=== PATIENT | female | born 1950 | race Caucasian/White ===

== ENCOUNTER 2016-09-14 11:45 | Inpatient (IN) | payer MEDICARE ==
[~2016-09-14] VITALS: Ht 165.1 cm; Wt 66.8 kg
--- NOTE | ~2016-09-14 | HEMODYNAMI ---
PATIENT:KATHARINA RAHMAN MEDICAL RECORD: [id number] : 54 LOCATION:[address] ADMISSION DATE: 09/14/16 Generatedon:09/16/201611:59 Patient name: KATHARINA RAHMAN Patient #: [id number] SSN: : 1950 Date of study: 09/16/2016 Page: Of Hemodynamic Procedure Report Patient Data Patient Demographics Procedure consent was obtained First Name: KATHARINA Gender: Female Last Name: LACEY : 1950 Patient #: [id number] Age: 66 year(s) Race: Unknown Additional ID: [id number] Contact details [address]: [address] [place] [address] State: [place] City: [place] Zip code: [address] Past Medical History Allergies Allergen Reaction Date Comments Reported Other allergy 09/16/2016 Elle Landeros Admission Admission Data Admission Date: 09/14/2016 Admission Time: 15:45 Room #: 2121 Procedure Procedure Types Cath Procedure Diagnostic Procedure [facility] w/Coronaries FFR/IVUS Intra-Coronary IVUS Initial PCI Procedure Coronary Stent Initial Miscellaneous Procedures Moderate Sedation up to 15 minutes Procedure Description Procedure Date Procedure Date: 09/16/2016 Procedure Start Time: 11:29 Procedure End Time: 11:55 Procedure Staff Name Function Nathaniel Aden MD Performing Physician Isaiah Soliman RT Scrub Ron Henry RN Nurse Roxy Arce RT Monitor Procedure Data Cath Procedure Fluoroscopy Diagnostic fluoroscopy Total fluoroscopy Time: 3.6 time: 3.6 min min Diagnostic fluoroscopy Total fluoroscopy dose: 629 dose: 629 mGy mGy Contrast Material Contrast Material Type Amount (ml) Isovue 300 97 Entry Location Entry Primary Successful Side Size Upsize Upsize Entry Closure Succes sful Closure Location (Fr) 1 (Fr) 2 (Fr) Remarks Device Remarks Femoral Right 5 Fr 6 Fr Exoseal artery Short Estimated blood loss: 10 ml Diagnostic catheters Device Type Used For End Catheter Placement Cordis 5Fr Pigtail Procedure Catheter (MP) Cordis 5Fr JL 4.0 Left Coronary Catheter (MP) Angiography Cordis 5Fr 3DRC Catheter Procedure (MP) Procedure Complications No complications Procedure Medications Medication Administration Route Dosage Oxygen NC 3 l/min Lidocaine 2% added to field 20 Heparin Flush Bag added to field 2 bags (1000units/500ml NS) 0.9% NaCl I.V. 100 ml/hr Fentanyl I.V. 50 mcg Radial Cocktail added to field 1 syringe (Verapomil 2mg/Nitro 400mcg/Heparin 1500units) Versed I.V. 1 mg Fentanyl I.V. 25 mcg Versed I.V. 1 mg Fentanyl I.V. 25 mcg Heparin Bolus I.V. 4000 units Integrilin (Bolus I.V. 6.2 ml 2mg/ml) Plavix P.O. 600 mg Hemodynamics Rest Heart Rate: 70 (bpm) Snapshots Pre Cath Intra NCS Post Cath Vital Signs Time Heart Resp SPO2 etCO2 [id number] NIBP Rhythm Pain Status Sed ation Rate (ipm) (%) (mmHg) (mmHg) (mmHg) Level (bpm) 11:15:51 68 19 91 0 0 111/69(98) NSR 8 (11) , 10( A) Utterly horrible 11:20:01 71 17 92 0 0 100/62(89) NSR 8 (11) , 10( A) Utterly horrible 11:24:09 71 17 92 0 0 108/58(79) NSR 8 (11) , 10( A) Utterly horrible 11:28:19 71 18 93 0 0 105/62(89) NSR 6 (11) , 10( A) Intense 11:32:29 77 17 92 0 0 106/56(79) NSR 2 (11) , 9(A ) Uncomfortable 11:36:39 76 16 91 0 0 105/59(82) NSR 0 (11) , No 9(A ) pain 11:40:48 76 15 91 0 0 100/57(76) NSR 0 (11) , No 9(A ) pain 11:44:56 77 16 91 0 0 105/55(80) NSR 0 (11) , No 9(A ) pain 11:49:04 77 18 92 0 0 97/64(84) NSR 0 (11) , No 9(A ) pain 11:53:08 79 18 93 0 0 114/65(92) NSR 0 (11) , No 9(A ) pain 11:58:29 76 17 92 0 0 99/62(87) NSR 0 (11) , No 10( A) pain Medications Time Medication Route Dose Verified Delivered Reason Note s Effectiveness by by 11:14:38 Oxygen NC 3 l/min Nathaniel Buffie used for Keiko Henry RN procedure 11:14:47 Lidocaine 2% added 20ml Nathanieljocelyn Armstrong for local to vial Keiko Aden MD anesthetic field 11:14:54 Heparin Flush added 2 bags Nathaniel Armstrong used for Bag to Keiko Aden MD procedure (1000units/500ml field NS) 11:15:05 0.9% NaCl I.V. 100 Nathaniel Buffie Per physician ml/hr Keiko Henry RN 11:24:32 Fentanyl I.V. 50 mcg Nathaniel Velasquez for chest Keiko Henry RN pain/rib 11:26:36 Radial Cocktail added 1 Nathaniel Velasquez not (Verapomil to syringe Keiko Henry RN used, 2mg/Nitro field femoral 400mcg/Heparin access 1500units) obtained 11:30:48 Versed I.V. 1 mg Nathaniel Velasquez for sedation Keiko Henry RN 11:30:54 Fentanyl I.V. 25 mcg Nathaniel Velasquez for chest Keiko Henry RN pain/rib 11:42:39 Versed I.V. 1 mg Nathaniel Velasquez for sedation Keiko Henry RN 11:42:44 Fentanyl I.V. 25 mcg Nathaniel Velasquez for chest Keiko Henry RN pain/rib 11:47:08 Heparin Bolus I.V. 4000 Nathaniel Velasquez for veri fied units Keiko Henry RN anticoagulation with dr aden 11:49:35 Integrilin I.V. 6.2 ml Nathaniel Velasquez for Wast ed (Bolus 2mg/ml) Keiko Henry RN antiplatelet 3.8 ml therapy of vial 11:56:38 Plavix P.O. 600 mg Nathaniel Velasquez for Keiko Henry RN antiplatelet therapy Procedure Log Time Note 10:38:23 ACC Patient presents with Unstable Angina CCS Anginal Class 3--Marked limitation of physical activity, angina occurs with ordinary activity.. 10:38:25 Diagnostic Cath status Urgent 10:38:27 Iasiah Soliman RT(R) sent for patient. Start room use. 10:38:37 Time tracking: Regular hours 10:38:41 Plan of Care:Hemodynamics will remain stable., Cardiac rhythm will remain stable., Comfort level will be maintained., Respiratory function will remain adequate., Patient/ family verbilizes understanding of procedure., Procedure tolerated without complication., Recovers from procedure without complications.. 11:14:38 Oxygen 3 l/min NC was administered by Ron Henry RN; used for procedure; 11:14:42 Patient received from Med II to CCL 1 Alert and oriented. Tansferred to table in Supine position. 11:14:43 Warm blankets applied, and ray hugger turned on for patient comfort. 11:14:45 Correct patient and procedure confirmed by team. 11:14:47 Lidocaine 2% 20ml vial added to field was administered by Nathaniel Aden MD; for local anesthetic; 11:14:47 Signed procedure consent form obtained from patient. 11:14:48 ECG and BP/O2 sat monitors applied to patient. 11:14:49 Vital chart was started 11:14:51 Baseline sample Acquired. 11:14:54 Heparin Flush Bag (1000units/500ml NS) 2 bags added to field was administered by Nathaniel Aden MD; used for procedure; 11:14:55 Rhythm: sinus rhythm 11:14:57 Full Disclosure recording started 11:15:04 H&P Date Dictated: 09/15/2016 Within 30 days and on chart.. 11:15:05 0.9% NaCl 100 ml/hr I.V. was administered by Ron Henry RN; Per physician; 11:15:07 Pre-procedure instructions explained to patient. 11:15:08 Family in waiting room. 11:15:11 Patient NPO since Midnight. 11:15:31 Patient allergic to Other allergyCeclor, Codeine 11:15:34 Is the patient allergic to Iodine/contrast media? No. 11:15:36 Is patient on blood thinner?No 11:15:38 Patient diabetic? No. 11:15:42 Snore? Yes 11:15:43 Sleep apnea? No 11:15:45 Deviated septum? No 11:15:55 Dentures? No ? 11:16:19 Patient pain scale 8/10 Rib pain. 11:16:26 IV patent on arrival in right hand with 0.9% NaCl at [facility]. 11:16:33 Lab results completed and on chart. 11:16:37 Right Radial & Right Groin area was prepped with chlora-prep and draped in sterile fashion 11:16:39 Alarms reviewed by R. N. 11:16:40 Sharps counted by scrub and verified by R.N. 11:16:43 Physician paged 11:19:03 Airway obstruction? Yes COPD 11:21:40 Use device set Radial Dx 11:21:42 Acist Syringe opened to sterile field. 11:21:42 Medline Cath Pack opened to sterile field. 11:21:42 Bag Decanter opened to sterile field. 11:21:43 Terumo 6Fr Slender Glidesheath opened to sterile field. 11:21:43 St Moreno 260cm J .035 wire opened to sterile field. 11:21:44 Acist Hand Control opened to sterile field. 11:21:44 Acist Manifold opened to sterile field. 11:21:45 Tegaderm 4 x 4 opened to sterile field. 11:21:45 MBrace Wrist Support opened to sterile field. 11:24:11 Zero performed for pressure channel P1 11:24:27 Zero performed for pressure channel P1 11:24:32 Fentanyl 50 mcg I.V. was administered by Ron Henry RN; for chest pain/rib; 11:26:36 Radial Cocktail (Verapomil 2mg/Nitro 400mcg/Heparin 1500units) 1 syringe added to field was administered by Ron Henry RN; ; not used, femoral access obtained 11:28:50 Physician arrived 11::51 --------ALL STOP TIME OUT------ 11:28:51 Final Timeout: patient, procedure, and site verified with staff and physician. All members of the team are in agreement. 11:28:54 Right Radial & Right Groin site verified by team. 11:28:58 Physical assessment completed. ASA score P 3 - A patient with severe systemic disease as per Nathaniel Aden MD. 11:29:01 Sedation plan: IV Moderate Sedation Versed, Fentanyl 11:29:35 Procedure started. 11:29:48 Local anesthetic to right radial artery with Lidocaine 2% by Nathaniel Aden MD.INITIAL ACCESS ONLY 11:30:48 Versed 1 mg I.V. was administered by Ron Henry RN; for sedation; 11:30:54 Fentanyl 25 mcg I.V. was administered by Ron Henry RN; for chest pain/rib; 11:33:38 No Radial 11:33:57 Use device set Multipack Set 11:34:43 Local anesthetic to right femoral artery with Lidocaine 2% by Nathaniel Aden MD.ADDITIONAL ACCESS 11:34:54 A 5 Fr sheath was inserted into the Right Femoral artery 11:35:01 Terumo 5Fr Jackson Sheath opened to sterile field. 11:35:03 Diagnostic Infinity 5Fr Multipack catheter opened to sterile field. 11:37:25 A Cordis 5Fr Pigtail Catheter (MP) was advanced over the wire and used for Procedure. 11:38:38 LV angiography performed. 11:38:50 EF : 55 % 11:38:51 Catheter removed. 11:39:02 A Cordis 5Fr JL 4.0 Catheter (MP) was advanced over the wire and used for Left Coronary Angiography. 11:39:52 Catheter removed. 11:40:19 A Cordis 5Fr 3DRC Catheter (MP) was advanced over the wire and used for Procedure. 11:40:22 RCA angiography performed. 11:42:39 Versed 1 mg I.V. was administered by Ron Henry RN; for sedation; 11:42:44 Fentanyl 25 mcg I.V. was administered by Ron Henry RN; for chest pain/rib; 11:42:46 Terumo 6Fr Jackson Sheath opened to sterile field. 11:43:00 Sheath upsized to a 6 Fr Short. 11:43:06 Medtronic Launcher 6Fr 3DRC guide catheter opened to sterile field. 11:43:15 6 Fr 3DRC guide catheter was inserted over the wire 11:43:26 Pereira Whisper J 300cm 0.014 guide wire opened to sterile field. 11:43:29 Wire advanced across lesion. 11:43:35 [employer] BasixCompak Inflation Kit opened to sterile field. 11:43:36 [place] Eagleye IVUS Catheter opened to sterile field. 11:43:45 IVUS catheter advanced over wire. 11:47:08 Heparin Bolus 4000 units I.V. was administered by Ron Henry RN; for anticoagulation; verified with dr aden 11:49:35 Integrilin (Bolus 2mg/ml) 6.2 ml I.V. was administered by Ron Henry RN; for antiplatelet therapy; Wasted 3.8 ml of vial 11:51:18 Inflation Number: 1 A Medtronic Integrity 4.0 X 15 stent was prepped and advanced across the Prox RCA. The stent was deployed at 15 ROBBIN for 0:10 (min:sec). 11:51:52 Wire removed. 11:51:53 Guide catheter removed. 11:52:06 Sheath removed intact; hemostasis achieved with Exoseal to the Right Femoral artery. 11:52:14 Cordis 6Fr Exoseal opened to sterile field. 11:52:17 Procedure ended.(Physican Out) 11:52:29 Fluoroscopy time 03.60 minutes. 11:53:04 Fluoroscopy dose: 629 mGy 11:53:04 Flurop Dose total: 629 11:53:08 Contrast amount:Isovue 300 97ml. 11:53:11 Sharps counted by scrub and verified by R.N. 11:53:32 Insertion/operative site no bleeding no hematoma. 11:53:39 Post right femoral artery:stable 11:53:46 Post Procedure Pulses reassessed and unchanged 11:53:51 Post-procedure physical assessment completed. ASA score P 3 - A patient with severe systemic disease as per Nathaniel Aden MD. 11:53:56 Post procedure rhythm: unchanged. 11:53:58 Estimated blood loss: 10 ml 11:54:01 Post procedure instruction explained to patient.Patient verbalizes understanding. 11:54:33 Procedure type changed to Cath procedure, Diagnostic procedure, LHC, LHC w/Coronaries, FFR/IVUS, Intra-Coronary IVUS Initial, PCI procedure, Coronary Stent Initial, Miscellaneous Procedures, Moderate Sedation up to 15 minutes 11:54:34 Procedure and supply charges have been captured, reviewed, submitted and are correct. 11:54:53 Procedure Complication : No complications 11:54:56 Vital chart was stopped 11:54:57 See physician's report for complete and final results. 11:54:59 Report given to [facility]. 11:55:04 Patient transfered to [facility] with Stretcher. 11:55:07 Procedure ended. 11:55:07 Full Disclosure recording stopped 11:55:10 End room use (Document Last) 11:55:16 ACC-PCI Only Patient was given prescriptions, or instructed by Nathaniel Aden MD to start/continue the following medications upon discharge: Plavix 11:56:38 Plavix 600 mg P.O. was administered by Ron Henry RN; for antiplatelet therapy; Intervention Summary Intervention Notes Time ActionType Lesion and Equipment Action# Pressure Duration Attributes Used 11:51:18 Place stent Prox RCA Medtronic 1 15 00:10 Integrity 4.0 X 15 stent Device Usage Item Name Manufacture Quantity Catalog Hospital Part Current Minimal Lot# / Number Charge Number Stock Stock Serial# Code Acist Acist 1 49995 238873 076954 000312 20 Syringe Medical Systems Inc Medline Cardinal 1 [id number] 659521 96373 621300 5 Cath Pack Health Bag Microtek 1 2002S 605337 05254 186532 5 Cartesian Inc. Terumo 6Fr Terumo 1 [id number] 144712 931833 111727 [address] St Moreno 1 434433 288492 857423 216540 30 260cm J .035 wire Acist Hand Acist 1 32927 675604 532807 248722 5 Mode De Faire Medical Systems Inc Acist Acist 1 19846 452159 705570 001836 5 [place]ic River Medical Systems Inc Tegaderm 4 3M 1 1626W 499353 229732 188677 5 x 4 MBrace Advanced 1 140-0250-00 789758 29334 944505 5 Wrist Vascular Support Dynamics Terumo 5Fr Terumo 1 [id number] 437083 859250 468170 40 Jackson Sheath Diagnostic Cardinal 1 [id number] 581969 07619 327490 30 Infinity Health 5Fr Multipack catheter Cordis 5Fr Cardinal 1 303744 5 Pigtail Health Catheter (MP) Cordis 5Fr Cardinal 1 563152 5 JL 4.0 Health Catheter (MP) Cordis 5Fr Cardinal 1 970130 5 3DRC Health Catheter (MP) Terumo 6Fr Terumo 1 [id number] 144392 893608 382406 40 Jackson Sheath Medtronic Medtronic 1 [id number] 207210 260913 938127 1 Launcher 6Fr 3DRC guide catheter Pereira Pereira 1 [id number] 638799 573324 485034 5 Whisper J Vascular 300cm 0.014 guide wire Merit Merit 1 [id number] 140706 279303 575985 15 BasixCompak Medical Inflation Kit [place] 1 [id number] 443870 340574 823913 8 [place] IVUS Catheter Medtronic Medtronic 1 [id number] 896895 347866 0 [id number] Integrity 4.0 X 15 stent Cordis 6Fr Cardinal 1 EX600 170581 477478 155952 10 [facility] Accera Signature Audit Whiteside Stage Time Signature Unsigned Intra-Procedure 09/16/2016 Roxy Arce 11:59:15 AM RT(R) Signatures Monitor : Roxy Arce Signature : RT Date : Time : [id number] [place] [address]
[~2016-09-14 11:45] MED LIST: CYCLOBENZAPRINE10 MG PO; HYDROCODONE-APA1 TAB PO; IBUPROFEN800 MG PO; IMITREX50 MG PO; PRILOSEC20 MG PO; PROAIR HFA8.5 GM INH; PROVENTIL/2.5 MG/3 M INH; ZANTAC300 MG PO
[2016-09-14 12:23] LABS: BASOPHILS 0.5 % (0-2); EOSINOPHILS 3.2 % (0-7); HEMATOCRIT 43.1 % (36.0-48.0); HEMOGLOBIN 14.9 g/dL (12-16); IMMATURE GRANULOCYTES 0.1 % (0-5); LYMPHOCYTES 20.4 % (15-50); MCH 31.7 pg (26.0-34.0); MCHC 34.6 g/dL (31.0-37.0); MCV 91.7 fL (80.0-100.0); MEAN PLATELET VOLUME 12.3 fL (7.4-10.4); MONOCYTES 6.5 % (2-11); NEUTROPHILS 69.3 % (40-80); PLATELET COUNT 162 10x3/uL (130-400); WBC 9.4 10x3/uL (4.8-10.8)
[2016-09-14 12:46] LABS: ALBUMIN 3.4 g/dL (3.4-5.0); ALKALINE PHOSPHATASE 110 U/L (46-116); ALT (SGPT) 22 U/L (10-68); CALC OSMOLALITY 284 mosm/kg (275-300); CALCIUM 9.1 mg/dL (8.5-10.1); CARBON DIOXIDE 24.1 mmol/L (21.0-32.0); CHLORIDE - SERUM 107 mmol/L (98-107); CREATININE - SERUM 0.5 mg/dL (0.6-1.3); GLUCOSE 117 mg/dL (74-106); PROTEIN - SERUM 7.3 g/dL (6.4-8.2); SODIUM 142 mmol/L (136-145); UREA NITROGEN 15 mg/dL (7-18); eGFR NON AFRICAN AMERICAN > 90 mL/min (90-120)
[2016-09-14 12:49] LABS: POTASSIUM - SERUM 4.1 mmol/L (3.5-5.1)
[2016-09-14 12:57] LABS: CHOL - HDL RATIO 3.5 ratio (2.3-4.1); CHOLESTEROL, TOTAL 161 mg/dL (0-200); CKMB 0.2 U/L (0.0-3.6); CREATINE KINASE 96 UL (21-215); HDL CHOLESTEROL 46 mg/dL (32-96); LDL CHOLESTEROL 92 mg/dL (0-100); TRIGLYCERIDE 117 mg/dL (30-200)
[2016-09-14 12:59] LABS: TROPONIN-I < 0.017 ng/mL (0.000-0.060)
--- NOTE | 2016-09-14 16:32 | NUR ---
TRANSFER FROM ER BY STRETCHER. OREINTED TO ROOM. CALL LIGHT IN REACH. WILL CONT. PLAN OF CARE.
--- NOTE | 2016-09-14 16:46 | NUR ---
RECIVED FROM ER PER BED. FAMILY AT SIDE. ADMIT ASSESSMENT DONE PER RN
[2016-09-14 17:08] VITALS: BP 116/50; BMI 24.5
[2016-09-14 19:00] VITALS: BP 100/48; BP 82/36
--- NOTE | 2016-09-14 19:34 | NUR ---
RESUMED CARE OF PT, LYING IN BED RESPIRATIONS EVEN AND UNLABORED ON 4LPM VIA NC. RIGHT HAND INFUSING CARDIZEM @ 10, NS @ KVO AND DILAUDID SOCK LINING EXAMINER. 70 CAF ON TELEMETRY. REQUESTS HEART BURN MEDICATION, HAS ZANTAC ORDERED. WAITING ON BIOLOGY LECTURER. WILL CONTINUE TO MONITOR. SEE NURSE ASSESSMENT. CALL LIGHT IN REACH.
--- NOTE | 2016-09-15 01:05 | NUR ---
CALL LIGHT IN REACH, WILL CONTINUE WITH PLAN OF CARE.
[2016-09-15 04:00] VITALS: BP 91/39
[2016-09-15 06:05] LABS: BASOPHILS 0.1 % (0-2); EOSINOPHILS 0 % (0-7); HEMATOCRIT 37.4 % (36.0-48.0); HEMOGLOBIN 12.2 g/dL (12-16); IMMATURE GRANULOCYTES 0.8 % (0-5); LYMPHOCYTES 6.9 % (15-50); MCHC 32.6 g/dL (31.0-37.0); MEAN PLATELET VOLUME 10.4 fL (7.4-10.4); MONOCYTES 0.5 % (2-11); NEUTROPHILS 91.7 % (40-80); RBC 3.93 10x6/uL (4.00-5.40); RDW 13.3 % (11.5-14.5); WBC 7.8 10x3/uL (4.8-10.8)
[2016-09-15 06:26] LABS: ANION GAP 15.5 mmol/L (8-16); CALCIUM 8.3 mg/dL (8.5-10.1); CARBON DIOXIDE 24.1 mmol/L (21.0-32.0); MCV 95.2 fL (80.0-100.0); PLATELET COUNT 217 10x3/uL (130-400); POTASSIUM - SERUM 3.6 mmol/L (3.5-5.1)
--- NOTE | 2016-09-15 06:29 | NUR ---
NO CHANGES FROM PREVIOUS ASSESSMENT, 53 SB ON TELEMETRY
--- NOTE | 2016-09-15 07:30 | NUR ---
RECEIVED PT IN BED AAOX4 RESP UNLABORED NAD NOTED SON AT BEDSIDE
[2016-09-15 08:00] VITALS: BP 90/46
[2016-09-15 12:00] VITALS: BP 95/39
[2016-09-15 13:24] LABS: BASOPHILS 0 % (0-2); EOSINOPHILS 0 % (0-7); HEMATOCRIT 37.6 % (36.0-48.0); HEMOGLOBIN 12.5 g/dL (12-16); IMMATURE GRANULOCYTES 0.5 % (0-5); LYMPHOCYTES 5.5 % (15-50); MCH 31.6 pg (26.0-34.0); MCHC 33.2 g/dL (31.0-37.0); MCV 94.9 fL (80.0-100.0); MEAN PLATELET VOLUME 10.7 fL (7.4-10.4); MONOCYTES 1.3 % (2-11); NEUTROPHILS 92.7 % (40-80); PLATELET COUNT 185 10x3/uL (130-400); RBC 3.96 10x6/uL (4.00-5.40)
[2016-09-15 13:33] LABS: ANION GAP 18.7 mmol/L (8-16); CARBON DIOXIDE 21.2 mmol/L (21.0-32.0); CREATININE - SERUM 1.7 mg/dL (0.6-1.3); POTASSIUM - SERUM 3.9 mmol/L (3.5-5.1)
[2016-09-15 14:15] VITALS: Ht 165.1 cm; Wt 66.8 kg
[2016-09-15 16:43] VITALS: BP 95/49
[2016-09-15 19:36] VITALS: BP 129/51
--- NOTE | 2016-09-15 20:07 | NUR ---
RESUMED CARE OF PT, LYING IN BED RESPIRATIONS EVEN AND UNLABORED ON 4LPM VIA NC. 87 SR ON TELEMETRY. RIGHT HAND INFUSING NS @ 20 AND DILAUDID TELE TECH. NO NEEDS AT BEDSIDE, CALL LIGHT IN REACH. WILL CONTINUE TO MONITOR. SEE NURSE ASSESSMENT.
--- NOTE | 2016-09-16 00:30 | NUR ---
L D RN AT BEDSIDE TO OBTAIN VITALS, CALL LIGHT IN REACH. WILL CONTINUE WITH PLAN OF CARE.
[2016-09-16 01:53] VITALS: BP 123/59
[2016-09-16 05:56] VITALS: BP 108/63
--- NOTE | 2016-09-16 07:54 | NUR ---
AAOX4 RESP UNLABORED DENIES ANY NEEDS AT THIS TIME
[2016-09-16 08:00] VITALS: BP 126/59
--- NOTE | 2016-09-16 08:00 | NUR ---
ASSESSMENT COMPLETED. UP TO BEDSIDE COMMODE WITH HELP. DENIES ANY PAIN AT PRESENT TIME. PT HAS A COMMISSIONER OF RELOCATION SERVICES PUMP WITH DILAIDID AT .. TELEMERY SHOWS SR AT 85. O2 AT 4 L/M PER NC. HAS SORENESS TO LEFT RIBS FROM A FALL AT HOME. IV OF NS TO RIGHT HAND. BACK TO BED WITH HELP
--- NOTE | 2016-09-16 12:48 | NUR ---
PT BACK FROM BUILDING ENERGY RETROFIT TECHNICIAN. V/S STABLE. RIGHT WRIST SITE ,NO SWELLING OR BLEEDING. RIGHT GROIN SOFT WITH DRSG DRY AND INTACT. PPP. PERSONNEL DIRECTOR PUMP RESTARTED. FAMILY AT BEDSIDE. TELEMERTY SHOWS SR.
[2016-09-16 14:41] LABS: BASOPHILS 0.1 % (0-2); EOSINOPHILS 0.1 % (0-7); HEMATOCRIT 35.1 % (36.0-48.0); HEMOGLOBIN 11.8 g/dL (12-16); IMMATURE GRANULOCYTES 0.4 % (0-5); LYMPHOCYTES 3.7 % (15-50); MCH 31.6 pg (26.0-34.0); MCHC 33.6 g/dL (31.0-37.0); MCV 94.1 fL (80.0-100.0); MEAN PLATELET VOLUME 10.3 fL (7.4-10.4); MONOCYTES 5.8 % (2-11); NEUTROPHILS 89.9 % (40-80); PLATELET COUNT 221 10x3/uL (130-400); RBC 3.73 10x6/uL (4.00-5.40); RDW 13.1 % (11.5-14.5); WBC 12.8 10x3/uL (4.8-10.8)
[2016-09-16 15:05] LABS: CALC OSMOLALITY 281 mosm/kg (275-300); CALCIUM 8.5 mg/dL (8.5-10.1); CARBON DIOXIDE 24.6 mmol/L (21.0-32.0); CHLORIDE - SERUM 105 mmol/L (98-107); GLUCOSE 145 mg/dL (74-106); SODIUM 137 mmol/L (136-145); UREA NITROGEN 27 mg/dL (7-18)
[2016-09-16 15:08] LABS: CREATININE - SERUM 0.6 mg/dL (0.6-1.3); POTASSIUM - SERUM 4.5 mmol/L (3.5-5.1); eGFR NON AFRICAN AMERICAN > 90 mL/min (90-120)
[2016-09-16 15:36] VITALS: BP 121/66
--- NOTE | 2016-09-16 16:00 | NUR ---
LYING QUIETLY. V/S STABLE. RIGHT GROIN SOFT WITH DRSG DRY AND INTACT. RIGHT WRIST WITH NO SWEELING OR BLEEDING. TELEMERTY SHOWS SR
--- NOTE | 2016-09-16 18:41 | NUR ---
LYING QUIETLY. DENIES ANY PAIN. RIGHT GROIN SOFT WITH DRSG DRY AND INTACT. PPP. OXYGEN FURNACE OPERATOR PUMP IN USE. TELEMERTY SHOWS SR
[2016-09-16 20:01] VITALS: BP 123/72
[2016-09-17 00:17] VITALS: BP 110/47
--- NOTE | 2016-09-17 00:49 | NUR ---
THIS SHIFT PATIENT HAS RESTING QUIETLY. CONT LICENSED LIFE AND HEALTH AGENT PUMP OF DILUADID. FAMILY AT BEDSIDE. SEE ASSESSMENT FOR FURTHER EVAL. MONITOR SR @ RATE OF 82.
--- NOTE | 2016-09-17 02:25 | NUR ---
PT AWAKENED WITH C/O NAUSEA. MEDICATED WITH ZOFRAN 4MG SIVP. SON AT BEDSIDE. MONITOR AND CPOC.
[2016-09-17 04:46] VITALS: BP 123/62
--- NOTE | 2016-09-17 05:47 | NUR ---
HAS SLEPT @ INTERVALS.
[2016-09-17 06:52] LABS: BASOPHILS 0 % (0-2); EOSINOPHILS 0 % (0-7); HEMOGLOBIN 13.2 g/dL (12-16); IMMATURE GRANULOCYTES 0.4 % (0-5); LYMPHOCYTES 4.1 % (15-50); MCH 30.9 pg (26.0-34.0); MCV 93.7 fL (80.0-100.0); MEAN PLATELET VOLUME 11.4 fL (7.4-10.4); MONOCYTES 5.5 % (2-11); RBC 4.27 10x6/uL (4.00-5.40); RDW 13.2 % (11.5-14.5)
[2016-09-17 06:53] LABS: PLATELET COUNT 169 10x3/uL (130-400); WBC 9.5 10x3/uL (4.8-10.8)
[2016-09-17 07:04] LABS: CALC OSMOLALITY 283 mosm/kg (275-300); CALCIUM 8.6 mg/dL (8.5-10.1); CARBON DIOXIDE 29.8 mmol/L (21.0-32.0); CHLORIDE - SERUM 104 mmol/L (98-107); CREATININE - SERUM 0.6 mg/dL (0.6-1.3); GLUCOSE 130 mg/dL (74-106); POTASSIUM - SERUM 3.9 mmol/L (3.5-5.1); SODIUM 139 mmol/L (136-145); UREA NITROGEN 23 mg/dL (7-18); eGFR NON AFRICAN AMERICAN > 90 mL/min (90-120)
--- NOTE | 2016-09-17 08:00 | NUR ---
ALERT AND ORIENTED X4. UP TO BEDSIDE COMMODE WITH ASSISTANCE. HEART RATE 160bpm SINUS TACH ON TELEMETRY. NOTIFY FIFI ALLEN. METOPROLOL 5mg IV ONE TIME ORDERED PER FIFI ALLEN. O2 SAT 84% WITH 4L NC. ENCOURAGE PURSED LIP BREATHING AND COUGHING. ENCOURAGE TO SPLINT COUGH WITH PILLOW TO HELP CONTROL PAIN. CONTINUE PLAN OF CARE. BED LOCKED AND LOW. CALL LIGHT IN REACH. TWO SIDERAILS UP. REFUSE SCDs.
[2016-09-17 08:19] VITALS: BP 135/90
[2016-09-17 12:05] VITALS: BP 104/73
--- NOTE | 2016-09-17 13:54 | OP ---
PATIENT NAME: KATHARINA RAHMAN MEDICAL RECORD: [id number] :54 LOCATION:[address]M2 [address].2121 ADMISSION DATE:09/14/16 SURGEON: RACHELL DUKES MD OPERATION DATE: 09/14/16 DATE OF OPERATION: 09/16/2016 PROCEDURES: 1. PTCA stent RCA. 2. Intravascular ultrasound RCA. 3. Left heart catheterization. 4. Selective coronary angiography. 5. Left ventriculogram. INDICATIONS: Chest pain compatible with angina and coronary artery disease. PROCEDURE IN DETAIL: After informed consent was obtained and after a detailed explanation of the risks, benefits as well as alternative therapies, the patient elected to proceed with angiogram and angioplasty. The right femoral area is prepped and draped in normal sterile fashion. The right femoral artery was cannulated via modified Seldinger technique with placement of 6-Burkinan sheath. All catheters exchanged through this sheath. FINDINGS: Left ventriculogram was performed in standard 30-degree RODRIGUEZ view reveals preserved cardiac wall motion, ejection fraction is 60%. SELECTIVE CORONARY ANGIOGRAPHY: 1. Left main showed no significant angiographic disease. 2. Left anterior descending has moderate irregularities, but no flow-limiting stenosis. 3. The left circumflex has moderate irregularities, but no flow-limiting stenosis. 4. The right coronary has 65% to 70% stenosis confirmed by intravascular ultrasound in the proximal vessel. PTCA STENT OF THE RCA: The stent used is 4.0 x 15 mm Integrity. Result was 0% residual stenosis. OVERALL IMPRESSION: Successful percutaneous transluminal coronary angioplasty stent of the right coronary artery with 0% residual stenosis. TRANSINT:[id number] Voice Confirmation ID: [id number] DOCUMENT ID: [id number] RACHELL DUKES MD at 1354 CC: [id number] DICTATION DATE: 09/16/16 1157 CHEMICAL EQUIPMENT SALES ENGINEER: 09/16/162048 ADM IN [place] [address] [place] [address]
--- NOTE | 2016-09-17 13:54 | CN ---
PATIENT NAME:KATHARINA HERZOG MEDICAL RECORD: [id number] : 54 LOCATION:. D.2121 ADMIT DATE: 09/14/16 ACCOUNT: [id number] CONSULTING PHYSICIAN: RACHELL DUKES MD REFERRING PHYSICIAN: AMBER VILLELA MD DATE OF CONSULTATION: 09/15/2016 DIAGNOSES: 1. Unstable angina. 2. Syncope. 3. Fall. 4. Chronic obstructive pulmonary disease. 5. Smoking history. 6. Family history of coronary artery disease. 7. Hypertension. 8. Hyperlipidemia. HISTORY OF PRESENT ILLNESS: Mrs. Herzog has multiple cardiac risk factors including hypertension, hyperlipidemia, smoking and family history. She has been having 1 month of progressive chest pain. She had an episode of syncope, fell on her left side. She clearly has chest pain from her chest wall contusion. Chest pain she had prior to this was compatible with angina, it was an aching and squeezing sensation across the chest in the left area, especially with any exertion. It has progressed in the month in an unstable fashion. She has no previous cardiac history. PHYSICAL EXAMINATION: GENERAL APPEARANCE: Well-nourished, well-developed, appears stated age. Level of distress, comfortable. PSYCHIATRIC: Mental status, alert, normal affect. Orientation, oriented to time, place and person. EYES: Lids and conjunctiva, noninjected. No discharge, no pallor. ENT: Lips, teeth, gums, normal dentition. Oropharynx, no cyanosis, no pallor. NECK: Carotid arteries, bilateral normal upstroke, no bruits, no thrills. JUGULAR VEINS: No jugular venous pressure or distention. CERVICAL LYMPH NODES: Nontender, nonenlarged. THYROID: Not enlarged. Nontender. No nodules. LUNGS: Respiratory effort, unlabored. CHEST: Normal curvature. No thoracic deformity. No chest wall tenderness. Percussion, resonant. Auscultation, clear. No wheezes, no rales, no rhonchi. CARDIOVASCULAR: Precordial exam, nondisplaced. No heaves or pericardial thrills. Rate and rhythm, regular. Heart sounds, normal S1, normal S2. No S3, no gallop, no rub. Systolic murmur, not heard. Diastolic murmur, not heard. EXTREMITIES: No cyanosis, no edema. Peripheral pulses, full and equal in all extremities, except as noted. No bruits appreciated. ABDOMEN: Soft, nondistended. Normal aorta. No bruit. Nontender. No masses. Liver, nontender, no hepatomegaly. Spleen, nontender, no splenomegaly. MUSCULOSKELETAL: No joint tenderness. No joint swelling. No erythema. NEUROLOGICAL: Normal gait, normal strength, normal tone. SKIN: Warm and dry. REVIEW OF SYSTEMS: The patient reports easy bruising but reports no swollen glands. The patient reports no fever, no night sweats, no significant weight gain, no significant weight loss. No significant exercise tolerance. The patient reports no dry eyes, no irritation, no vision change. Patient reports CONSULT REPORT [id number] KATHARINA HERZOG no difficulty hearing and no ear pain. Patient reports no frequent nose bleeds or nose and sinus problems. Patient reports on arm pain on exertion. No shortness of breath while lying down. No history of heart murmur. Patient reports no cough, no wheezing or coughing up blood. Patient reports no abdominal pain, no vomiting. Normal appetite. No diarrhea and not vomiting blood. No nausea and no constipation. Patient reports no incontinence. No difficulty urinating. No hematuria. No increased frequency. Patient reports no muscle aches. No weakness, no arthralgias, no back pain. No swelling of the extremities. Patient reports no abnormal mole, no jaundice, no rashes. Reports no loss of consciousness. No weakness and no numbness. No seizures, dizziness, or headaches. The patient reports no depression, no sleep disturbance, feeling safe in a relationship and no alcohol abuse. Patient reports on fatigue. Reports no runny nose or sinus pressure. No itching, no hives, and no frequent sneezing. OVERALL IMPRESSION: Progressive unstable angina. We will proceed with coronary angiography. Further care depends upon findings of the angiography. TRANSINT:[id number] Voice Confirmation ID: [id number] DOCUMENT ID: [id number] RACHELL DUKES MD at 1354 CC: [id number] DICTATION DATE: 09/15/16 1229 MATERIAL DISPOSITION INSPECTOR: 09/15/16 1715 ADM IN [address] [place] [address]
--- NOTE | 2016-09-17 13:54 | EC ---
PATIENT:KATHARINA RAHMAN DATE OF SERVICE: 09/14/16 SEX: F MEDICAL RECORD: [id number] DATE OF : 54 LOCATION:D.M2 D.212 AGE OF PATIENT: 66 ADMISSION DATE: 09/14/16 REFERRING PHYSICIAN: INTERPRETING PHYSICIAN: RACHELL ADEN MD ECHOCARDIOGRAM REPORT ECHO CHARGES 4 ECHO COMPLETE CLINICAL DIAGNOSIS: CHF HX OF HTN ECHOCARDIOGRAPHIC MEASUREMENTS (adult normal given) AC root (d.<3.7cm) 3.6 cm LV Septum d (<1.2 cm> 1.8 cm Valve Excursion 1.9 cm LV Septum (systole) 2.0 cm Left Atria (s.<4.0cm> 3.4 cm LVPW d(<1.2cm) 1.3 cm RV (d.<2.3cm) 2.6 cm LVPW (sytole) 1.6 cm LV diastole(<5.6CM) 4.4 cm MV E-F(>70mm/sec) cm LV systole 2.3 cm LVOT Diameter 1.8 cm MV exc.(>10mm) 1.3 cm Est.ejection fraction (50-75%) % Pericardial Effusion N DOPPLER: LVIT cm/sec A 119 cm/sec E 80.0 cm/sec LA cm/sec RVSP mmHg LVOT 125 cm/sec AOP1/2T m/s Asc. Ao 173 cm/sec RVOT 83 cm/sec RA cm/sec PA 123 cm/sec AV Gradient Peak 12.01mmHg AV Mean 5.76 mmHg AV Area 1.8 cm MV Gradient Peak 7.93 mmHg MV Mean 3.02 mmHg MV Area cm COMMENTS: Community Ambassador: Jennifer TELLO Operator Prefinish: 1 Dr. Aden TAPE# PACS DATE OF SERVICE: 09/14/2016 Echocardiogram FINDINGS: 1. Left ventricular chamber size is within normal limits. Left ventricular systolic function is normal. Overall ejection fraction estimated at 55%. 2. Left atrium is within normal limits at 3.4 cm. Right atrium and right ventricular chamber sizes are as well within normal limits. 3. Valvular structures have normal structure and motion. ECHOCARDIOGRAM REPORT [id number] KATHARINA RAHMAN 4. Doppler interrogation reveals only mild aortic insufficiency. No other valvular insufficiency or stenosis. 5. No evidence of pericardial effusion or left ventricular thrombus. TRANSINT:[id number] Voice Confirmation ID: [id number] DOCUMENT ID: [id number] RACHELL ADEN MD at 1354 CC: [id number] DICTATION DATE: 09/15/16 1021 TOLL BRIDGE ATTENDANT: 09/15/16 1203 ADM IN [id number] [place] [address]
[2016-09-17 15:13] VITALS: BP 101/62
--- NOTE | 2016-09-17 15:28 | NUR ---
ALERT AND ORIENTED X4. SITTING UP IN BED. BP-101/62 MANUALLY. NOTIFY OF BP DROPPING. DC OUTGOING INSPECTOR PER . NORCO PRN ORDERED. ENCOURAGE DEEP BREATHING AND COUGHING TO PREVENT PNEUMONIA. UNCONTROLLED A-FIB 121bpm ON TELEMETRY. PAGE TO NOTIFY RHYTHM CHANGE.
[2016-09-17 19:00] VITALS: BP 116/60
--- NOTE | 2016-09-17 20:07 | NUR ---
RESUMED CARE OF PT, UP ON BEDSIDE COMMODE. RESPIRATIONS EVEN AND UNLABORED ON 4LPM VIA NC. 90 SR ON TELEMETRY. RIGHT HAND INFUSING NS @ KVO. REQUESTS PAIN MEDICATION FOR LEFT RIB PAIN 8:10. FAMILY AT BEDSIDE, CALL LIGHT IN REACH. SEE NURSE ASSESSMENT.
[2016-09-18] VITALS: BP 118/62
[2016-09-18 05:34] LABS: BASOPHILS 0 % (0-2); EOSINOPHILS 0 % (0-7); HEMATOCRIT 35.9 % (36.0-48.0); HEMOGLOBIN 11.9 g/dL (12-16); IMMATURE GRANULOCYTES 0.4 % (0-5); LYMPHOCYTES 7.9 % (15-50); MCH 30.9 pg (26.0-34.0); MCHC 33.1 g/dL (31.0-37.0); MCV 93.2 fL (80.0-100.0); MEAN PLATELET VOLUME 11.6 fL (7.4-10.4); MONOCYTES 7.9 % (2-11); NEUTROPHILS 83.8 % (40-80); PLATELET COUNT 157 10x3/uL (130-400); RBC 3.85 10x6/uL (4.00-5.40); RDW 13.3 % (11.5-14.5); WBC 8.3 10x3/uL (4.8-10.8)
[2016-09-18 05:35] LABS: CARBON DIOXIDE 30.5 mmol/L (21.0-32.0); CHLORIDE - SERUM 105 mmol/L (98-107); GLUCOSE 134 mg/dL (74-106); SODIUM 141 mmol/L (136-145); eGFR NON AFRICAN AMERICAN 76 mL/min (90-120)
[2016-09-18 05:36] LABS: CALC OSMOLALITY 288 mosm/kg (275-300); CREATININE - SERUM 0.8 mg/dL (0.6-1.3); UREA NITROGEN 29 mg/dL (7-18)
[2016-09-18 08:17] VITALS: BP 106/50
--- NOTE | 2016-09-18 08:39 | NUR ---
RESTS IN BED EATING BRK WITHOUT NEEDS VOICED. RESP UL ON . CALL LIGHT IN REACH. WILL CONT. PLAN OF CARE.
--- NOTE | 2016-09-18 09:34 | NUR ---
Rehab Note- Acute Rehab Prescreen order received. The patient appears to be a good acute rehab patient when ready for discharge from the acute hospital. Will continue to follow the patient at this time. Thank you for this referral! Erica Pascual RN Clinical Liaison, [facility] Rehab
--- NOTE | 2016-09-18 09:54 | NUR ---
ASSESSMENT DONE. DENIES NEEDS. SON AT SIDE.
[2016-09-18 11:22] VITALS: BP 104/51
--- NOTE | 2016-09-18 13:42 | NUR ---
Rehab Note- Visited with the patient is she very interested in acute rehab stay. Plan admit when ready for discharge from the acute hospital. Spoke with DIONTE Cobos. Stated he would relay message to YANELY Price about discharge to [facility] Rehab. Thank you for this referral! Erica Pascual RN Clinical Liaison, [facility] Rehab
--- NOTE | 2016-09-18 13:54 | NUR ---
Nutrition Follow Up: Pt is eating 46% meal avg on an AHA diet; po intake improving. Wt stable. +BM 09/16/16. Labs reviewed. Meds noted including Solu-Medrol, Lasix. Rec changing diet to regular to encourage po intake. RD following.
[2016-09-18] MEDS ORDERED: BETAPACE 120 M120 MG PO (14:14)
[2016-09-18] MEDS ORDERED: PLAVIX75 MG PO (14:14)
[2016-09-18] MEDS ORDERED: BENZONATATE200 MG PO (14:15)
[2016-09-18] MEDS ORDERED: MIRALAX17 GM PO (14:15)
[2016-09-18] MEDS ORDERED: ASPIRIN81 MG PO (14:15)
[2016-09-18] MEDS ORDERED: PREDNISONE10 MG PO (14:16)
--- NOTE | 2016-09-18 18:10 | NUR ---
DC GIVEN TO PT REPORT CALLED TO REHAB
[2016-09-18] MEDS ORDERED: PULMICORT0.5 MG/21 INH (20:24)
[2016-09-18] MEDS ORDERED: BROVANA15 MCG/2 M INH (20:25)
== END 2016-09-18 18:20 | DRG 249 ==
LOC: D.ER 11:45 → D.M2 15:45
PROVIDERS: Emergency Medicine; Internal Medicine Interventional Cardiology; ADMIT Family Medicine
PROC: 4A023N7 Measurement of Cardiac Sampling and Pressure, Left Heart, Percutaneous Approach (ICD-10-PCS; 2016-09-16)
PROC: 02703DZ Dilation of Coronary Artery, One Artery with Intraluminal Device, Percutaneous Approach (ICD-10-PCS; principal; 2016-09-16 09:00)
PROC: B240ZZ3 Ultrasonography of Single Coronary Artery, Intravascular (ICD-10-PCS; 2016-09-16 09:00)
DX: I25.110 Atherosclerotic heart disease of native coronary artery with unstable angina pectoris (principal); J44.1 Chronic obstructive pulmonary disease with (acute) exacerbation; E78.5 Hyperlipidemia, unspecified; I10 Essential (primary) hypertension; S20.219A Contusion of unspecified front wall of thorax, initial encounter; W19.XXXA Unspecified fall, initial encounter; Z72.0 Tobacco use

== ENCOUNTER 2016-09-18 17:32 | Inpatient (IN) | payer MEDICARE ==
[~2016-09-18] VITALS: Ht 165.1 cm; Wt 66.7 kg
[~2016-09-18 17:32] MED LIST changes: +ASPIRIN81 MG PO; +BENZONATATE200 MG PO; +BETAPACE 120 M120 MG PO; +MIRALAX17 GM PO; +PLAVIX75 MG PO; +PREDNISONE10 MG PO
--- NOTE | 2016-09-18 19:10 | NUR ---
PATIENT IN BED, AWAKE. HOB UP 45 DEGREES. SON VISITING AT BEDSIDE.
[2016-09-18] MEDS ORDERED: PULMICORT0.5 MG/21 INH (20:24)
[2016-09-18] MEDS ORDERED: BROVANA15 MCG/2 M INH (20:25)
--- NOTE | 2016-09-18 21:55 | NUR ---
SON RECENTLY DEPARTED. FOUND PATIENT UP USING BSC WITHOUT CALLING FOR ASSIST. REMINDED HER THAT SNE NEEDS TO CALL FOR STAFF MEMBER TO BE PRESENT FOR ALL TRANSFERS TO INSURE HER SAFETY RETURNED PATIENT TO BED, HOB UP 45 DEGREES.
--- NOTE | 2016-09-18 22:30 | NUR ---
GAVE PATIENT HS MEDS INCLUDING NORCO 10/325 X1 TAB AND IBUPROFEN 800MG, BOTH PO, FOR LEFT RIB PAIN OF LEVEL 10/10. ASKED HER TO REMAINS SEATED AT BEDSIDE (PER HER REQUEST DUE TO PAIN) AND NOT TO GET UP UNTIL I RETURNED PRESENTLY WITH HER ADMISSION DOCUMENTS AND WE WILL THEN CONDUCT HER ADMISSION ASSESSMENT AND GATHER HER ADMISSION HISTORY AND HAVE HER SIGN THE DOCUMENTS MENTIONED. SAID SHE UNDERSTANDS.
[2016-09-18 22:40] VITALS: BMI 24.5
[2016-09-18 22:42] VITALS: BP 125/57
--- NOTE | 2016-09-18 23:35 | NUR ---
ADMISSION HISTORY AND ASSESSMENT COMPLETE. ADMIT DOCUMENTS SIGNED.
--- NOTE | 2016-09-19 02:10 | NUR ---
RESTING QUIETLY IN BED, EYES CLOSED. APPEARS COMFORTABLE.
--- NOTE | 2016-09-19 04:45 | NUR ---
RESTING QUIETLY ON RIGHT SIDE, HOB UP 30 DEGREES. RESPIRING QUIETLY.
--- NOTE | 2016-09-19 06:30 | NUR ---
GAVE PATIENT IBUPROFEN 800MG AND NORCO 10/325 X1 TAB, BOTH PO FOR PAIN LEVEL OF 10/10 IN LEFT RIBS. ASSISTED PATIENT UP TO BSC AND BACK AFTER URINATING ABOUT 200ML OF LIGHT ZEFERINO URINE.
[2016-09-19 07:01] LABS: BASOPHILS 0 % (0-2); EOSINOPHILS 0.5 % (0-7); HEMATOCRIT 38.9 % (36.0-48.0); HEMOGLOBIN 13.1 g/dL (12-16); IMMATURE GRANULOCYTES 0.4 % (0-5); LYMPHOCYTES 20.2 % (15-50); MCHC 33.7 g/dL (31.0-37.0); MEAN PLATELET VOLUME 11.9 fL (7.4-10.4); NEUTROPHILS 69.9 % (40-80); RBC 4.23 10x6/uL (4.00-5.40)
[2016-09-19 07:14] LABS: PLATELET COUNT 100 10x3/uL (130-400); WBC 10.9 10x3/uL (4.8-10.8)
[2016-09-19 07:16] LABS: CALC OSMOLALITY 293 mosm/kg (275-300); CALCIUM 8.6 mg/dL (8.5-10.1); CARBON DIOXIDE 32.2 mmol/L (21.0-32.0); CHLORIDE - SERUM 105 mmol/L (98-107); CREATININE - SERUM 0.7 mg/dL (0.6-1.3); POTASSIUM - SERUM 3.5 mmol/L (3.5-5.1); SODIUM 144 mmol/L (136-145); UREA NITROGEN 34 mg/dL (7-18); eGFR NON AFRICAN AMERICAN 89 mL/min (90-120)
[2016-09-19 07:23] LABS: GLUCOSE 82 mg/dL (74-106)
--- NOTE | 2016-09-19 07:30 | NUR ---
PT RESTING IN BED WAITNG FOR BREAKFAST, DENIES NEEDS. WCTM.
[2016-09-19 08:00] VITALS: BP 121/49
--- NOTE | 2016-09-19 08:50 | NUR ---
AM MEDS ADMINISTERED. PT DENIES NEEDS, CURRENTLY IN THERAPY AND TOLERATING WELL. WCTM.
--- NOTE | 2016-09-19 11:50 | NUR ---
PT IN THERAPY GYM, TOLERATING WELL, DENIES NEEDS. WCTM.
[2016-09-19 12:16] VITALS: Ht 165.1 cm; Wt 66.7 kg
--- NOTE | 2016-09-19 13:43 | NUR ---
PT RESTING IN BED WATCHING TV, DENIES NEEDS. WCTM.
--- NOTE | 2016-09-19 18:44 | NUR ---
PT ASSISTED TO USE BEDSIDE COMMODE. PT HAD MEDIUM BM. PT BACK IN BED. WCTM.
[2016-09-19 19:50] VITALS: BP 142/52
--- NOTE | 2016-09-19 21:15 | NUR ---
ASSESSMENT AND HS MEDS COMPLETE. GAVE PATIENT NOR 10/325 X1 TAB AND IBUPROFEN 800MG, BOTH PO, FOR PAIN LEVEL OF 9/10 IN LEFT RIBS. ASSISTED PATIENT UP TO BSC WHERE SHE URINATED AND HAD A SMALL VOLUME UNFORMED BM. HELD HER MIRALAX FOR MULTIPLE LOOSE BM'S TODAY AND YESTERDAY.
--- NOTE | 2016-09-19 22:10 | NUR ---
RESTING QUIETLY IN BED, EYES CLOSED. HOB UP 45 DEGREES.
--- NOTE | 2016-09-20 | NUR ---
RESTING IN BED, EYES CLOSED.
--- NOTE | 2016-09-20 02:15 | NUR ---
RESTING IN BED, EYES CLOSED. HOB UP 45 DEGREES. CONTINUES ON O2 PER N/C @ 5L FLOW.
--- NOTE | 2016-09-20 04:30 | NUR ---
RESTING QUIETLY ON RIGHT SIDE, HOB UP 45 DEGREES. RESPIRATIONS UNLABORED..
--- NOTE | 2016-09-20 05:50 | NUR ---
IN BED, EYES CLOSED. NO APPARENT DISCOMFORT.
[2016-09-20 08:00] VITALS: BP 136/62
--- NOTE | 2016-09-20 08:00 | NUR ---
SHIFT ASSMT COMPLETED.DENIES NEEDS.SET UP IN BED FOR MEAL.CL IN REACH.
--- NOTE | 2016-09-20 12:00 | NUR ---
SITTING UP EATING LUNCH.CL IN REACH.
--- NOTE | 2016-09-20 16:00 | NUR ---
RESTING QUIETLY.CL IN REACH.
[2016-09-20 20:00] VITALS: BP 128/57
--- NOTE | 2016-09-20 20:00 | NUR ---
PT IN BED WITH HOB UP FOR COMFORT. WATCHING TV. 02 @ 5L VIA N/C. NO IV. BED IN LOWEST POSITION AND CALL LIGHT WITHIN REACH.
--- NOTE | 2016-09-20 22:55 | NUR ---
PT. SITTING ON THE SIDE OF HER BED AND COMPLETING HER MENU FOR TOMORROW. NO VOICED NEEDS AND HER CALL LIGHT IS WITHIN REACH.
--- NOTE | 2016-09-21 02:20 | NUR ---
PT LYING IN BED WITH HOB UP FOR COMFORT. EYES CLOSED. RESP. EVEN. BED IN POSITION AND CALL LIGHT WITHIN REACH.
--- NOTE | 2016-09-21 04:19 | NUR ---
PT LYING ING BED. EYES CLOSED. CHEST RISING AND FALLING. BED IN LOWEST POSITION AND CALL LIGHT WITHIN REACH.
[2016-09-21 08:00] VITALS: BP 127/64
--- NOTE | 2016-09-21 08:00 | NUR ---
SHIFT ASSMT COMPLETED.DENIES NEEDS.BREAKFAST TRAY GIVEN.SET-UP PROVIDED.CL IN REACH.
--- NOTE | 2016-09-21 12:00 | NUR ---
FEW BITES OF LUNCH EATEN.WATCHING TV.FAMILY BROUGHT DINNER FROM OUTSIDE.
[2016-09-21 20:00] VITALS: BP 112/52
--- NOTE | 2016-09-21 20:13 | NUR ---
C/O RIBS HURTING AND GAURDING LEFT CHEST AREA .REQUESTED IBUPROPHEN. MED GIVEN PER ORDERS.
--- NOTE | 2016-09-22 00:26 | NUR ---
C/O RIB PAIN AND REQUESTEDPAIN PILL. MED GIVEN PER ORDERS. NO OTHER C/O VOICED.
--- NOTE | 2016-09-22 02:29 | NUR ---
RESTING IN BED WITH EYES CLOSED. NO S/S OF DISTRESS OBSERVED. CALL LIGHT AND OVERBED TABLE IN REACH.
[2016-09-22 07:01] LABS: BASOPHILS 0.1 % (0-2); HEMATOCRIT 38.5 % (36.0-48.0); HEMOGLOBIN 12.7 g/dL (12-16); LYMPHOCYTES 27.2 % (15-50); MCH 30.8 pg (26.0-34.0); MCV 93.4 fL (80.0-100.0); MEAN PLATELET VOLUME 11.2 fL (7.4-10.4); MONOCYTES 8.7 % (2-11); RBC 4.12 10x6/uL (4.00-5.40); RDW 13.3 % (11.5-14.5)
[2016-09-22 07:03] LABS: PLATELET COUNT 202 10x3/uL (130-400)
[2016-09-22 07:32] LABS: CALC OSMOLALITY 289 mosm/kg (275-300); CARBON DIOXIDE 30.9 mmol/L (21.0-32.0); CHLORIDE - SERUM 104 mmol/L (98-107); CREATININE - SERUM 0.6 mg/dL (0.6-1.3); GLUCOSE 120 mg/dL (74-106); POTASSIUM - SERUM 3.1 mmol/L (3.5-5.1); SODIUM 143 mmol/L (136-145); UREA NITROGEN 23 mg/dL (7-18); eGFR NON AFRICAN AMERICAN > 90 mL/min (90-120)
--- NOTE | 2016-09-22 08:00 | NUR ---
PT AM MEDS ADMINISTERED. PT BP 97/44, NO PAIN MEDICATION GIVEN AT THIS TIME. WCTM.
[2016-09-22 08:26] VITALS: BP 97/44
--- NOTE | 2016-09-22 09:48 | NUR ---
PT K+ 3.1. PT GIVEN 40 MEQ OF LIQUID K+. LABS ORDERED. [facility].
--- NOTE | 2016-09-22 09:58 | NUR ---
PT BP UP TO 113/48. PT GIVEN REQUESTED PAIN PILL AT THIS TIME. WCTM.
--- NOTE | 2016-09-22 11:21 | RHP ---
PATIENT: KATHARINA RAHMAN MEDICAL RECORD: [id number] ACCOUNT: [id number] LOCATION:[facility]1108 : 54 ADMISSION DATE: 09/18/16 REHABILITATION HISTORY AND PHYSICAL EXAMINATION POST ADMISSION PHYSICIAN EXAMINATION Post-Admission Physical Examination and History and Physical DATE OF ADMISSION: 09/18/2016 ADMITTING DIAGNOSIS: Acute exacerbation of chronic obstructive pulmonary disease. HISTORY OF PRESENT ILLNESS: Patient was admitted to the inpatient rehab for acute exacerbation of COPD. She is a 66-year-old female patient who was admitted to the acute hospital to the ER after a fall, chest pain and shortness of breath. She reports getting dizzy and shortness of breath in her bathroom. She fell, landing on her left side. She underwent a heart cath on September 16 due to a 1-month history of progressive chest pain compatible with angina. She had stent placement in the right coronary artery. She has had increased weakness and shortness of breath requiring 4 L via nasal cannula. She lives at home with her family. She is independent with ADLs and uses a cane to get around with ambulation. She is currently set up for mod assist and mod assist to total assist for mobility. She plans to return home, hopefully get to her prior level of functioning better. COMORBIDITIES: Include congestive heart failure, emphysema, falls, chest wall contusion, COPD, chest pain, unstable angina, syncope, smoking history, hypertension, hyperlipidemia, controlled AFib, chronic lumbago and compression fracture. PAST MEDICAL HISTORY: Significant for coronary artery disease, COPD, scoliosis, migraines, poor circulation, chronic back pain, compression fracture and tobacco use. PAST SURGICAL HISTORY: Includes appendectomy, tonsillectomy and adenoidectomy, hysterectomy and a surgery on her arm. ALLERGIES: CODEINE AND CECLOR. CURRENT MEDICATIONS: Include Pulmicort 0.5 b.i.d., albuterol and Atrovent updrafts q.6 hours. She is on Pepcid 40 mg daily. She is on a prednisone taper. She is on Protonix 40 mg daily, Plavix 75 mg daily, aspirin chewable 81 mg daily, Brovana 15 mcg b.i.d., Imitrex 50 mg as needed for headache, sotalol 120 mg b.i.d., polyethylene glycol 17 g in 8 ounces of water daily. She is on ibuprofen 800 mg t.i.d. p.r.n. pain, Salmon 10/325 q.6 hours p.r.n. pain, Flexeril 10 mg t.i.d. as needed and Tessalon Perles 200 mg t.i.d. p.r.n. HABITS: She does have a history of tobacco use. FAMILY HISTORY: Noncontributory. SOCIAL HISTORY: The patient once again wants to go home and live with her family. HISTORY AND PHYSICAL [id number] KATHARINA RAHMAN REVIEW OF SYSTEMS: GENERAL: Does complain of a little weakness. HEENT: Does complain of cold, cough, and congestion at times. CARDIOVASCULAR: Denies any chest pain at this time now. LUNGS: Does complain of shortness of breath especially with ambulation. PHYSICAL EXAMINATION: VITAL SIGNS: Stable. She is afebrile. GENERAL: Well-developed female in no acute distress, alert upon exam. HEENT: Normocephalic, atraumatic. Mucosa is moist. She does have some noted white areas in her mouth consistent with thrush. CARDIOVASCULAR: Irregular rate and rhythm. LUNGS: Decreased breath sounds bilaterally. ABDOMEN: Benign. EXTREMITIES: No clubbing, cyanosis or edema. NEUROLOGIC: Seems intact. LABORATORY DATA: White count is 10.9, H&H 13 and 38, and platelet count is 100. Sodium 144, potassium 3.5, BUN and creatinine of 34 and 0.7, and her blood sugar was 82. ASSESSMENT: This is a 66-year-old female patient admitted to rehab with a working diagnosis of acute exacerbation of chronic obstructive pulmonary disease with noted debility. The patient has potential to make improvement. We instituted the following multidisciplinary therapies including, but not limited to physical, occupational, respiratory, speech, nutritional services, prosthetics and orthotics. Given her complex medical condition, risk of further medical complications, rehabilitative services cannot be offered at a lower level of care such as a half-way facility. PLAN: 1. Admit to [facility] rehab for intensive inpatient therapy to include the following disciplines: A. Physical therapy to improve gait, all transfer skills and bed mobility to a modified independent level. B. Occupational therapy to improve activities of daily living to a modified independent level. C. Case management to assist with discharge planning and placement options. D. Nutrition to assist with nutritional needs. E. Rehabilitation nursing to assist in monitoring the patient's underlying medical conditions and to assist with any type of bowel or bladder management. 3. The patient's current medication and medical care will be continued. 4. The patient will be placed on standard fall precautions. 5. The patient's estimated length of stay is approximately 7-10 days. 6. Discuss this patient during care team staff meeting this week. TRANSINT:[id number] Voice Confirmation ID: [id number] DOCUMENT ID: [id number] SADE notes whether there has been none or any medical/functional change since admission: - SADE attests patient continues to be appropriate for IRF: HISTORY AND PHYSICAL [id number] KATHARINA RAHMAN - LORENA BIRD MD at 1121 CC: [id number] DICTATION DATE: 09/19/16 0802 YELLOW PAGES SPACE SALESPERSON: 09/19/16 1041 ADM IN [facility] [address] [id number]
--- NOTE | 2016-09-22 11:52 | NUR ---
PT RESTING IN BED, RECENTLY SHOWERED. PT DENIES NEEDS. WCTM.
--- NOTE | 2016-09-22 14:15 | NUR ---
PT RESTING IN BED, DENIES NEEDS. WCTM.
--- NOTE | 2016-09-22 16:48 | NUR ---
PT RESTING IN BED, DENIES NEEDS. WCTM.
--- NOTE | 2016-09-22 19:28 | NUR ---
ASSISTED TO TOILET AND BACK TO BED. LYING IN BED WITH EYES OPEN AND TV ON AT THIS TIME. NO S/S OF DISTRESS OBSERVED. CALL LIGHT AND OVERBED TABLE IN REACH.
--- NOTE | 2016-09-22 23:45 | NUR ---
RESTING IN BED WITH EYES CLOSED. NO S/S OF DISTRESS OBSERVED. O2@ 2 LITERS PER NASAL CANNULA IN PLACE. BED ALARM IN PLACE AND FUNCTIONING PROPERLY. CALL LIGHT AND OVERBED TABLE IN REACH.
[2016-09-23 03:58] VITALS: BP 120/54
--- NOTE | 2016-09-23 06:23 | NUR ---
RESTING IN BED WITH EYES CLOSED AT THIS TIME. NO S/S OF DISTRESS OBSERVED. CALL LIGHT AND OVERBED TABLE IN REACH. BED ALARM ON AND FUNCTIONIING PROPERLY.
--- NOTE | 2016-09-23 07:20 | NUR ---
PT IS RESTING IN BED WITH EYES CLOSED. AWOKE EASILY TO VERBAL STIMULI. ALERT AND ORIENTED X 3. PT DENIES ANY PAIN OR DISCOMFORT AT THIS TIME. 02 IS ON @ 5LPM PER NC. NO SOB NOTED. SR'S ARE UP X 3 IN BED. CALL LIGHT AND BEDSIDE TABLE ARE WITHIN EASY REACH.
[2016-09-23 08:12] VITALS: BP 96/42
--- NOTE | 2016-09-23 09:19 | NUR ---
PT IS PARTICIPATING IN THERAPY AT THIS TIME.
--- NOTE | 2016-09-23 11:29 | NUR ---
PT IS RESTING IN BED AFTER THERAPY. NO ACUTE DISTRESS NOTED.
--- NOTE | 2016-09-23 13:18 | NUR ---
PT IS RESTING IN BED BETWEEN THERAPIES. NO ACUTE DISTRESS NOTED.
--- NOTE | 2016-09-23 13:41 | NUR ---
NUTRITION MONITORING & EVAL CHART REVIEWED, PT VISIT. AHA DIET WITH 100% INTAKE MEALS TODAY. PT REPORTS GOOD APPETITE. RD FOLLOWING
--- NOTE | 2016-09-23 15:35 | NUR ---
PT IS RESTING IN BED WITH EYES CLOSED. NO DISTRESS NOTED.
--- NOTE | 2016-09-23 17:58 | NUR ---
PT IS RESTING IN BED WITH EYES OPEN. NO NEEDS VOICED. FILLING OUT MENU FOR TOMORROW.
--- NOTE | 2016-09-23 18:46 | NUR ---
RESTING QUIETLY IN BED. DENIES NEEDS OR C/O. CALL LIGHT IN REACH
--- NOTE | 2016-09-23 19:40 | NUR ---
ASSISTED PT TO BATHROOM.
[2016-09-23 23:45] VITALS: BP 105/49
--- NOTE | 2016-09-24 02:55 | NUR ---
REST IN BED, EYE CLOSE, CALL LIGHT WITHIN REACH.
--- NOTE | 2016-09-24 04:08 | NUR ---
PT RESTING QUIETLY, HOB ELEVATED 30 DEGREES, PT HR BRADYCARDIA.
--- NOTE | 2016-09-24 07:30 | NUR ---
PT IS RESTING IN BED WITH EYES CLOSED. AWOKE EASILY TO VERBAL STIMULI. PT SAT UP ON SIDE OF BED TO FEED SELF BREAKFAST. FEEDING SELF WITHOUT DIFFICULTY. CHRIS ALARM IS SET ON BED. O2 IS ON @ 5LPM PER NC. NO SOB NOTED. SR'S ARE UP X 3 IN BED. CALL LIGHT ANB BEDSIDE TABLE ARE WITHIN EASY REACH.
[2016-09-24 08:23] VITALS: BP 104/41
--- NOTE | 2016-09-24 09:36 | NUR ---
PT IS PARTICIPATING IN THERAPY AT THIS TIME.
--- NOTE | 2016-09-24 11:04 | NUR ---
PT IS IN THE GYM WITH THERAPY. NO ACUTE DISTESS NOTED.
--- NOTE | 2016-09-24 14:00 | NUR ---
PT IS PARTICIPATING IN THERAPY AT THIS TIME.
--- NOTE | 2016-09-24 15:58 | NUR ---
PT IS RESTING IN BED WITH EYES CLOSED. RESPS ARE EVEN AND UNLABORED. NO ACUTE DISTRESS NOTED.
--- NOTE | 2016-09-24 16:07 | NUR ---
CARE TEAM MEETING: [facility] SHE HAS NO O2 AT HOME, HER SON LIVES WITH HER AND WILL ASSIST HER AT DISCHARGE. TINATIVE DISCHARGE DATE IS 09/30/16. WILL CONTINUE TO FOLLOW WITH PATIENT AND WILL ASSIT WITH DISCHARGE NEEDS.
--- NOTE | 2016-09-24 18:16 | NUR ---
PT RESTING IN BED TALKING ON THE PHONE. NO DISTRESS NOTED.
--- NOTE | 2016-09-24 19:15 | NUR ---
SITTING ON BEDSIDE, CONVERSING WITH HER SON. DENIES NEEDS.
--- NOTE | 2016-09-24 20:20 | NUR ---
PATIENT SITTING UP ON BEDSIDE. DENIES NEEDS.
[2016-09-24 22:00] VITALS: BP 108/57
--- NOTE | 2016-09-24 22:00 | NUR ---
ASSESSMENT AND HS MEDS COMPLETE. HELD MIRALAX DUE TO ONGOING LOOSE STOOLS. GAVE PATIENT NORCO 5/325 X2 TABS PO FOR PAIN LEVEL OF 9/10 IN LEFT RIBS. PATIENT REQUESTED AND SIGNED A BED ALARM WAIVER. AMBULATES SAFELY WITH CANE. SAYS IF SHE FEELS UNSTEADY SHE WILL CALL FOR ASSIST.
--- NOTE | 2016-09-25 02:25 | NUR ---
CONTINUES IN BED ON RIGHT SIDE. QUIET USING REGULAR RESPIRATIONS. NO APPARENT DISTRESS.
--- NOTE | 2016-09-25 04:10 | NUR ---
PATIENT JUST RETURNED FROM BR. C/O PAIN LEVEL OF 9/10 IN LEFT RIBS. GAVE HER NORCO 10 X1 TAB PO.
--- NOTE | 2016-09-25 06:00 | NUR ---
RESTING IN BED ON RIGHT SIDE, EYES CLOSED.
--- NOTE | 2016-09-25 07:32 | NUR ---
PT IS RESTING IN BED WITH HOB UP 45 DEGREES FEEDING SELF BREAKFAST. NO SWALLOWING PROBLEMS NOTED. PT VOICED COMPLAINT OF LEFT SIDE RIB PAIN LEVEL OF 5 AT THIS TIME. 02 IS ON @ 3LPM PER NC. VSS. SR'S ARE UP X 2 IN BED. CALL LIGHT AND BEDSIDE TABLE ARE WITHIN EASY REACH.
--- NOTE | 2016-09-25 08:00 | NUR ---
SITTING UP IN BED.DENIES NEEDS.CL IN REACH.
[2016-09-25 09:42] VITALS: BP 107/46
--- NOTE | 2016-09-25 10:40 | NUR ---
PT IS PARTICIPATING IN THERAPY AT THIS TIME.
--- NOTE | 2016-09-25 13:49 | NUR ---
PT IS FEEDING SELF LUNCH IN HER ROOM. NO COMPLAINT VOICED.
--- NOTE | 2016-09-25 17:06 | NUR ---
PT EATING SUPPER IN HER ROOM. VOICED COMPLAINT OF BACK PAIN LEVEL OF 6. MEDICATED PER MAR.
--- NOTE | 2016-09-25 19:10 | NUR ---
UP IN BR AT THIS TIME.
--- NOTE | 2016-09-25 20:20 | NUR ---
IN BED, AWAKE. NO COMPLAINTS AT THIS TIME.
[2016-09-25 22:00] VITALS: BP 120/65
--- NOTE | 2016-09-25 22:00 | NUR ---
ASSESSMENT AND HS MEDS COMPLETE. HELD MIRALAX FOR ONGOING LOOSE BM'S. PREPARED A WARM MOIST PACK FOR PATIENT TO APPLY TO LEFT RIBCAGE IT IS 1 HOUR TOO SOON TO GIVE HER NORCO FOR RIB PAIN.
--- NOTE | 2016-09-25 23:40 | NUR ---
GAVE PATIENT NORCO 10/325 X1 TAB PO FOR PAIN LEVEL OF 8/10 IN LEFT RIBS.
--- NOTE | 2016-09-26 01:50 | NUR ---
RESTING IN BED, EYES CLOSED. NO APPARENT DISTRESS.
--- NOTE | 2016-09-26 04:35 | NUR ---
IN BED, LYING ON RIGHT SIDE WITH HOB UP 45 DEGREES. RESPIRING QUIETLY.
--- NOTE | 2016-09-26 05:57 | NUR ---
C/O PAIN LEVEL OF 9/10 IN LEFT RIBS. GAVE HER NORCO 10/325 X1 TAB PO FOR PAIN WELL HER SCHEDULED PO PROTONIX.
--- NOTE | 2016-09-26 08:15 | NUR ---
PT AM MEDS ADMINISTERD. PT DENIES NEEDS.
[2016-09-26 08:30] VITALS: BP 115/50
--- NOTE | 2016-09-26 11:30 | NUR ---
PT REQ AND REC'D PRN PAIN MEDICATION FOR GENERALIZED PAIN. WCTM.
--- NOTE | 2016-09-26 16:37 | NUR ---
PT RESTING IN BED, DENIES NEEDS. WCTM.
--- NOTE | 2016-09-26 19:00 | NUR ---
IN BED, AWAKE. DENIES NEEDS.
[2016-09-26 20:55] VITALS: BP 119/62
--- NOTE | 2016-09-26 20:55 | NUR ---
ASSESSMENT AND HS MEDS COMPLETE. HELD MIRALAX PATIENT REFUSED IT. GAVE HER IBUPROFEN 800MG PO FOR PAIN LEVEL OF 5/10 IN LEFT RIBS.
--- NOTE | 2016-09-26 22:00 | NUR ---
RESTING QUIETLY IN BED, EYES CLOSED.
--- NOTE | 2016-09-27 00:05 | NUR ---
IN BED, CHANGING POSITION. DENIES NEEDS.
--- NOTE | 2016-09-27 00:48 | NUR ---
JUST RETURNED FROM TOILETING. GAVE HER NORCO 10/325 X1 TAB PO FOR PAIN LEVEL OF 8/10 IN LEFT RIBS.
--- NOTE | 2016-09-27 02:05 | NUR ---
RESTING QUIETLY IN BED, EYES CLOSED. APPEARS COMFORTABLE.
--- NOTE | 2016-09-27 04:40 | NUR ---
IN BED, EYES CLOSED. RESPIRING QUIETLY.
--- NOTE | 2016-09-27 05:35 | NUR ---
RESTING IN BED, EYES CLOSED.
--- NOTE | 2016-09-27 06:15 | NUR ---
GAVE PATIENT IBUPROFEN 800 MG FOR PAIN LEVEL OF 6/10 IN LEFT RIBS.
--- NOTE | 2016-09-27 08:16 | NUR ---
PT RESTING IN BED WITH EYES OPEN CALL LIGHT IN REACH PT EATING BREAKFAST PAIN PILL GIVEN FOR 10/02 PAIN TO LEFT RIBS AND BACK WILL REASSESS
[2016-09-27 09:11] VITALS: BP 109/58
--- NOTE | 2016-09-27 13:43 | NUR ---
PT RESTING IN BED WITH EYES OPEN CALL LIGHT IN REACH WILL MONITER
--- NOTE | 2016-09-27 19:30 | NUR ---
pt watching tv, provided pt with tomorrows menu. pt states she will complete it. pt denies any needs, respirations regular and unlabored, pt ambulates with cane, oxygen on at 2 l/nc
[2016-09-27 19:43] VITALS: BP 124/58
--- NOTE | 2016-09-28 00:10 | NUR ---
pt resting in bed, respirations regular and unlabored, no s/s of acute distress.
--- NOTE | 2016-09-28 03:30 | NUR ---
pt resting quietly, no s/s of acute distress. respirations regular and unlabored.
--- NOTE | 2016-09-28 06:56 | NUR ---
RESTING QUIETLY IN BED. NO S/S DISTRESS. CALL LIGHT IN REACH
[2016-09-28 08:08] VITALS: BP 123/55
--- NOTE | 2016-09-28 08:15 | NUR ---
PT RESTING IN BED WITH EYES OPEN CALL LIGHT IN REACH WILL MONITER
--- NOTE | 2016-09-28 18:50 | NUR ---
PT RESTING IN BED WITH EYES OPEN CALL LIGHT IN REACH WILL MONITER
--- NOTE | 2016-09-28 19:00 | NUR ---
RESTING IN BED ON RIGHT SIDE. HOB UP 45 DEGREES. NO EVIDENT DISTRESS.
[2016-09-28 21:35] VITALS: BP 117/56
--- NOTE | 2016-09-28 21:35 | NUR ---
ASSESSMENT AND HS MEDS COMPLETE. GAVE PATIENT IBUPROFEN 800MG PO FOR PAIN LEVEL OF 8/10 IN LEFT RIBS. NORCO NOT AVAILABLE TO PATIENT UNTIL AROUND MIDNIGHT. PATIENT IS AWARE OF THIS.
--- NOTE | 2016-09-28 22:20 | NUR ---
RESTING QUIETLY, EYES CLOSED.
--- NOTE | 2016-09-29 00:35 | NUR ---
RESTING IN BED ON RIGHT SIDE. HOB REMAINS UP @ 45 DEGREES. NO DISTRESS EVIDENT.
--- NOTE | 2016-09-29 02:45 | NUR ---
RESTING QUIETLY ON RIGHT SIDE. APPEARS COMFORTABLE.
--- NOTE | 2016-09-29 04:30 | NUR ---
RESTING QUIETLY IN BED. RESPIRATIONS UNLABORED.
--- NOTE | 2016-09-29 05:07 | NUR ---
JUST RETURNED FROM BR. C/O PAIN LEVEL OF 10/10 IN LEFT RIBS. GAVE HER NORCO 10/325 X1 TAB PO.
[2016-09-29 05:39] LABS: CALC OSMOLALITY 286 mosm/kg (275-300); CALCIUM 8.4 mg/dL (8.5-10.1); CARBON DIOXIDE 29.6 mmol/L (21.0-32.0); CHLORIDE - SERUM 105 mmol/L (98-107); CREATININE - SERUM 0.6 mg/dL (0.6-1.3); GLUCOSE 89 mg/dL (74-106); POTASSIUM - SERUM 3.8 mmol/L (3.5-5.1); SODIUM 141 mmol/L (136-145); UREA NITROGEN 33 mg/dL (7-18); eGFR NON AFRICAN AMERICAN > 90 mL/min (90-120)
--- NOTE | 2016-09-29 05:50 | NUR ---
PATIENT RESTING QUIETLY IN BED, EYES CLOSED.
[2016-09-29 06:06] LABS: BASOPHILS 0.4 % (0-2); EOSINOPHILS 1.5 % (0-7); HEMATOCRIT 36.2 % (36.0-48.0); HEMOGLOBIN 11.9 g/dL (12-16); IMMATURE GRANULOCYTES 2.9 % (0-5); LYMPHOCYTES 24.6 % (15-50); MCH 31.6 pg (26.0-34.0); MCHC 32.9 g/dL (31.0-37.0); MEAN PLATELET VOLUME 11.8 fL (7.4-10.4); MONOCYTES 5.7 % (2-11); NEUTROPHILS 64.9 % (40-80); RBC 3.77 10x6/uL (4.00-5.40); RDW 14.2 % (11.5-14.5)
[2016-09-29 06:09] LABS: PLATELET COUNT 124 10x3/uL (130-400)
--- NOTE | 2016-09-29 07:16 | NUR ---
RESTING QUIETLY IN BED. NO S/S DISTRESS. CALL LIGHT IN REACH
--- NOTE | 2016-09-29 07:32 | NUR ---
PT RESTING IN BED WITH EYES OPEN CALL LIGHT IN REACH WILL MONITER
--- NOTE | 2016-09-29 15:34 | NUR ---
PATIENT DISCHARGING HOME WITH FAMILY ON 09/30/16. AT THIS TIME PATIENT HAS DECLINED HOME HEALTH. ORDERS HAVE BEEN FAXED TO [facility] FOR O2. DR. PLEITEZ 10/09/16 @ 2:00, DR. DUKES/ALEJANDRO CALIX 10/20/16 @ 1:30. PATIENT CHOICE FORM FOR HOME HEALTH( WHICH WAS DECLINED) AND [facility] FORM SIGNED, EXPLAINED AND FILED IN CHART.
--- NOTE | 2016-09-29 16:27 | NUR ---
PT RESTING IN BED WITH EYES OPEN CALL LIGHT IN REACH NO PROBLEMS WILL MONITER
--- NOTE | 2016-09-29 19:00 | NUR ---
GAVE PATIENT HER MENU TO COMPLETE FOR LUNCH ONLY TOMORROW, IN CASE SHE DOES NOT DISCHARGE EARLIER.
--- NOTE | 2016-09-29 19:30 | NUR ---
PT REST IN BED AND WATCH TV.
[2016-09-30 00:37] VITALS: BP 121/56
--- NOTE | 2016-09-30 02:59 | NUR ---
REST IN BED, EYE CLOSE, CALL LIGHT WITHIN REACH.
--- NOTE | 2016-09-30 08:00 | NUR ---
SITTING UP IN BED.CL IN REACH.
[2016-09-30] MEDS ORDERED: HYDROCODONE-APA1 TAB PO (11:21)
--- NOTE | 2016-09-30 14:06 | NUR ---
PT DISCHARGED TO HOME VIA WHEELCHAIR WITH FAMILY MEDS CALLED TO [facility] ON [address] DISCHARGE SUMMARY AND MEDS REVIEWED NO QUESTIONS
== END 2016-09-30 14:07 | disposition home or self-care (01) | DRG 191 ==
LOC: D.REHAB 17:32
PROVIDERS: ADMIT Emergency Medicine
DX: J44.1 Chronic obstructive pulmonary disease with (acute) exacerbation (principal); I20.0 Unstable angina; Z95.5 Presence of coronary angioplasty implant and graft; I11.0 Hypertensive heart disease with heart failure; I50.9 Heart failure, unspecified; S20.219D Contusion of unspecified front wall of thorax, subsequent encounter; W19.XXXD Unspecified fall, subsequent encounter; R55 Syncope and collapse; Z87.891 Personal history of nicotine dependence; E78.5 Hyperlipidemia, unspecified; I48.91 Unspecified atrial fibrillation; M54.5 Low back pain; G89.29 Other chronic pain

== ENCOUNTER 2017-01-01 10:26 | Emergency (ER) | payer MEDICARE ==
[2016-09-19 12:16] VITALS: BMI 24.4
[~2017-01-01 10:26] MED LIST changes: +BROVANA15 MCG/2 M INH; +PULMICORT0.5 MG/21 INH
[2017-01-01 11:49] LABS: BASOPHILS 0.6 % (0-2); EOSINOPHILS 0.8 % (0-7); HEMATOCRIT 42.2 % (36.0-48.0); HEMOGLOBIN 13.6 g/dL (12-16); IMMATURE GRANULOCYTES 0.3 % (0-5); INR 0.89 (0.85-1.17); MCH 30.9 pg (26.0-34.0); MCHC 32.2 g/dL (31.0-37.0); MCV 95.9 fL (80.0-100.0); MEAN PLATELET VOLUME 11.4 fL (7.4-10.4); MONOCYTES 7.8 % (2-11); NEUTROPHILS 76.5 % (40-80); PROTIME 11.9 SECONDS (11.6-15.0); RDW 12.7 % (11.5-14.5); WBC 9.9 10x3/uL (4.8-10.8)
[2017-01-01 11:51] LABS: ALBUMIN 3.9 g/dL (3.4-5.0); ALKALINE PHOSPHATASE 125 U/L (46-116); ALT (SGPT) 30 U/L (10-68); BILIRUBIN - TOTAL 0.29 mg/dL (0.2-1.3); CALC OSMOLALITY 289 mosm/kg (275-300); CALCIUM 9.8 mg/dL (8.5-10.1); CARBON DIOXIDE 29.4 mmol/L (21.0-32.0); CHLORIDE - SERUM 104 mmol/L (98-107); CREATININE - SERUM 0.6 mg/dL (0.6-1.3); PROTEIN - SERUM 7.9 g/dL (6.4-8.2); SODIUM 144 mmol/L (136-145); UREA NITROGEN 16 mg/dL (7-18); eGFR NON AFRICAN AMERICAN > 90 mL/min (90-120)
[2017-01-01 11:54] LABS: GLUCOSE 137 mg/dL (74-106)
[2017-01-01 11:58] LABS: MAGNESIUM - SERUM 2.1 mg/dL (1.8-2.4); PRO BNP 503 pg/mL (0-125)
[2017-01-01 12:00] LABS: PLATELET COUNT 191 10x3/uL (130-400)
[2017-01-01 12:02] LABS: TROPONIN-I < 0.017 ng/mL (0.000-0.060)
[2017-01-01 13:09] LABS: UDS - AMPHET NEGATIVE QUAL (NEGATIVE); UDS - BARB NEGATIVE QUAL (NEGATIVE); UDS - BENZO NEGATIVE QUAL (NEGATIVE); UDS - COCAINE NEGATIVE QUAL (NEGATIVE); UDS - OPIATE POSITIVE QUAL (NEGATIVE); UDS - PCP NEGATIVE QUAL (NEGATIVE); UDS - THC NEGATIVE QUAL (NEGATIVE)
[2017-01-01 13:23] LABS: APPEARANCE CLEAR (CLEAR); COLOR YELLOW (YELLOW); NITRITE NEGATIVE (NEGATIVE); PROTEIN 1+ mg/dL (NEGATIVE); SPECIFIC GRAVITY 1.025 (1.005-1.020)
[2017-01-01 13:24] LABS: BACTERIA FEW /hpf (NONE SEEN); BILIRUBIN NEGATIVE (NEGATIVE); EPITHELIAL CELLS 0-5 /hpf (0-5); GLUCOSE NEGATIVE (NEGATIVE); KETONE NEGATIVE (NEGATIVE); RED CELLS - URINE 0-5 /hpf (0-5); UROBILINOGEN NORMAL (NORMAL); WHITE CELLS - URINE RARE /hpf (0-5)
== END 2017-01-01 16:26 | disposition home or self-care (01) ==
LOC: D.ER 10:26
PROVIDERS: Nurse Practitioner Family
DX: J44.1 Chronic obstructive pulmonary disease with (acute) exacerbation (principal); I50.9 Heart failure, unspecified

== ENCOUNTER 2017-01-31 03:50 | Inpatient (IN) | payer MEDICARE ==
[~2017-01-31] VITALS: Ht 165.1 cm; Wt 60.0 kg
[2017-01-31 04:51] LABS: BASOPHILS 0.1 % (0-2); EOSINOPHILS 0.2 % (0-7); HEMATOCRIT 39.5 % (36.0-48.0); IMMATURE GRANULOCYTES 0.4 % (0-5); LYMPHOCYTES 6.9 % (15-50); MCH 30.6 pg (26.0-34.0); MCHC 32.9 g/dL (31.0-37.0); MCV 92.9 fL (80.0-100.0); MEAN PLATELET VOLUME 10.1 fL (7.4-10.4); MONOCYTES 7.3 % (2-11); NEUTROPHILS 85.1 % (40-80); RBC 4.25 10x6/uL (4.00-5.40); RDW 12.7 % (11.5-14.5)
[2017-01-31 04:54] LABS: PLATELET COUNT 298 10x3/uL (130-400)
[2017-01-31 05:04] LABS: ALBUMIN 3.5 g/dL (3.4-5.0); ALKALINE PHOSPHATASE 105 U/L (46-116); ALT (SGPT) 23 U/L (10-68); CALC OSMOLALITY 285 mosm/kg (275-300); CALCIUM 8.9 mg/dL (8.5-10.1); CARBON DIOXIDE 29.5 mmol/L (21.0-32.0); CHLORIDE - SERUM 103 mmol/L (98-107); CREATININE - SERUM 0.5 mg/dL (0.6-1.3); GLUCOSE 165 mg/dL (74-106); POTASSIUM - SERUM 3.3 mmol/L (3.5-5.1); PROTEIN - SERUM 7.3 g/dL (6.4-8.2); SODIUM 141 mmol/L (136-145); UREA NITROGEN 16 mg/dL (7-18); eGFR NON AFRICAN AMERICAN > 90 mL/min (90-120)
[2017-01-31 05:15] LABS: CREATINE KINASE 28 UL (21-215); MAGNESIUM - SERUM 1.7 mg/dL (1.8-2.4); TROPONIN-I 0.033 ng/mL (0.000-0.060)
--- NOTE | 2017-01-31 07:01 | NUR ---
RECEIVED REPORT FROM JAMESON IN ER. PATIENT TO UNIT SOON.
--- NOTE | 2017-01-31 07:11 | NUR ---
PATIENT ARRIVED TO UNIT FROM ER VIA BED AT THIS TIME.
[2017-01-31] MEDS ORDERED: PRINIVIL20 MG PO (07:38)
[2017-01-31] MEDS ORDERED: FUROSEMIDE20 MG PO (07:38)
--- NOTE | 2017-01-31 07:55 | NUR ---
MEDICATED FOR NAUSEA AT THIS TIME.
[2017-01-31 08:14] VITALS: BP 115/70
--- NOTE | 2017-01-31 11:34 | NUR ---
MEDICATED FOR PAIN AT THIS TIME. NO DISTRESS.
[2017-01-31 11:35] VITALS: BP 139/56
[2017-01-31 12:26] VITALS: BP 115/70; Ht 165.1 cm; Wt 60.0 kg
[2017-01-31 16:20] VITALS: BP 125/75
--- NOTE | 2017-01-31 17:25 | NUR ---
RESTING IN BED WITH EYES OPEN. PATIENTS SON AT BEDSIDE. CALL LIGHT WITHIN REACH. NO DISTRESS.
--- NOTE | 2017-01-31 18:10 | NUR ---
WAITING FOR PRODUCTION ZONE LEADER TO OVERRIDE MEDICATIONS DUE AT 0797.
--- NOTE | 2017-01-31 19:15 | NUR ---
RECEIVED REPORT, WILL ASSUME CARE OF PT, PT SITTING ON SIDE OF BED, BED IS LOW, SRX2, CALL LIGHT IN REACH, WILL CONTINUE PLAN OF CARE
[2017-01-31 20:00] VITALS: BP 127/71
[2017-02-01] VITALS: BP 116/69
--- NOTE | 2017-02-01 02:19 | NUR ---
ASSESSMENT COMPLETE, SEE FLOWSHEET, PT SLEEPING, NO DISTRESS NOTICED, BED IS LOW, SRX2, CALL LIGHT IN REACH, WILL CONTINUE PLAN OF CARE
[2017-02-01 04:00] VITALS: BP 123/68
[2017-02-01 04:53] LABS: BASOPHILS 0 % (0-2); EOSINOPHILS 0 % (0-7); HEMATOCRIT 42.7 % (36.0-48.0); IMMATURE GRANULOCYTES 0.5 % (0-5); LYMPHOCYTES 9.8 % (15-50); MCH 30.6 pg (26.0-34.0); MCHC 32.8 g/dL (31.0-37.0); MCV 93.4 fL (80.0-100.0); MEAN PLATELET VOLUME 11.1 fL (7.4-10.4); MONOCYTES 8.6 % (2-11); NEUTROPHILS 81.1 % (40-80); RBC 4.57 10x6/uL (4.00-5.40); WBC 10.1 10x3/uL (4.8-10.8)
[2017-02-01 04:54] LABS: PLATELET COUNT 218 10x3/uL (130-400)
[2017-02-01 05:31] LABS: CALCIUM 9.5 mg/dL (8.5-10.1); CARBON DIOXIDE 32.2 mmol/L (21.0-32.0); CHLORIDE - SERUM 103 mmol/L (98-107); GLUCOSE 148 mg/dL (74-106); SODIUM 142 mmol/L (136-145)
[2017-02-01 05:32] LABS: CALC OSMOLALITY 291 mosm/kg (275-300); CREATININE - SERUM 0.8 mg/dL (0.6-1.3); POTASSIUM - SERUM 3.8 mmol/L (3.5-5.1); UREA NITROGEN 30 mg/dL (7-18); eGFR NON AFRICAN AMERICAN 76 mL/min (90-120)
--- NOTE | 2017-02-01 07:15 | NUR ---
REPORT RECEIVED. RR EVEN AND UNLABORED. PT UP TO BSC, RECEVING BREATHING TX. PT DENIES NEEDS AT THIS TIME. PT IS ALERT AND ORIENTED. WILL CTM.
--- NOTE | 2017-02-01 08:00 | NUR ---
PT EDUCATED ON NEED FOR RESP. CULTURE. VERBALIZED UNDERSTANDING, BUT EXPLAINED THAT SHE IS NOT COUGHING ANYTHING UP.
[2017-02-01 08:05] VITALS: BP 126/66
[2017-02-01 11:34] VITALS: BP 108/63
--- NOTE | 2017-02-01 13:07 | NUR ---
PT RESTING QUILETY, RR EVEN AND UNLABORED. PT DENIES NEEDS AT THIS TIME. WILL CTM.
--- NOTE | 2017-02-01 14:50 | NUR ---
PT STILL C/O PAIN AT 12/02. WILL PAGE DR. MORALES ABOUT SOMETHING FOR ELSE FOR PAIN.
--- NOTE | 2017-02-01 15:03 | NUR ---
SPOKE TO DR. MORALES REGARDING PTS PAIN LEVEL. GAVE TELEPHONE ORDER FOR HYDROCODONE 10-325 Q6 HRS.
[2017-02-01 15:56] VITALS: BP 116/51
--- NOTE | 2017-02-01 18:34 | NUR ---
PT RESTING QUIETLY, RR EVEN AND UNLABORED. PT DENIES NEEDS AT THIS TIME. WILL GIVE REPORT ON PT CONDTION FOR THE DAY.
--- NOTE | 2017-02-01 19:05 | NUR ---
RECEIVED REPORT, WILL ASSUME CARE OF PT, PT SITTING UP ON SIDE OF BED, BREATHING TREATMENT IN PROGRESS, PT DENIES ANY NEEDS AT THIS TIME, CALL LIGHT IN REACH, WILL CONTINUE PLAN OF CARE
[2017-02-01 20:23] VITALS: BP 122/55
[2017-02-02 01:21] VITALS: BP 123/55
--- NOTE | 2017-02-02 03:30 | NUR ---
ASSESSMENT COMPLETE, SEE FLOWSHEET, PT SLEEPING, BED IS LOW, SRX2, CALL LIGHT IN REACH, WILL CONTINUE PLAN OF CARE
[2017-02-02 04:48] VITALS: BP 119/48
[2017-02-02 06:08] LABS: BASOPHILS 0 % (0-2); EOSINOPHILS 0 % (0-7); HEMATOCRIT 41.1 % (36.0-48.0); HEMOGLOBIN 13.5 g/dL (12-16); IMMATURE GRANULOCYTES 0.3 % (0-5); LYMPHOCYTES 9.1 % (15-50); MCH 30.8 pg (26.0-34.0); MCHC 32.8 g/dL (31.0-37.0); MCV 93.8 fL (80.0-100.0); MEAN PLATELET VOLUME 11.2 fL (7.4-10.4); MONOCYTES 4.7 % (2-11); NEUTROPHILS 85.9 % (40-80); RBC 4.38 10x6/uL (4.00-5.40); WBC 10.7 10x3/uL (4.8-10.8)
[2017-02-02 06:17] LABS: PLATELET COUNT 278 10x3/uL (130-400)
[2017-02-02 06:40] LABS: CALCIUM 9.1 mg/dL (8.5-10.1); CARBON DIOXIDE 32.7 mmol/L (21.0-32.0); CHLORIDE - SERUM 103 mmol/L (98-107); CREATININE - SERUM 0.8 mg/dL (0.6-1.3); GLUCOSE 133 mg/dL (74-106); POTASSIUM - SERUM 3.9 mmol/L (3.5-5.1); PRO BNP 601 pg/mL (0-125); SODIUM 141 mmol/L (136-145); eGFR NON AFRICAN AMERICAN 76 mL/min (90-120)
[2017-02-02 06:54] LABS: CALC OSMOLALITY 294 mosm/kg (275-300)
[2017-02-02 06:55] LABS: UREA NITROGEN 45 mg/dL (7-18)
--- NOTE | 2017-02-02 07:21 | NUR ---
AM ROUNDING- RECEIVED REPORT FROM SKILLED NURSING FACILITY COUNSELOR NURSE DIANE. PT IS CURRENTLY LAYING IN BED ON RIGHT SIDE WITH EYES CLOSED RESTING. ON 02 AT 3L VIA NC. ON MONITOR SHOWING SB, HR 56. IV SEEN TO RIGHT HAND THAT IS CURRENTLY SALINE LOCKED. NO NEED AT THIS CURRENT TIME. WILL CONTINUE TO MONITOR AND CONTINUE WITH PLAN OF CARE.
[2017-02-02 08:00] VITALS: BP 118/63
--- NOTE | 2017-02-02 08:17 | CN ---
PATIENT NAME:ESTEFANY HERZOG MEDICAL RECORD: [id number] : 54 LOCATION:[facility] D.2103 ADMIT DATE: 01/31/17 ACCOUNT: [id number] CONSULTING PHYSICIAN: DEMIAN SOTELO MD REFERRING PHYSICIAN: RHIANNON MORALES MD DATE OF CONSULTATION: 02/01/2017 Cardiology Consultation HISTORY OF PRESENT ILLNESS: Estefany Herzog is a 67-year-old lady with a history of severe obstructive pulmonary disease, O2 dependent at home on 3 liters and 2-3 day history of progressive dyspnea on exertion to the point of anne marie marked dyspnea at rest. She reports audible wheezing. LV function has been normal in the past. Her baseline BNP tends to run in 500 range. We are asked to see her considering her cardiovascular status. PAST MEDICAL HISTORY: Includes: 1. History of coronary artery disease as described above. 2. Severe obstructive pulmonary disease. 3. Atrial fibrillation. 4. Hypertension. 5. Migraine headaches. 6. Gastroesophageal reflux disease. ALLERGIES: CODEINE AND CECLOR. SOCIAL HISTORY: Lives at home, is able to take care of her ADLs on a regular basis. MEDICATIONS: Typically include: 1. Flexeril 10 mg p.o. t.i.d. 2. Proventil 2.5 q.6 hours. 3. Plavix 75 every day. 4. Sotolol 120 b.i.d. 5. Lisinopril 20 every day. 6. Imitrex as needed. 7. Aspirin 81 every day. 8. Lasix 20 every day. REVIEW OF SYSTEMS: The patient reports easy bruising but reports no swollen glands. The patient reports no fever, no night sweats, no significant weight gain, no significant weight loss. No significant exercise tolerance. The patient reports no dry eyes, no irritation, no vision change. Patient reports no difficulty hearing and no ear pain. Patient reports no frequent nose bleeds or nose and sinus problems. Patient reports on arm pain on exertion. No shortness of breath while lying down. No history of heart murmur. Patient reports no cough, no wheezing or coughing up blood. Patient reports no abdominal pain, no vomiting. Normal appetite. No diarrhea and not vomiting blood. No nausea and no constipation. Patient reports no incontinence. No difficulty urinating. No hematuria. No increased frequency. Patient reports no muscle aches. No weakness, no arthralgias, no back pain. No swelling of the extremities. Patient reports no abnormal mole, no jaundice, no rashes. Reports no loss of consciousness. No weakness and no numbness. No seizures, dizziness, or headaches. The patient reports no depression, no sleep disturbance, feeling safe in a relationship and no alcohol abuse. Patient reports on fatigue. CONSULT REPORT [id number] ESTEFANY HERZOG Reports no runny nose or sinus pressure. No itching, no hives, and no frequent sneezing. PHYSICAL EXAMINATION: GENERAL: Somewhat chronically ill-appearing female, mildly distressed. VITAL SIGNS: Blood pressure 126/66, pulse currently 70 and regular. HEENT: Normocephalic, atraumatic. NECK: No JVD or bruit. HEART: Distant, but regular. No obvious gallop. LUNGS: Prolonged expiratory phase with inspiratory and expiratory wheezes. ABDOMEN: Soft, nontender. EXTREMITIES: Pulses are 1+. There is trace edema. IMPRESSION: Suspect more of COPD exacerbation at present. LV function has been normal in the past. She is having small burst of atrial fibrillation. We will give low-dose digoxin. Hopefully, we can taper off this as her lung issues improve and leave on sotalol only. Further recommendations based on the above. TRANSINT:[id number] Voice Confirmation ID: [id number] DOCUMENT ID: [id number] DEMIAN SOTELO MD at 0817 CC: [id number] DICTATION DATE: 02/01/17 0858 GENERAL COUNSELOR: 02/01/17 1216 [facility] IN [place] [id number] [place] [address]
[2017-02-02 12:00] VITALS: BP 124/58
[2017-02-02 16:00] VITALS: BP 124/50
--- NOTE | 2017-02-02 17:50 | NUR ---
PT JUST HAD SHOWER AND IS NOW SITTING UP IN BED. NO NEED AT THIS CURRENT TIME. WILL CONTINUE TO MONITOR.
--- NOTE | 2017-02-02 18:24 | NUR ---
PT IS CURRENTLY SITTING UP IN BED WITH EYES OPEN RESTING. PT DENIES ANY NEED AT THIS TIME. WILL CONTINUE TO MONITOR AND CONTINUE WITH PLAN OF CARE.
--- NOTE | 2017-02-02 19:34 | NUR ---
RECEIVED REPORT, WILL ASSUME CARE OF PT, PT SITTING UP IN BED, WATCHING TV, DENIES ANY NEEDS, BED IS LOW, SRX2, CALL LIGHT IN REACH, WILL CONTINUE PLAN OF CARE
[2017-02-02 20:11] VITALS: BP 112/47
[2017-02-03] VITALS (8 sets, daily range): BP systolic 102–118; BP diastolic 49–76
--- NOTE | 2017-02-03 00:56 | NUR ---
ASSESSMENT COMPLETE, SEE FLOWSHEET, PT AWAKE, DENIES ANY NEEDS, BED IS LOW, SRX2, CALL LIGHT IN REACH, WILL CONTINUE PLAN OF CARE
[2017-02-03 05:17] LABS: BASOPHILS 0 % (0-2); EOSINOPHILS 0 % (0-7); HEMOGLOBIN 13.9 g/dL (12-16); IMMATURE GRANULOCYTES 0.3 % (0-5); LYMPHOCYTES 6.4 % (15-50); MCH 30.3 pg (26.0-34.0); MCHC 32.3 g/dL (31.0-37.0); MCV 93.9 fL (80.0-100.0); MEAN PLATELET VOLUME 11.1 fL (7.4-10.4); MONOCYTES 6.2 % (2-11); NEUTROPHILS 87.1 % (40-80); PLATELET COUNT 268 10x3/uL (130-400); RBC 4.58 10x6/uL (4.00-5.40); WBC 11.4 10x3/uL (4.8-10.8)
[2017-02-03 05:40] LABS: ANION GAP 10.7 mmol/L (8-16); CALCIUM 9.2 mg/dL (8.5-10.1); CARBON DIOXIDE 31.2 mmol/L (21.0-32.0); CREATININE - SERUM 0.9 mg/dL (0.6-1.3); POTASSIUM - SERUM 3.9 mmol/L (3.5-5.1)
--- NOTE | 2017-02-03 07:25 | NUR ---
AM ROUNDING- RECEIVED REPORT FROM ENVELOPE FOLDER NURSE DIANE. PT IS CURRENLTY SITTING UP IN BED WITH EYES OPEN RESTING. ON 02 AT 3L VIA NC. ON MONITOR SHOWING SR, HR 61. IV SEEN TO RIGHT HAND THAT IS CURRENTLY SALINE LOCKED. NO NEED AT THIS CURRENT TIME. WILL CONTINUE TO MONITOR AND CONTINUE WITH PLAN OF CARE.
[2017-02-03 08:19] LABS: IMMUNOGLOBULIN E 210 IU/mL (0-100)
[2017-02-03 09:16] LABS: IMMUNOGLOBULIN A 103 mg/dL (87-352); IMMUNOGLOBULIN G 773 mg/dL (700-1600)
--- NOTE | 2017-02-03 09:49 | NUR ---
AM MEDICATIONS GIVEN AND SHIFT ASSESSMENT DONE. PT IS CURRENTLY SITTING UP ON BEDSIDE COMMODE. INSTRUCTED PT TO USE CALL LIGHT WHEN FINISHED SO STAFF CAN ASSIST PT BACK TO BED. WILL CONTINUE TO MONITOR.
--- NOTE | 2017-02-03 12:06 | NUR ---
PT STATES VERY NAUSEA. PER PRN ORDER GAVE ANTI NAUSEA MED. PT STATES WOULD LIKE TO REST NOW. PT BED IN LOW POT. RAILS UP TIMES 2. CALL LIGHT WITH IN REACH.
--- NOTE | 2017-02-03 15:57 | NUR ---
PT SLEEPING WELL, EASILY AWAKEN. BED IN LOW POSTION. BED RAILS UP TIMES 2. CALL LIGHT WITH IN REACH. CONT TO MONITOR.
--- NOTE | 2017-02-03 18:15 | NUR ---
PT IS CURRENTLY LAYING IN BED ON RIGHT SIDE WITH EYES CLOSED RESTING. GUEST IS AT BEDSIDE. NO NEED AT THIS CURRENT TIME. WILL CONTINUE TO MONITOR AND CONTINUE WITH PLAN OF CARE.
--- NOTE | 2017-02-03 23:45 | NUR ---
PATIENT SITTING UP IN BED, REPORTS DIFFICULTY BREATHING. SUCCESSFUL IV START ON HER LEFT FOREARM. ANTIBIOTICS STARTED THAT WERE ORDERED. IV THAT WAS IN HER LEFT HAND WAS HURTING, AND UNABLE TO FLUSH . WILL DC. BED LOW, CALL LIGHT IN REACH.
[2017-02-04 00:48] VITALS: BP 96/52
--- NOTE | 2017-02-04 03:16 | NUR ---
PT IN BED RESTING QUIETLY. BREATHING EVEN AND UNLABORED. BED IN LOW POSITION, CALL LIGHT WITHIN REACH. WILL CTM.
[2017-02-04 05:25] VITALS: BP 103/51
[2017-02-04 06:11] LABS: BASOPHILS 0.1 % (0-2); EOSINOPHILS 0 % (0-7); HEMATOCRIT 42.1 % (36.0-48.0); HEMOGLOBIN 13.8 g/dL (12-16); IMMATURE GRANULOCYTES 0.4 % (0-5); LYMPHOCYTES 7.2 % (15-50); MCH 30.9 pg (26.0-34.0); MCHC 32.8 g/dL (31.0-37.0); MCV 94.2 fL (80.0-100.0); MEAN PLATELET VOLUME 10.7 fL (7.4-10.4); MONOCYTES 4.8 % (2-11); NEUTROPHILS 87.5 % (40-80); RBC 4.47 10x6/uL (4.00-5.40); RDW 13.1 % (11.5-14.5); WBC 9.5 10x3/uL (4.8-10.8)
[2017-02-04 06:17] LABS: CALCIUM 8.8 mg/dL (8.5-10.1); CHLORIDE - SERUM 102 mmol/L (98-107); CREATININE - SERUM 0.8 mg/dL (0.6-1.3); SODIUM 139 mmol/L (136-145); UREA NITROGEN 46 mg/dL (7-18); eGFR NON AFRICAN AMERICAN 76 mL/min (90-120)
[2017-02-04 06:27] LABS: PLATELET COUNT 199 10x3/uL (130-400)
[2017-02-04 06:28] LABS: CALC OSMOLALITY 289 mosm/kg (275-300); GLUCOSE 107 mg/dL (74-106); POTASSIUM - SERUM 4.9 mmol/L (3.5-5.1)
--- NOTE | 2017-02-04 07:51 | NUR ---
AM ROUNDS - PT IN BED AND AWAKE AT THIS TIME. 3L O2 VIA NC. MONITOR SHOWING SR, HR 90. LEFT FA, AND RIGHT HAND, SL. STAND BY ASSIST. EP, K+ 4.9. A&O. BED AT LOWEST POSITION. CALL PAPPAS IN USE/REACH. SIDE RAILS UP X2. WILL CONTINUE TO MONITOR
[2017-02-04 08:09] VITALS: BP 133/64
--- NOTE | 2017-02-04 12:24 | NUR ---
Nutrition follow-up: Diet: Low sodium mechanical soft with gravy on meat/thin liquids PO intake 75-100% of meals Labs reviewed +BM Wt: 132# PO intake good at this time RDN following.
[2017-02-04 12:54] VITALS: BP 105/48
[2017-02-04 15:59] VITALS: BP 94/47
--- NOTE | 2017-02-04 16:41 | NUR ---
PT IN BED AT THIS TIME WITH NO NEEDS. WILL CONTINUE TO MONITOR
--- NOTE | 2017-02-04 16:43 | NUR ---
Rehab Note- Acute Rehab Prescreen order received. Will visit with the patient about acute rehab d/t the patient is noted to have been refusing Physical therapy & the patient will be required by Medicare guidelines to participate in 3hrs/day of therapy. Will follow at this time. Thank you for this referral! Erica Pascual RN Clincial Liaison, [facility] Rehab
[2017-02-04 22:15] VITALS: BP 102/53
[2017-02-05 04:00] VITALS: BP 149/80
--- NOTE | 2017-02-05 04:39 | NUR ---
BUILDING MAINTENANCE ENGINEER AT BEDSIDE TO OBTAIN VITALS, CALL LIGHT IN REACH. WILL CONTINUE WITH PLAN OF CARE.
[2017-02-05 05:59] LABS: BASOPHILS 0.2 % (0-2); EOSINOPHILS 0 % (0-7); HEMATOCRIT 42.6 % (36.0-48.0); HEMOGLOBIN 13.8 g/dL (12-16); IMMATURE GRANULOCYTES 0.3 % (0-5); LYMPHOCYTES 9.8 % (15-50); MCH 30.6 pg (26.0-34.0); MCHC 32.4 g/dL (31.0-37.0); MCV 94.5 fL (80.0-100.0); MEAN PLATELET VOLUME 10.5 fL (7.4-10.4); MONOCYTES 3.1 % (2-11); NEUTROPHILS 86.6 % (40-80); RBC 4.51 10x6/uL (4.00-5.40); RDW 13.2 % (11.5-14.5); WBC 8.9 10x3/uL (4.8-10.8)
[2017-02-05 06:07] LABS: PLATELET COUNT 269 10x3/uL (130-400)
--- NOTE | 2017-02-05 06:26 | NUR ---
DC IV IN RIGHT HAND BECAUSE COULD NO LONGER FLUSH WITHOUT C/O PAIN. CATHETER INTACT, PATIENT TOLERATED.
[2017-02-05 06:38] LABS: CARBON DIOXIDE 28.1 mmol/L (21.0-32.0); POTASSIUM - SERUM 5.1 mmol/L (3.5-5.1)
--- NOTE | 2017-02-05 07:50 | NUR ---
RECEIVED REPORT ON PATIENT. MORNING ROUNDS MADE. PATIENT RESTING IN BED, EYES CLOSED. CHEST RISES AND FALLS EQUALLY BILAT. BED IN LOWEST POSITION, CALL LIGHT IN REACH, SR UP X 2. CPOC.
[2017-02-05 08:46] VITALS: BP 115/57
[2017-02-05 12:07] VITALS: BP 114/57
[2017-02-05] MEDS ORDERED: BROVANA15 MCG/2 M INH (12:44)
[2017-02-05] MEDS ORDERED: DOXYCYCLINE HY100 M2 PO (12:44)
[2017-02-05] MEDS ORDERED: LEVAQUIN750 MG PO (12:44)
[2017-02-05] MEDS ORDERED: XOPENEX 0.0.63 MG/3 UPD ×2 (12:45)
[2017-02-05] MEDS ORDERED: ATROVENT 0.02%2.5 ML UPD (12:45)
[2017-02-05] MEDS ORDERED: SINGULAIR10 MG PO (12:46)
[2017-02-05] MEDS ORDERED: DALIRESP500 MCG PO (12:46)
[2017-02-05] MEDS ORDERED: MUCINEX DM ER1 EAC1 PO (12:46)
[2017-02-05] MEDS ORDERED: BENZONATATE200 MG PO (12:46)
[2017-02-05] MEDS ORDERED: FLUTICASONE PRO16 GM NASAL (12:47)
[2017-02-05] MEDS ORDERED: MIRALAX17 GM PO (12:47)
[2017-02-05] MEDS ORDERED: FLORAJEN3 CAPS460 MG PO (12:47)
[2017-02-05] MEDS ORDERED: PREDNISONE10 MG PO (12:47)
--- NOTE | 2017-02-05 16:49 | NUR ---
Rehab Note- To be dmitted to [facility] Acute Rehab today. Thank you for this referral! Erica Pascual RN Clinical Liaison, [facility] Rehab
--- NOTE | 2017-02-05 17:21 | NUR ---
Patient Name: KATHARINA RAHMAN Admission Status: ER Accout number: [id number] Admission Date: 01-31-2017 : 1950 Admission Diagnosis:SHORTNESS OF BREATH Attending: RHIANNON MORALES Current LOS: 5 Anticipated DC Date: 02-05-2017 Planned Disposition: Inpatient Rehab Primary Insurance: MEDICARE A & B PLANNED EXTERNAL PROVIDER: [facility] IN[facility]IENT [facility] Discharge Planning Comments: * Is the patient Alert and Oriented? Yes 0 * How many steps to enter\exit or inside your home? 3 0 * PCP DR. PLEITEZ 0 * [facility]acy [facility] 0 * Preadmission Environment Home with Family 0 * ADLs Independent 0 * Equipment Cane Nebulizer Oxygen 0 * Other Equipment HOME AND PORTABLE OXYGEN [facility] - MEDICAL EQUIPMENT PROVIDER 0 * List name and contact numbers for known caregivers / representatives who currently or will assist patient after discharge: --POLLO AGUILAR, SON, 0 * Community resources currently utilized None 0 * Please name any agencies selected above. NONE 0 * Additional services required to return to the preadmission environment? Yes * Can the patient safely return to the preadmission environment? Yes 0 * Has this patient been hospitalized within the prior 30 days at any hospital? No 0 CM RECEIVED ORDER FOR INPATIENT REHAB, MET WITH PT IN ROOM TO DISCUSS DISCHARGE PLANNING AND NEEDS. PT REPORTS LIVING AT HOME INDEPENDENTLY, IN THE HOME IS PT'S ADULT SON. PT HAS ALL NEEDED MEDICAL EQUIPMENT FROM [facility]; PT HAS NO OUTSIDE SERVICES ASSISTING IN THE HOME. CM DISCUSSED AVAILABILITY OF HOME HEALTH, REHAB SERVICES AND MEDICAL EQUIPMENT, CM DISCUSSED AVAILABILITY OF INPATIENT REHAB, PROVIDERS AND LOCATIONS. PT WOULD LIKE TO STAY AT [facility] FOR INPATIENT REHAB. IMPORTANT MESSAGE FROM MEDICARE PROVIDED AND EXPLAINED. CM SPOKE TO KEL[facility] OF INPATIENT REHAB, THEY WILL ACCEPT PT TO ROOM 1113-A. PT NOTIFIED, IN AGREEMENT WITH DISCHARGE TO INPATIENT REHAB. BEDSIDE NURSE NOTIFIED. Creative Services Producer: Yuri Nickerson
--- NOTE | 2017-02-05 18:12 | NUR ---
DISCHARGE PAPERWORK GONE OVER WITH PATIENT AND FAMILY MEMBERS. ALL QUESTIONS ANSWERED. IV LEFT INTACT R/T PATIENT WILL RECEIVE IV ANTIBIOTICS IN REHAB. REPORT GIVEN TO FELIX. TRANSPORTED PATIENT TO REHAB VIA WHEELCHAIR.
== END 2017-02-05 18:14 | disposition home or self-care (01) | DRG 177 ==
LOC: D.ER 03:50 → D.M2 06:04
PROVIDERS: Emergency Medicine; Internal Medicine Pulmonary Disease; ADMIT Family Medicine
DX: J15.6 Pneumonia due to other Gram-negative bacteria (principal); J96.21 Acute and chronic respiratory failure with hypoxia; J96.22 Acute and chronic respiratory failure with hypercapnia; I50.31 Acute diastolic (congestive) heart failure; J44.1 Chronic obstructive pulmonary disease with (acute) exacerbation; J98.11 Atelectasis; J44.0 Chronic obstructive pulmonary disease with (acute) lower respiratory infection; M41.9 Scoliosis, unspecified; K59.00 Constipation, unspecified; J30.9 Allergic rhinitis, unspecified; R04.0 Epistaxis; G43.909 Migraine, unspecified, not intractable, without status migrainosus; I25.10 Atherosclerotic heart disease of native coronary artery without angina pectoris; I48.91 Unspecified atrial fibrillation; K21.9 Gastro-esophageal reflux disease without esophagitis; Z99.81 Dependence on supplemental oxygen; I11.0 Hypertensive heart disease with heart failure; J13 Pneumonia due to Streptococcus pneumoniae

== ENCOUNTER 2017-02-05 16:57 | Inpatient (IN) | payer MEDICARE ==
[~2017-02-05] VITALS: Ht 165.1 cm; Wt 46.7 kg
[~2017-02-05 16:57] MED LIST changes: +ATROVENT 0.02%2.5 ML UPD; +DALIRESP500 MCG PO; +DOXYCYCLINE HY100 M2 PO; +FLORAJEN3 CAPS460 MG PO; +FLUTICASONE PRO16 GM NASAL; +FUROSEMIDE20 MG PO; +LEVAQUIN750 MG PO; +MUCINEX DM ER1 EAC1 PO; +PRINIVIL20 MG PO; +SINGULAIR10 MG PO; +XOPENEX 0.0.63 MG/3 UPD
[2017-02-05 22:51] VITALS: BP 106/40; BMI 17.1
[2017-02-06 07:37] LABS: BASOPHILS 0.2 % (0-2); EOSINOPHILS 0.1 % (0-7); HEMATOCRIT 41.9 % (36.0-48.0); HEMOGLOBIN 13.5 g/dL (12-16); IMMATURE GRANULOCYTES 0.6 % (0-5); LYMPHOCYTES 21.8 % (15-50); MCH 29.9 pg (26.0-34.0); MCHC 32.2 g/dL (31.0-37.0); MCV 92.9 fL (80.0-100.0); MEAN PLATELET VOLUME 10.9 fL (7.4-10.4); NEUTROPHILS 66.3 % (40-80); PLATELET COUNT 244 10x3/uL (130-400); RBC 4.51 10x6/uL (4.00-5.40); WBC 10.5 10x3/uL (4.8-10.8)
[2017-02-06 07:48] LABS: ANION GAP 9.5 mmol/L (8-16); CALCIUM 8.9 mg/dL (8.5-10.1); CARBON DIOXIDE 29.7 mmol/L (21.0-32.0); POTASSIUM - SERUM 5.2 mmol/L (3.5-5.1)
[2017-02-06 11:06] VITALS: Ht 165.1 cm; Wt 46.7 kg
[2017-02-06 21:39] VITALS: BP 106/49
[2017-02-07 08:00] VITALS: BP 97/51
[2017-02-07 20:00] VITALS: BP 91/51
[2017-02-08 08:38] VITALS: BP 110/50
[2017-02-08 19:00] VITALS: BP 88/68
[2017-02-09 07:49] LABS: CALC OSMOLALITY 280 mosm/kg (275-300); CALCIUM 8.4 mg/dL (8.5-10.1); CARBON DIOXIDE 29.7 mmol/L (21.0-32.0); CHLORIDE - SERUM 104 mmol/L (98-107); CREATININE - SERUM 0.7 mg/dL (0.6-1.3); GLUCOSE 85 mg/dL (74-106); POTASSIUM - SERUM 4.3 mmol/L (3.5-5.1); SODIUM 137 mmol/L (136-145); UREA NITROGEN 34 mg/dL (7-18); eGFR NON AFRICAN AMERICAN 89 mL/min (90-120)
[2017-02-09 07:56] LABS: BASOPHILS 0 % (0-2); EOSINOPHILS 1.1 % (0-7); HEMATOCRIT 36.9 % (36.0-48.0); HEMOGLOBIN 12.2 g/dL (12-16); LYMPHOCYTES 30.5 % (15-50); MCH 30.2 pg (26.0-34.0); MCHC 33.1 g/dL (31.0-37.0); MCV 91.3 fL (80.0-100.0); MEAN PLATELET VOLUME 11.8 fL (7.4-10.4); MONOCYTES 10.4 % (2-11); RBC 4.04 10x6/uL (4.00-5.40); RDW 12.6 % (11.5-14.5); WBC 11.4 10x3/uL (4.8-10.8)
[2017-02-09 07:57] LABS: PLATELET COUNT 158 10x3/uL (130-400)
[2017-02-09 08:52] VITALS: BP 107/39
[2017-02-09 22:19] VITALS: BP 103/55
[2017-02-10 08:01] VITALS: BP 88/41
[2017-02-10 09:07] VITALS: BP 125/52
--- NOTE | 2017-02-10 13:13 | RHP ---
PATIENT: KATHARINA RAHMAN MEDICAL RECORD: [id number] ACCOUNT: [id number] LOCATION:[facility]1113 : [birth year] ADMISSION DATE: 02/05/17 REHABILITATION HISTORY AND PHYSICAL EXAMINATION POST ADMISSION PHYSICIAN EXAMINATION DATE OF ADMISSION: 02/05/2017. ADMITTING DIAGNOSIS: Acute exacerbation of chronic obstructive pulmonary disease. HISTORY OF PRESENT ILLNESS: The patient admitted to the inpatient rehab for pulmonary/acute exacerbation of COPD. She is a 67-year-old female patient with past medical history of COPD, prior tobacco use, coronary artery disease, chronic back pain, scoliosis, and compression fracture, presented with worsening dyspnea on exertion. She has a bronchitic type cough, dyspnea, minimal phlegm with poor appetite when presented to the ED. She was admitted to the hospital on 01/31/2017 with CHF and COPD exacerbation. She is O2 dependent at home with 3 liters. She has been followed by cardiology and also pulmonary during her acute stay. She was independent with her ADLs and moderately independent with her mobility with use of a cane prior to this acute hospitalization. She is currently set up for moderate to max assist. She will definitely need inpatient rehab to get back to her prior level of functioning. COMORBIDITIES: Include dysphagia, COPD, CHF, chronic back pain, probable community-acquired pneumonia, coronary artery disease with angina, [id number] hypoxic and hypercapnic respiratory failure, severe COPD with exacerbation, cough, allergic rhinitis, gastroesophageal reflux disease, hypertension, scoliosis, headaches, pharyngitis, and atrial fib. PAST MEDICAL HISTORY: Significant for coronary artery disease, COPD, atrial fib, hypertension, migraine headaches, gastroesophageal reflux, scoliosis, poor circulation, chronic back pain, compression fracture, tobacco use, constipation, and broken tailbone. PAST SURGICAL HISTORY: Includes appendectomy, tonsillectomy, adenoidectomy, hysterectomy, and surgery on her arm. ALLERGIES: CODEINE AND CEPHALOSPORINS. CURRENT MEDICATIONS: Include Daliresp 500 mcg daily, prednisone 40 mg daily, polyethylene glycol 17 grams in 8 ounces of water daily, Protonix 20 mg daily, lisinopril 20 mg daily, Levaquin 750 mg for a total of 5 doses, furosemide 20 mg daily, Flonase nasal spray 2 sprays daily, doxycycline 100 mg daily for a total of 10 doses, Plavix 75 mg daily, chewable aspirin 81 mg daily, Brovana 15 mcg b.i.d., Imitrex 50 mg q.2 hours p.r.n., sotalol 120 mg b.i.d., Singulair 10 mg q.h.s., Xopenex 0.63 mg as needed. She is on Atrovent 0.5 mg q.4 hours. She is on Motrin 800 mg t.i.d. p.r.n., Mucinex 600/30 ER 2 tabs b.i.d., Flexeril 10 mg t.i.d., Pulmicort 0.5 mg b.i.d., Tessalon Perles 200 mg t.i.d., and MiraLax 17 grams in 8 ounces of water daily. HABITS: No current alcohol or tobacco use. FAMILY HISTORY: Noncontributory. HISTORY AND PHYSICAL [id number] KATHARINA RAHMAN SOCIAL HISTORY: The patient hopes to return back home and get back to her prior level of functioning. REVIEW OF SYSTEMS: GENERAL: Does complain of weakness. HEENT: Does complain of cold, cough, or congestion. CARDIOVASCULAR: Denies any chest pain. LUNGS: Does complain of shortness of breath. PHYSICAL EXAMINATION: VITAL SIGNS: Stable, afebrile. GENERAL: A well-developed female in no acute distress, alert upon exam. HEENT: Normocephalic and atraumatic. Mucosa moist. NECK: Supple. No lymphadenopathy. LUNGS: Coarse breath sounds bilaterally. CARDIOVASCULAR: Irregular rate and rhythm. ABDOMEN: Benign. EXTREMITIES: No clubbing, cyanosis or edema. NEUROLOGIC: Seems intact. LABORATORY DATA: Her white count is 10.5, H&H of 13 and 41, and platelet count was noted to be 244. Her sodium is 138, potassium 5.2, BUN and creatinine of 55 and 1.0, and blood sugar was noted to be 93. ASSESSMENT: This is a 67-year-old female patient admitted to the rehab with a working diagnosis of acute exacerbation of chronic obstructive pulmonary disease. The patient has potential to make improvement. We instituted the following multidisciplinary therapies including to, but not limited to physical, occupational, respiratory, speech, nutritional services, prosthetics and orthotics. Given her complex condition and risk for more complications, rehabilitation services cannot be provided at a low level of care such as a fpc facility. PLAN: 1. Admit to [facility] rehab for intensive inpatient therapy to include the following disciplines: A. Physical therapy to improve gait, all transfer skills and bed mobility to a modified independent level. B. Occupational therapy to improve activities of daily living to a modified independent level. C. Case management to assist with discharge planning and placement options. D. Nutrition to assist with nutritional needs. E. Rehabilitation nursing to assist in monitoring the patient's underlying medical conditions and to assist with any type of bowel or bladder management. 2. The patient's current medication and medical care will be continued. 3. The patient will be placed on standard fall precautions. 4. The patient's estimated length of stay is approximately 7-10 days. 5. We will discuss this patient during care team staff meeting this week. We will make sure that we taper her prednisone as directed and we will follow up chest x-ray as needed. TRANSINT:[id number] Voice Confirmation ID: [id number] DOCUMENT ID: [id number] SADE notes whether there has been none or any medical/functional HISTORY AND PHYSICAL [id number] KATHARINA RAHMAN change since admission: - No change since pre-admission screen. SADE attests patient continues to be appropriate for IRF: - Continues to be appropriate. LORENA BIRD MD at 1313 CC: [id number] DICTATION DATE: 02/06/17 0836 W[employer] DEHYDRATOR OPERATOR: 02/06/17 1018 ADM IN [facility] [address] [place] [address]
[2017-02-10 21:26] VITALS: BP 98/56
[2017-02-11 07:57] VITALS: BP 86/40
[2017-02-12 08:12] VITALS: BP 126/51
[2017-02-12] MEDS ORDERED: HYDROCODONE-APA1 TAB PO (08:50)
[2017-02-12 19:55] VITALS: BP 113/69
[2017-02-13 08:37] VITALS: BP 90/46
== END 2017-02-13 15:42 | disposition home or self-care (01) | DRG 190 ==
LOC: D.REHAB 16:57
PROVIDERS: ADMIT Emergency Medicine
DX: J44.1 Chronic obstructive pulmonary disease with (acute) exacerbation (principal); J96.21 Acute and chronic respiratory failure with hypoxia; J96.22 Acute and chronic respiratory failure with hypercapnia; J18.9 Pneumonia, unspecified organism; R13.11 Dysphagia, oral phase; I11.0 Hypertensive heart disease with heart failure; I50.9 Heart failure, unspecified; I25.119 Atherosclerotic heart disease of native coronary artery with unspecified angina pectoris; K21.9 Gastro-esophageal reflux disease without esophagitis; I48.91 Unspecified atrial fibrillation; M41.9 Scoliosis, unspecified; J30.9 Allergic rhinitis, unspecified; R51 Headache; J02.9 Acute pharyngitis, unspecified

== ENCOUNTER 2017-02-16 12:17 | Inpatient (IN) | payer MEDICARE ==
[~2017-02-16] VITALS: Ht 165.1 cm; Wt 66.5 kg
--- NOTE | ~2017-02-16 | OP ---
PATIENT NAME: KATHARINA RAHMAN MEDICAL RECORD: [id number] :54 LOCATION:[facility] D.2303 ADMISSION DATE:02/16/17 SURGEON: JOSE M HADRIN MD DATE OF OPERATION: 04/02/2017 DATE OF OPERATION: 04/02/2017 PREOPERATIVE DIAGNOSES: 1. Acute respiratory failure. 2. Pneumonia. 3. Congestive heart failure, undifferentiated. 4. Coronary artery disease. 5. Chronic obstructive pulmonary disease. POSTOPERATIVE DIAGNOSES: 1. Acute respiratory failure. 2. Pneumonia. 3. Congestive heart failure, undifferentiated. 4. Coronary artery disease. 5. Chronic obstructive pulmonary disease. PROCEDURE: Percutaneous 8-Gibraltarian tracheostomy placement. SURGEON: Jose M Hardin MD REPORT OF PROCEDURE: A bronchoscope was advanced through the patient's indwelling endotracheal tube. After we cleared out secretions, then we pulled the indwelling endotracheal tube back until we could see the top part of the patient's trachea. A longitudinal incision was made in the midline of the neck overlying the trachea after it had been prepped and draped. Palpation of the area found the space between the second and third tracheal rings. An Angiocath needle was inserted and a guidewire was advanced with ease. This was seen under direct visualization. Over this, we placed a small dilator followed by the large Rhino dilator. We then placed 8-Gibraltarian tracheostomy tube over the wire and it rested in good position. At this point, the ET tube was removed. The new tracheostomy was sutured into place with 3-0 silks. A final bronchoscopy was performed through the endotracheal tube with removal of any secretions. There was no sign of any active bleeding at the conclusion of the case. COMPLICATIONS: None. CONDITION: Stable. ANESTHESIA: General endotracheal. BLOOD LOSS: 20 mL. TRANSINT:[id number] Voice Confirmation ID: [id number] DOCUMENT ID: [id number] OPERATIVE REPORT [id number] KATHARINA RAHMAN CHRISTIAN MD CC: [id number] DICTATION DATE: 04/02/17 1341 ASSISTANT CENTER DIRECTOR: 04/02/17 1447 ADM IN [id number] [place] [address]
--- NOTE | ~2017-02-16 | OP ---
PATIENT NAME: KATHARINA RAHMAN MEDICAL RECORD: [id number] :54 LOCATION:.[facility] D.2303 ADMISSION DATE:02/16/17 SURGEON: JOSE M HARDIN MD DATE OF OPERATION: 04/03/2017 PREOPERATIVE DIAGNOSES: 1. Respiratory failure on the ventilator. 2. Lsvlf-dg-pmghtnv lung disease. 3. COPD. 4. Congestive heart failure. 5. Atrial fibrillation. 6. Pneumonia. POSTOPERATIVE DIAGNOSES: 1. Respiratory failure on the ventilator. 2. Sksjx-mo-cbffmvo lung disease. 3. COPD. 4. Congestive heart failure. 5. Atrial fibrillation. 6. Pneumonia. PROCEDURE: PEG tube placement. SURGEON: Jose M Hardin MD REPORT OF PROCEDURE: The Olympus endoscope was advanced through the mouth and esophagus into the stomach. There was noted to be some findings of gastritis in the stomach. The stomach was insufflated and we were able to find an area on the body of the stomach to house her PEG tube. The abdomen was prepped and draped in sterile fashion. A total of 5 cc of 1% lidocaine was infused into the subcutaneous tissues. A small skin incision was then made with an 11 blade and the Angiocath needle was advanced through the abdominal wall into the gastric lumen. Wire was advanced through the lumen and this wire was grasped with an Endo snare. This was pulled out through the patient's mouth and esophagus and affixed to the PEG tube. The PEG tube and wire were pulled through the abdominal wall through the mouth and esophagus until it rested in good position at 4 cm at the skin. There was no sign of any bleeding at the conclusion of the case. The endoscope was advanced back into the gastric lumen and there was no sign of internal bleeding noted. At this point, the insufflation and the scope were removed. COMPLICATIONS: None. CONDITION: Stable. ANESTHESIA: General endotracheal. BLOOD LOSS: Minimal. Procedure done in the ICU at the bedside. TRANSINT:[id number] Voice Confirmation ID: [id number] DOCUMENT ID: [id number] OPERATIVE REPORT [id number] KATHARINA RAHMAN CHRISTIAN MD CC: [id number] DICTATION DATE: 04/03/17919 DYNAMITE PACKING MACHINE OPERATOR: 04/03/17 1052 ADM IN [id number] [place] [address]
--- NOTE | ~2017-02-16 | HP ---
PATIENT: KATHARINA RAHMAN MEDICAL RECORD: [id number] ACCOUNT: [id number] LOCATION:[address] : 54 ADMISSION DATE: 02/16/17 HISTORY AND PHYSICAL EXAMINATION HISTORY OF PRESENT ILLNESS: This 67-year-old white female was recently discharged from the hospital and came in to the Emergency Room upon day of admission with complaint of shortness of breath. The patient had done updraft treatments at home and was having increasing labored respirations. She was found to be in SVT and converted over to sinus tachycardia while being worked up by the ER physician appropriately. The patient is having increasing labored respirations and hypoxia and is admitted to the hospital and moved into the ICU for appropriate stabilization. PAST MEDICAL HISTORY: Significant for COPD, CHF, chronic back pain, recent pneumonia, coronary artery disease, respiratory failure, allergic rhinitis, GERD, hypertension, scoliosis, pharyngitis, and atrial fibrillation. PAST SURGICAL HISTORY: Includes appendectomy, tonsillectomy, adenoidectomy, hysterectomy and arm surgery. ALLERGIES: THE PATIENT IS ALLERGIC TO CEPHALOSPORINS AND CODEINE. MEDICATIONS: Listed in the MAR sheet. SOCIAL HISTORY: The patient does not smoke, drink alcohol at the present time. REVIEW OF SYSTEMS: Indicates no fever or chills. No chest pain. She does have shortness of breath, cough and congestion. No significant wheezing after her updraft treatment. No nausea, vomiting, diarrhea, or diaphoresis. PHYSICAL EXAMINATION: VITAL SIGNS: At time of exam vital signs as below. GENERAL: She is a well-developed 67-year-old pale white female in no acute respiratory distress, but is having increasing coughing episode. HEENT: Her pupils are equal, round, and reactive to light. Extraocular movements are intact. Oral cavity and oropharynx otherwise clear. NECK: No cervical or pharyngeal adenopathy. No nuchal rigidity. LUNGS: Coarse breath sounds bilaterally with wheezing in the bases. HEART: Irregular rate and rhythm with tachycardia. ABDOMEN: Soft, nontender, positive bowel sounds. No hepatosplenomegaly, no masses. EXTREMITIES: No cyanosis noted. She does have a 1+ radial pulse bilateral. No edema is noted. NEUROLOGIC: She is able to move all 4 extremities. ASSESSMENT: 1. Congestive heart failure. 2. Atrial fibrillation with rapid response rate. 3. Chronic obstructive pulmonary disease. 4. Hypertension. 5. Coronary artery disease. 6. Recent pneumonia. 7. Wheezing. HISTORY AND PHYSICAL [id number] KATHARINA RAHMAN PLAN: The patient was admitted to the ICU. We will stabilize her heart rate. Pulmonary consultation and cardiology consultation. Check laboratory appropriately. TRANSINT:[id number] Voice Confirmation ID: [id number] DOCUMENT ID: [id number] JEREMIAH RODRIGUEZ MD at 1421 CC: [id number] DICTATION DATE: 02/16/17 1350 MAIN ENTREE COOK AND CASHIER: 02/16/17 1534 ADM IN [facility] [address] [place] [address]
--- NOTE | ~2017-02-16 | EC ---
PATIENT:KATHARINA RAHMAN DATE OF SERVICE: 02/16/17 SEX: F MEDICAL RECORD: [id number] DATE OF : 54 LOCATION:[facility] D230 AGE OF PATIENT: 67 ADMISSION DATE: 02/16/17 REFERRING PHYSICIAN: INTERPRETING PHYSICIAN: RACHELL DUKES MD ECHOCARDIOGRAM REPORT ECHO CHARGES 4 ECHO COMPLETE CLINICAL DIAGNOSIS: RESP.FAILURE ECHOCARDIOGRAPHIC MEASUREMENTS (adult normal given) AC root (d.<3.7cm) 3.0 cm LV Septum d (<1.2 cm> 1.5 cm Valve Excursion 1.4 cm LV Septum (systole) 1.8 cm Left Atria (s.<4.0cm> 3.2 cm LVPW d(<1.2cm) 1.3 cm RV (d.<2.3cm) 2.2 cm LVPW (sytole) 1.9 cm LV diastole(<5.6CM) 4.9 cm MV E-F(>70mm/sec) cm LV systole 3.5 cm LVOT Diameter 1.6 cm MV exc.(>10mm) cm Est.ejection fraction (50-75%) % Pericardial Effusion N DOPPLER: LVIT cm/sec A 118 cm/sec E 79.0 cm/sec LA cm/sec RVSP 40.1 mmHg LVOT 108 cm/sec AOP1/2T m/s Asc. Ao 199 cm/sec RVOT 51.0 cm/sec RA cm/sec PA 114 cm/sec AV Gradient Peak 16.0 mmHg AV Mean 8.1 mmHg AV Area 1.0 cm MV Gradient Peak 6.7 mmHg MV Mean 2.2 mmHg MV Area cm COMMENTS: Mac Developer: Dk SHEPPARD Truck Rental Clerk: 3 Dr. Azar TAPE# PACS DATE OF SERVICE: 03/20/2017 ECHOCARDIOGRAM DATE OF SERVICE: 03/20/2017 FINDINGS: 1. Left ventricular chamber size is within normal limits. Left ventricular systolic function is normal. Overall ejection fraction is mildly depressed at 40% to 45%. ECHOCARDIOGRAM REPORT [id number] KATHARINA RAHMAN 2. Left atrium, right atrium, and right ventricular chamber sizes are within normal limits. 3. Valvular structures have normal structure and motion. 4. Doppler interrogation reveals mild aortic insufficiency, mild mitral regurgitation, mild tricuspid regurgitation, no other valvular insufficiency or stenosis. Pulmonary systolic pressure is estimated at 40 mmHg. 5. No evidence of pericardial effusion or left ventricular thrombus. TRANSINT:[id number] Voice Confirmation ID: [id number] DOCUMENT ID: [id number] RACHELL DUKES MD at 1759 CC: [id number] DICTATION DATE: 03/20/17 1350 ANIMAL SHELTER MANAGER: 03/20/17 1450 ADM IN [id number] [place] [address]
[2017-02-16 13:06] LABS: BASOPHILS 0.1 % (0-2); EOSINOPHILS 0.5 % (0-7); HEMATOCRIT 38.5 % (36.0-48.0); HEMOGLOBIN 12.7 g/dL (12-16); IMMATURE GRANULOCYTES 0.8 % (0-5); LYMPHOCYTES 12.3 % (15-50); MCH 30.9 pg (26.0-34.0); MCV 93.7 fL (80.0-100.0); MEAN PLATELET VOLUME 10.9 fL (7.4-10.4); MONOCYTES 5.7 % (2-11); NEUTROPHILS 80.6 % (40-80); PLATELET COUNT 175 10x3/uL (130-400); RBC 4.11 10x6/uL (4.00-5.40); RDW 13.5 % (11.5-14.5); WBC 15.7 10x3/uL (4.8-10.8)
[2017-02-16 13:47] LABS: ALBUMIN 2.8 g/dL (3.4-5.0); ALKALINE PHOSPHATASE 61 U/L (46-116); ALT (SGPT) 19 U/L (10-68); BILIRUBIN - TOTAL 0.35 mg/dL (0.2-1.3); CALC OSMOLALITY 282 mosm/kg (275-300); CALCIUM 8.8 mg/dL (8.5-10.1); CARBON DIOXIDE 32.9 mmol/L (21.0-32.0); CHLORIDE - SERUM 104 mmol/L (98-107); CREATININE - SERUM 0.6 mg/dL (0.6-1.3); GLUCOSE 113 mg/dL (74-106); POTASSIUM - SERUM 3.3 mmol/L (3.5-5.1); PROTEIN - SERUM 5.7 g/dL (6.4-8.2); SODIUM 141 mmol/L (136-145); UREA NITROGEN 16 mg/dL (7-18); eGFR NON AFRICAN AMERICAN > 90 mL/min (90-120)
[2017-02-16 13:55] LABS: CREATINE KINASE 17 UL (21-215); MAGNESIUM - SERUM 1.6 mg/dL (1.8-2.4); PRO BNP 4696 pg/mL (0-125); TROPONIN-I 0.028 ng/mL (0.000-0.060)
[2017-02-16 17:41] VITALS: BP 122/64; BMI 23.8
[2017-02-16 20:00] VITALS: BP 80/50
[2017-02-17 01:36] LABS: APPEARANCE CLEAR (CLEAR); COLOR YELLOW (YELLOW)
[2017-02-17 01:37] LABS: BILIRUBIN NEGATIVE (NEGATIVE); GLUCOSE NEGATIVE (NEGATIVE); KETONE NEGATIVE (NEGATIVE); NITRITE NEGATIVE (NEGATIVE); PROTEIN NEGATIVE (NEGATIVE); UROBILINOGEN NORMAL (NORMAL)
[2017-02-17 02:30] VITALS: BP 93/39
[2017-02-17 05:52] VITALS: BP 100/58
[2017-02-17 07:55] VITALS: BP 134/61
[2017-02-17 11:52] VITALS: BP 104/53
[2017-02-17 13:50] VITALS: BMI 22.9
[2017-02-17 16:11] VITALS: BP 104/59
[2017-02-17 21:08] VITALS: BP 104/62
[2017-02-18 00:48] VITALS: BP 101/45
[2017-02-18 04:21] VITALS: BP 93/49
[2017-02-18 06:12] LABS: BASOPHILS 0.1 % (0-2); EOSINOPHILS 0 % (0-7); HEMOGLOBIN 10.2 g/dL (12-16); IMMATURE GRANULOCYTES 0.3 % (0-5); LYMPHOCYTES 5.8 % (15-50); MCH 30.7 pg (26.0-34.0); MCHC 33.2 g/dL (31.0-37.0); MCV 92.5 fL (80.0-100.0); MEAN PLATELET VOLUME 10.5 fL (7.4-10.4); MONOCYTES 3.3 % (2-11); NEUTROPHILS 90.5 % (40-80); RBC 3.32 10x6/uL (4.00-5.40); RDW 13.4 % (11.5-14.5)
[2017-02-18 06:13] LABS: HEMATOCRIT 30.7 % (36.0-48.0); PLATELET COUNT 105 10x3/uL (130-400); WBC 11.7 10x3/uL (4.8-10.8)
[2017-02-18 06:38] LABS: ALBUMIN 2.3 g/dL (3.4-5.0); ALKALINE PHOSPHATASE 46 U/L (46-116); ALT (SGPT) 20 U/L (10-68); BILIRUBIN - TOTAL 0.18 mg/dL (0.2-1.3); CALC OSMOLALITY 288 mosm/kg (275-300); CALCIUM 8.9 mg/dL (8.5-10.1); CARBON DIOXIDE 27.8 mmol/L (21.0-32.0); CHLORIDE - SERUM 106 mmol/L (98-107); CREATININE - SERUM 0.7 mg/dL (0.6-1.3); GLUCOSE 164 mg/dL (74-106); POTASSIUM - SERUM 3.1 mmol/L (3.5-5.1); PROTEIN - SERUM 5.4 g/dL (6.4-8.2); SODIUM 142 mmol/L (136-145); UREA NITROGEN 19 mg/dL (7-18); eGFR NON AFRICAN AMERICAN 89 mL/min (90-120)
[2017-02-18 07:57] VITALS: BP 103/49
[2017-02-18 11:45] VITALS: BP 118/92
[2017-02-18 16:00] VITALS: BP 101/46
[2017-02-18 22:39] VITALS: BP 116/59
[2017-02-19 03:54] VITALS: BP 113/64
[2017-02-19 06:35] LABS: ALBUMIN 2.1 g/dL (3.4-5.0); ALKALINE PHOSPHATASE 44 U/L (46-116); ALT (SGPT) 20 U/L (10-68); CALC OSMOLALITY 284 mosm/kg (275-300); CALCIUM 8.9 mg/dL (8.5-10.1); CARBON DIOXIDE 21.7 mmol/L (21.0-32.0); CHLORIDE - SERUM 107 mmol/L (98-107); GLUCOSE 130 mg/dL (74-106); PROTEIN - SERUM 5.1 g/dL (6.4-8.2); SODIUM 141 mmol/L (136-145); UREA NITROGEN 18 mg/dL (7-18)
[2017-02-19 06:36] LABS: CREATININE - SERUM 0.5 mg/dL (0.6-1.3); POTASSIUM - SERUM 4.2 mmol/L (3.5-5.1); eGFR NON AFRICAN AMERICAN > 90 mL/min (90-120)
[2017-02-19 06:38] LABS: BASOPHILS 0.4 % (0-2); EOSINOPHILS 0 % (0-7); HEMATOCRIT 31.8 % (36.0-48.0); HEMOGLOBIN 10.2 g/dL (12-16); IMMATURE GRANULOCYTES 0.5 % (0-5); LYMPHOCYTES 6.5 % (15-50); MCH 30.4 pg (26.0-34.0); MCHC 32.1 g/dL (31.0-37.0); MEAN PLATELET VOLUME 10.1 fL (7.4-10.4); MONOCYTES 3.6 % (2-11); RBC 3.36 10x6/uL (4.00-5.40); RDW 14.2 % (11.5-14.5); WBC 12.3 10x3/uL (4.8-10.8)
[2017-02-19 06:40] LABS: MCV 94.6 fL (80.0-100.0); PLATELET COUNT 162 10x3/uL (130-400)
[2017-02-19 07:48] VITALS: BP 127/58
[2017-02-19 11:32] VITALS: BP 104/49
[2017-02-19 15:58] VITALS: BP 113/42
[2017-02-19 20:06] VITALS: BP 124/68
[2017-02-20] VITALS: BP 120/64
[2017-02-20 06:10] VITALS: BP 135/69
[2017-02-20 06:19] LABS: BASOPHILS 0.1 % (0-2); EOSINOPHILS 0 % (0-7); HEMATOCRIT 32.4 % (36.0-48.0); HEMOGLOBIN 10.6 g/dL (12-16); IMMATURE GRANULOCYTES 1.5 % (0-5); LYMPHOCYTES 7.4 % (15-50); MCH 30.1 pg (26.0-34.0); MCHC 32.7 g/dL (31.0-37.0); MONOCYTES 6.9 % (2-11); NEUTROPHILS 84.1 % (40-80); PLATELET COUNT 117 10x3/uL (130-400); RBC 3.52 10x6/uL (4.00-5.40); RDW 13.8 % (11.5-14.5); WBC 9.6 10x3/uL (4.8-10.8)
[2017-02-20 06:42] LABS: ALBUMIN 2.3 g/dL (3.4-5.0); BILIRUBIN - TOTAL 0.26 mg/dL (0.2-1.3); CARBON DIOXIDE 26.6 mmol/L (21.0-32.0); PROTEIN - SERUM 5.4 g/dL (6.4-8.2)
[2017-02-20 06:44] LABS: ANION GAP 12.5 mmol/L (8-16); CREATININE - SERUM 0.9 mg/dL (0.6-1.3); POTASSIUM - SERUM 3.1 mmol/L (3.5-5.1)
[2017-02-20 07:49] VITALS: BP 131/77
[2017-02-20 11:23] VITALS: BP 142/64
[2017-02-20 16:45] VITALS: BP 137/70
[2017-02-20 21:11] VITALS: BP 152/68
[2017-02-21 01:27] VITALS: BP 115/56
[2017-02-21 05:08] VITALS: BP 121/68
[2017-02-21 06:45] LABS: BASOPHILS 0.2 % (0-2); EOSINOPHILS 0 % (0-7); HEMATOCRIT 35.5 % (36.0-48.0); HEMOGLOBIN 11.6 g/dL (12-16); IMMATURE GRANULOCYTES 3.3 % (0-5); LYMPHOCYTES 6.9 % (15-50); MCH 29.9 pg (26.0-34.0); MCHC 32.7 g/dL (31.0-37.0); MCV 91.5 fL (80.0-100.0); MEAN PLATELET VOLUME 11.1 fL (7.4-10.4); MONOCYTES 4.3 % (2-11); NEUTROPHILS 85.3 % (40-80); PLATELET COUNT 107 10x3/uL (130-400); RBC 3.88 10x6/uL (4.00-5.40); RDW 14.1 % (11.5-14.5); WBC 8.1 10x3/uL (4.8-10.8)
[2017-02-21 07:29] LABS: ALBUMIN 2.5 g/dL (3.4-5.0); ALKALINE PHOSPHATASE 53 U/L (46-116); ALT (SGPT) 63 U/L (10-68); BILIRUBIN - TOTAL 0.32 mg/dL (0.2-1.3); CALC OSMOLALITY 290 mosm/kg (275-300); CARBON DIOXIDE 26.2 mmol/L (21.0-32.0); CHLORIDE - SERUM 107 mmol/L (98-107); CREATININE - SERUM 0.8 mg/dL (0.6-1.3); GLUCOSE 135 mg/dL (74-106); POTASSIUM - SERUM 3.8 mmol/L (3.5-5.1); PROTEIN - SERUM 5.7 g/dL (6.4-8.2); SODIUM 144 mmol/L (136-145); UREA NITROGEN 17 mg/dL (7-18); eGFR NON AFRICAN AMERICAN 76 mL/min (90-120)
[2017-02-21 08:07] VITALS: BP 128/66
[2017-02-21 11:22] VITALS: BP 122/70
[2017-02-21 15:25] VITALS: BP 132/72
[2017-02-21 20:58] VITALS: BP 131/58
[2017-02-22 05:19] VITALS: BP 119/56
[2017-02-22 07:16] LABS: BASOPHILS 0.4 % (0-2); EOSINOPHILS 0 % (0-7); HEMOGLOBIN 11.9 g/dL (12-16); IMMATURE GRANULOCYTES 6.8 % (0-5); LYMPHOCYTES 9.5 % (15-50); MCH 30.1 pg (26.0-34.0); MCHC 32.2 g/dL (31.0-37.0); MCV 93.4 fL (80.0-100.0); MEAN PLATELET VOLUME 10.1 fL (7.4-10.4); MONOCYTES 4.7 % (2-11); NEUTROPHILS 78.6 % (40-80); RBC 3.96 10x6/uL (4.00-5.40); RDW 14.2 % (11.5-14.5); WBC 8.4 10x3/uL (4.8-10.8)
[2017-02-22 07:20] LABS: PLATELET COUNT 139 10x3/uL (130-400)
[2017-02-22 07:42] LABS: ALBUMIN 2.6 g/dL (3.4-5.0); ALKALINE PHOSPHATASE 57 U/L (46-116); ALT (SGPT) 61 U/L (10-68); CALC OSMOLALITY 289 mosm/kg (275-300); CALCIUM 8.9 mg/dL (8.5-10.1); CHLORIDE - SERUM 104 mmol/L (98-107); CREATININE - SERUM 0.8 mg/dL (0.6-1.3); GLUCOSE 131 mg/dL (74-106); POTASSIUM - SERUM 3.7 mmol/L (3.5-5.1); PROTEIN - SERUM 5.9 g/dL (6.4-8.2); SODIUM 142 mmol/L (136-145); UREA NITROGEN 26 mg/dL (7-18); eGFR NON AFRICAN AMERICAN 76 mL/min (90-120)
[2017-02-22 12:25] VITALS: BP 124/58
[2017-02-22 16:18] VITALS: BP 145/70
[2017-02-22 20:50] VITALS: BP 125/66
[2017-02-23 01:45] VITALS: BP 129/66
[2017-02-23 06:45] LABS: BASOPHILS 0.1 % (0-2); EOSINOPHILS 0 % (0-7); HEMATOCRIT 32.7 % (36.0-48.0); HEMOGLOBIN 10.9 g/dL (12-16); IMMATURE GRANULOCYTES 4.1 % (0-5); LYMPHOCYTES 9.2 % (15-50); MCH 30.7 pg (26.0-34.0); MCHC 33.3 g/dL (31.0-37.0); MCV 92.1 fL (80.0-100.0); MEAN PLATELET VOLUME 11.3 fL (7.4-10.4); MONOCYTES 5.1 % (2-11); NEUTROPHILS 81.5 % (40-80); RBC 3.55 10x6/uL (4.00-5.40); RDW 13.8 % (11.5-14.5); WBC 7.5 10x3/uL (4.8-10.8)
[2017-02-23 06:46] LABS: PLATELET COUNT 111 10x3/uL (130-400)
[2017-02-23 07:01] VITALS: BP 138/66
[2017-02-23 07:02] LABS: CALC OSMOLALITY 287 mosm/kg (275-300); CALCIUM 8.5 mg/dL (8.5-10.1); CARBON DIOXIDE 32.6 mmol/L (21.0-32.0); CHLORIDE - SERUM 104 mmol/L (98-107); CREATININE - SERUM 0.6 mg/dL (0.6-1.3); GLUCOSE 129 mg/dL (74-106); SODIUM 140 mmol/L (136-145); UREA NITROGEN 31 mg/dL (7-18); eGFR NON AFRICAN AMERICAN > 90 mL/min (90-120)
[2017-02-23 08:00] VITALS: BP 95/56
[2017-02-23 12:03] VITALS: BP 125/57
[2017-02-23 20:00] VITALS: BP 135/65
[2017-02-23 22:33] LABS: INR 0.96 (0.85-1.17); PROTIME 12.4 SECONDS (11.6-15.0)
[2017-02-23 22:35] LABS: BASOPHILS 0.6 % (0-2); EOSINOPHILS 0 % (0-7); HEMATOCRIT 38.4 % (36.0-48.0); HEMOGLOBIN 12.8 g/dL (12-16); IMMATURE GRANULOCYTES 5.7 % (0-5); LYMPHOCYTES 9.7 % (15-50); MCHC 33.3 g/dL (31.0-37.0); MEAN PLATELET VOLUME 8.7 fL (7.4-10.4); MONOCYTES 7.2 % (2-11); NEUTROPHILS 76.8 % (40-80); RBC 4.13 10x6/uL (4.00-5.40); RDW 14.1 % (11.5-14.5)
[2017-02-23 22:36] LABS: PLATELET COUNT 241 10x3/uL (130-400); WBC 10.1 10x3/uL (4.8-10.8)
[2017-02-23 22:57] LABS: APTT < 20.0 SECONDS (22.8-39.4)
[2017-02-24 00:30] VITALS: BP 121/58
[2017-02-24 04:30] VITALS: BP 120/55
[2017-02-24 08:41] VITALS: BP 125/60
[2017-02-24 22:33] VITALS: BP 101/53
[2017-02-25 04:40] VITALS: BP 94/56
[2017-02-25 07:11] LABS: HEMATOCRIT 36.6 % (36.0-48.0); MCH 30.5 pg (26.0-34.0); MCHC 32.8 g/dL (31.0-37.0); MCV 92.9 fL (80.0-100.0); RBC 3.94 10x6/uL (4.00-5.40); RDW 14.5 % (11.5-14.5); WBC 10.3 10x3/uL (4.8-10.8)
[2017-02-25 07:28] LABS: ALBUMIN 2.5 g/dL (3.4-5.0); ALKALINE PHOSPHATASE 52 U/L (46-116); ALT (SGPT) 30 U/L (10-68); BILIRUBIN - TOTAL 0.31 mg/dL (0.2-1.3); CALC OSMOLALITY 300 mosm/kg (275-300); CALCIUM 8.4 mg/dL (8.5-10.1); CARBON DIOXIDE 33.4 mmol/L (21.0-32.0); CHLORIDE - SERUM 107 mmol/L (98-107); CREATININE - SERUM 0.8 mg/dL (0.6-1.3); GLUCOSE 139 mg/dL (74-106); POTASSIUM - SERUM 4.1 mmol/L (3.5-5.1); PROTEIN - SERUM 5.4 g/dL (6.4-8.2); SODIUM 146 mmol/L (136-145); UREA NITROGEN 36 mg/dL (7-18); eGFR NON AFRICAN AMERICAN 76 mL/min (90-120)
[2017-02-25 07:52] VITALS: BP 131/63
[2017-02-25 08:02] LABS: LYMPHOCYTES 4 % (15-50); MONOCYTES 6 % (2-11); NEUTROPHILS 85 % (40-80); PLATELET ESTIMATE NORMAL
[2017-02-25 08:07] LABS: PLATELET MORPHOLOGY PLT CLUMPS PRESENT
[2017-02-25 08:09] LABS: MEAN PLATELET VOLUME 9.4 fL (7.4-10.4)
[2017-02-25 08:11] LABS: PLATELET COUNT 191 10x3/uL (130-400)
[2017-02-25 11:33] VITALS: BP 109/52
[2017-02-25 15:36] VITALS: BP 132/63
[2017-02-25 19:09] LABS: ACID FAST SMEAR Negative (()); AFB SPECIMEN PROCESSING Concentration (())
[2017-02-25 21:44] VITALS: BP 122/57
[2017-02-26 04:47] VITALS: BP 102/49
[2017-02-26 05:53] LABS: HEMATOCRIT 33.8 % (36.0-48.0); HEMOGLOBIN 11.5 g/dL (12-16); MCH 31.5 pg (26.0-34.0); MCV 92.6 fL (80.0-100.0); MEAN PLATELET VOLUME 9.8 fL (7.4-10.4); PLATELET COUNT 191 10x3/uL (130-400); RBC 3.65 10x6/uL (4.00-5.40); RDW 14.7 % (11.5-14.5); WBC 9.8 10x3/uL (4.8-10.8)
[2017-02-26 06:06] LABS: ANION GAP 10.6 mmol/L (8-16); CREATININE - SERUM 0.9 mg/dL (0.6-1.3); POTASSIUM - SERUM 3.6 mmol/L (3.5-5.1)
[2017-02-26 07:22] LABS: LYMPHOCYTES 9 % (15-50); MONOCYTES 2 % (2-11); NEUTROPHILS 89 % (40-80); PLATELET ESTIMATE NORMAL
[2017-02-26 07:23] LABS: PLATELET MORPHOLOGY PLT CLUMPS PRESENT
[2017-02-26 07:57] VITALS: BP 132/72
[2017-02-26 11:18] VITALS: BP 150/70
[2017-02-26 15:38] VITALS: BP 140/65
[2017-02-26 21:03] VITALS: BP 98/47
[2017-02-26 23:54] VITALS: BP 90/38
[2017-02-27 04:49] VITALS: BP 100/45
[2017-02-27 05:53] LABS: BASOPHILS 0.2 % (0-2); EOSINOPHILS 0 % (0-7); HEMATOCRIT 33.8 % (36.0-48.0); HEMOGLOBIN 11.3 g/dL (12-16); IMMATURE GRANULOCYTES 4.8 % (0-5); LYMPHOCYTES 6.4 % (15-50); MCH 30.9 pg (26.0-34.0); MCHC 33.4 g/dL (31.0-37.0); MCV 92.3 fL (80.0-100.0); MONOCYTES 3.7 % (2-11); NEUTROPHILS 84.9 % (40-80); PLATELET COUNT 167 10x3/uL (130-400); RBC 3.66 10x6/uL (4.00-5.40); RDW 14.4 % (11.5-14.5); WBC 9.8 10x3/uL (4.8-10.8)
[2017-02-27 06:07] LABS: CALC OSMOLALITY 285 mosm/kg (275-300); CALCIUM 8.3 mg/dL (8.5-10.1); CARBON DIOXIDE 31.5 mmol/L (21.0-32.0); CHLORIDE - SERUM 98 mmol/L (98-107); CREATININE - SERUM 0.8 mg/dL (0.6-1.3); GLUCOSE 178 mg/dL (74-106); POTASSIUM - SERUM 3.5 mmol/L (3.5-5.1); SODIUM 138 mmol/L (136-145); UREA NITROGEN 30 mg/dL (7-18); eGFR NON AFRICAN AMERICAN 76 mL/min (90-120)
[2017-02-27 06:31] LABS: APPEARANCE CLEAR (CLEAR); BILIRUBIN NEGATIVE (NEGATIVE); COLOR YELLOW (YELLOW); GLUCOSE NEGATIVE (NEGATIVE); KETONE NEGATIVE (NEGATIVE); NITRITE NEGATIVE (NEGATIVE); PROTEIN NEGATIVE (NEGATIVE); UROBILINOGEN NORMAL (NORMAL)
[2017-02-27 08:35] VITALS: BP 136/82
[2017-02-27 11:40] VITALS: BP 124/64
[2017-02-27 12:14] LABS: FUNGUS STAIN Final report (())
[2017-02-27 15:34] VITALS: BP 136/72
[2017-02-27 19:00] VITALS: BP 95/51
[2017-02-28 04:00] VITALS: BP 116/44
[2017-02-28 08:04] VITALS: BP 89/42
[2017-02-28 09:28] LABS: HEMATOCRIT 36.3 % (36.0-48.0); MCH 30.8 pg (26.0-34.0); MCHC 33.1 g/dL (31.0-37.0); MCV 93.3 fL (80.0-100.0); MEAN PLATELET VOLUME 10.4 fL (7.4-10.4); PLATELET COUNT 193 10x3/uL (130-400); RBC 3.89 10x6/uL (4.00-5.40); RDW 14.6 % (11.5-14.5); WBC 21.1 10x3/uL (4.8-10.8)
[2017-02-28 09:46] LABS: LYMPHOCYTES 7 % (15-50); MONOCYTES 6 % (2-11); NEUTROPHILS 71 % (40-80)
[2017-02-28 09:47] LABS: ALBUMIN 2.6 g/dL (3.4-5.0); ANION GAP 9.2 mmol/L (8-16); BILIRUBIN - TOTAL 1.04 mg/dL (0.2-1.3); CALCIUM 8.9 mg/dL (8.5-10.1); CARBON DIOXIDE 35.6 mmol/L (21.0-32.0); MAGNESIUM - SERUM 2.1 mg/dL (1.8-2.4); PHOSPHOROUS 4.7 mg/dL (2.5-4.9); PLATELET ESTIMATE DECREASED; PROTEIN - SERUM 5.3 g/dL (6.4-8.2)
[2017-02-28 09:50] LABS: CREATININE - SERUM 1.1 mg/dL (0.6-1.3); POTASSIUM - SERUM 4.8 mmol/L (3.5-5.1)
[2017-02-28 11:34] VITALS: BP 84/40
[2017-02-28 15:37] VITALS: BP 97/46
[2017-02-28 21:26] VITALS: BP 84/42
[2017-03-01 01:29] VITALS: BP 130/52
[2017-03-01 06:38] LABS: BASOPHILS 0.1 % (0-2); EOSINOPHILS 0 % (0-7); HEMATOCRIT 32.8 % (36.0-48.0); HEMOGLOBIN 10.9 g/dL (12-16); IMMATURE GRANULOCYTES 1.1 % (0-5); LYMPHOCYTES 3.4 % (15-50); MCH 31.1 pg (26.0-34.0); MCHC 33.2 g/dL (31.0-37.0); MCV 93.7 fL (80.0-100.0); MEAN PLATELET VOLUME 10.2 fL (7.4-10.4); NEUTROPHILS 91.4 % (40-80); PLATELET COUNT 198 10x3/uL (130-400); RDW 14.9 % (11.5-14.5)
[2017-03-01 06:50] LABS: ANION GAP 8.7 mmol/L (8-16); CALCIUM 8.5 mg/dL (8.5-10.1); CARBON DIOXIDE 35.8 mmol/L (21.0-32.0); POTASSIUM - SERUM 4.5 mmol/L (3.5-5.1)
[2017-03-01 07:58] VITALS: BP 114/56
[2017-03-01 11:24] VITALS: BP 91/48
[2017-03-01 15:35] VITALS: BP 103/57
[2017-03-01 21:27] VITALS: BP 88/43
[2017-03-02 01:46] VITALS: BP 84/35
[2017-03-02 05:34] LABS: CARBON DIOXIDE 34.2 mmol/L (21.0-32.0); CHLORIDE - SERUM 99 mmol/L (98-107); CREATININE - SERUM 0.8 mg/dL (0.6-1.3); SODIUM 137 mmol/L (136-145); eGFR NON AFRICAN AMERICAN 76 mL/min (90-120)
[2017-03-02 05:35] LABS: CALC OSMOLALITY 294 mosm/kg (275-300); GLUCOSE 310 mg/dL (74-106); UREA NITROGEN 37 mg/dL (7-18)
[2017-03-02 05:39] LABS: BASOPHILS 0.1 % (0-2); EOSINOPHILS 0 % (0-7); HEMATOCRIT 29.3 % (36.0-48.0); HEMOGLOBIN 9.4 g/dL (12-16); IMMATURE GRANULOCYTES 1.4 % (0-5); LYMPHOCYTES 3.6 % (15-50); MCH 30.7 pg (26.0-34.0); MCHC 32.1 g/dL (31.0-37.0); MEAN PLATELET VOLUME 10.6 fL (7.4-10.4); MONOCYTES 3.6 % (2-11); NEUTROPHILS 91.3 % (40-80); PLATELET COUNT 170 10x3/uL (130-400); RBC 3.06 10x6/uL (4.00-5.40); RDW 14.8 % (11.5-14.5); WBC 10.6 10x3/uL (4.8-10.8)
[2017-03-02 05:40] VITALS: BP 88/40
[2017-03-02 05:45] LABS: MCV 95.8 fL (80.0-100.0)
[2017-03-02 08:10] VITALS: BP 94/39
[2017-03-02 11:23] VITALS: BP 109/43
[2017-03-02 15:31] VITALS: BP 120/52
[2017-03-02 19:00] VITALS: BP 139/49
[2017-03-03 04:00] VITALS: BP 104/46
[2017-03-03 07:42] VITALS: BP 132/76
[2017-03-03 11:17] LABS: FUNGUS STAIN RESULT 1 Hyphae observed (())
[2017-03-03 11:26] VITALS: BP 99/41
[2017-03-03 12:28] LABS: BASOPHILS 0.2 % (0-2); EOSINOPHILS 0 % (0-7); HEMATOCRIT 28.5 % (36.0-48.0); HEMOGLOBIN 9.3 g/dL (12-16); IMMATURE GRANULOCYTES 7.8 % (0-5); LYMPHOCYTES 3.7 % (15-50); MCH 30.9 pg (26.0-34.0); MCHC 32.6 g/dL (31.0-37.0); MCV 94.7 fL (80.0-100.0); MEAN PLATELET VOLUME 10.3 fL (7.4-10.4); MONOCYTES 3.8 % (2-11); NEUTROPHILS 84.5 % (40-80); RBC 3.01 10x6/uL (4.00-5.40); RDW 14.2 % (11.5-14.5); WBC 11.5 10x3/uL (4.8-10.8)
[2017-03-03 12:34] LABS: PLATELET COUNT 210 10x3/uL (130-400)
[2017-03-03 12:38] LABS: CALCIUM 8.1 mg/dL (8.5-10.1); CARBON DIOXIDE 33.9 mmol/L (21.0-32.0); CHLORIDE - SERUM 96 mmol/L (98-107); CREATININE - SERUM 0.7 mg/dL (0.6-1.3); POTASSIUM - SERUM 4.2 mmol/L (3.5-5.1); SODIUM 134 mmol/L (136-145); eGFR NON AFRICAN AMERICAN 89 mL/min (90-120)
[2017-03-03 12:40] LABS: CALC OSMOLALITY 275 mosm/kg (275-300); GLUCOSE 179 mg/dL (74-106); UREA NITROGEN 25 mg/dL (7-18)
[2017-03-03 15:35] VITALS: BP 94/52
[2017-03-03 20:46] VITALS: BP 102/35
[2017-03-04 04:46] VITALS: BP 90/50
[2017-03-04 05:39] LABS: BASOPHILS 0.5 % (0-2); EOSINOPHILS 0.2 % (0-7); HEMATOCRIT 28.5 % (36.0-48.0); HEMOGLOBIN 9.3 g/dL (12-16); IMMATURE GRANULOCYTES 11.6 % (0-5); LYMPHOCYTES 7.4 % (15-50); MCHC 32.6 g/dL (31.0-37.0); NEUTROPHILS 79.3 % (40-80); PLATELET COUNT 228 10x3/uL (130-400); RDW 14.4 % (11.5-14.5); WBC 9.2 10x3/uL (4.8-10.8)
[2017-03-04 06:07] LABS: CALC OSMOLALITY 276 mosm/kg (275-300); CALCIUM 8.4 mg/dL (8.5-10.1); CARBON DIOXIDE 34.8 mmol/L (21.0-32.0); CHLORIDE - SERUM 96 mmol/L (98-107); CREATININE - SERUM 0.7 mg/dL (0.6-1.3); GLUCOSE 158 mg/dL (74-106); POTASSIUM - SERUM 4.4 mmol/L (3.5-5.1); SODIUM 134 mmol/L (136-145); UREA NITROGEN 30 mg/dL (7-18); eGFR NON AFRICAN AMERICAN 89 mL/min (90-120)
[2017-03-04 08:36] VITALS: BP 110/47
[2017-03-04 09:16] LABS: FUNGUS CULTURE RESULT 1 Candida albicans (()); FUNGUS CULTURE RESULT 2 Penicillium species (()); FUNGUS MYCOLOGY CULTURE Final report (())
[2017-03-04 12:15] VITALS: BP 103/54
[2017-03-04 15:06] VITALS: BP 114/63
[2017-03-04 19:00] VITALS: BP 166/113
[2017-03-05] VITALS: BP 114/63
[2017-03-05 04:00] VITALS: BP 90/47
[2017-03-05 07:58] LABS: HEMATOCRIT 29.4 % (36.0-48.0); HEMOGLOBIN 9.6 g/dL (12-16); LYMPHOCYTES 4.2 % (15-50); MCH 30.5 pg (26.0-34.0); MCHC 32.7 g/dL (31.0-37.0); MCV 93.3 fL (80.0-100.0); MEAN PLATELET VOLUME 9.7 fL (7.4-10.4); NEUTROPHILS 92.9 % (40-80); PLATELET COUNT 211 10x3/uL (130-400); RBC 3.15 10x6/uL (4.00-5.40); RDW 15.6 % (11.5-14.5)
[2017-03-05 08:08] VITALS: BP 93/45
[2017-03-05 08:29] LABS: CALC OSMOLALITY 287 mosm/kg (275-300); CALCIUM 8.4 mg/dL (8.5-10.1); CARBON DIOXIDE 31.5 mmol/L (21.0-32.0); CHLORIDE - SERUM 99 mmol/L (98-107); CREATININE - SERUM 0.7 mg/dL (0.6-1.3); GLUCOSE 191 mg/dL (74-106); POTASSIUM - SERUM 4.6 mmol/L (3.5-5.1); SODIUM 137 mmol/L (136-145); eGFR NON AFRICAN AMERICAN 89 mL/min (90-120)
[2017-03-05 08:30] LABS: UREA NITROGEN 39 mg/dL (7-18)
[2017-03-05 11:37] VITALS: BP 98/49
[2017-03-05 16:01] VITALS: BP 98/50
[2017-03-05 21:52] VITALS: BP 95/47
[2017-03-06 04:58] LABS: ALKALINE PHOSPHATASE 56 U/L (46-116); ALT (SGPT) 32 U/L (10-68); CALC OSMOLALITY 289 mosm/kg (275-300); CALCIUM 8.1 mg/dL (8.5-10.1); CARBON DIOXIDE 31.5 mmol/L (21.0-32.0); CHLORIDE - SERUM 100 mmol/L (98-107); CREATININE - SERUM 0.7 mg/dL (0.6-1.3); MAGNESIUM - SERUM 2.2 mg/dL (1.8-2.4); POTASSIUM - SERUM 4.3 mmol/L (3.5-5.1); PRO BNP 277 pg/mL (0-125); PROTEIN - SERUM 4.9 g/dL (6.4-8.2); SODIUM 136 mmol/L (136-145); UREA NITROGEN 41 mg/dL (7-18); eGFR NON AFRICAN AMERICAN 89 mL/min (90-120)
[2017-03-06 05:08] LABS: GLUCOSE 245 mg/dL (74-106)
[2017-03-06 06:17] VITALS: BP 100/46
[2017-03-06 06:26] LABS: BASOPHILS 0.1 % (0-2); EOSINOPHILS 0 % (0-7); HEMATOCRIT 25.2 % (36.0-48.0); HEMOGLOBIN 8.1 g/dL (12-16); IMMATURE GRANULOCYTES 7.8 % (0-5); MCH 30.1 pg (26.0-34.0); MCHC 32.1 g/dL (31.0-37.0); MCV 93.7 fL (80.0-100.0); MEAN PLATELET VOLUME 9.5 fL (7.4-10.4); MONOCYTES 5.3 % (2-11); NEUTROPHILS 81.8 % (40-80); PLATELET COUNT 226 10x3/uL (130-400); RBC 2.69 10x6/uL (4.00-5.40); RDW 14.4 % (11.5-14.5); WBC 8.6 10x3/uL (4.8-10.8)
[2017-03-06 07:57] VITALS: BP 107/50
[2017-03-06 11:30] VITALS: BP 91/44
[2017-03-06 15:52] VITALS: BP 96/47
[2017-03-06 20:07] VITALS: BP 104/54
[2017-03-07] VITALS: BP 95/47
[2017-03-07 05:21] VITALS: BP 98/48
[2017-03-07 07:00] LABS: BASOPHILS 0.2 % (0-2); EOSINOPHILS 0.1 % (0-7); HEMATOCRIT 25.7 % (36.0-48.0); HEMOGLOBIN 8.5 g/dL (12-16); IMMATURE GRANULOCYTES 9.5 % (0-5); LYMPHOCYTES 4.4 % (15-50); MCH 30.5 pg (26.0-34.0); MCHC 33.1 g/dL (31.0-37.0); MCV 92.1 fL (80.0-100.0); MEAN PLATELET VOLUME 9.8 fL (7.4-10.4); MONOCYTES 2.8 % (2-11); PLATELET COUNT 228 10x3/uL (130-400); RBC 2.79 10x6/uL (4.00-5.40); RDW 14.3 % (11.5-14.5)
[2017-03-07 07:02] LABS: WBC 12.4 10x3/uL (4.8-10.8)
[2017-03-07 07:31] LABS: CALC OSMOLALITY 290 mosm/kg (275-300); CALCIUM 8.5 mg/dL (8.5-10.1); CARBON DIOXIDE 29.2 mmol/L (21.0-32.0); CHLORIDE - SERUM 99 mmol/L (98-107); CREATININE - SERUM 0.8 mg/dL (0.6-1.3); GLUCOSE 193 mg/dL (74-106); POTASSIUM - SERUM 4.3 mmol/L (3.5-5.1); SODIUM 137 mmol/L (136-145); UREA NITROGEN 45 mg/dL (7-18); eGFR NON AFRICAN AMERICAN 76 mL/min (90-120)
[2017-03-07 08:09] VITALS: BP 108/50
[2017-03-07 08:18] LABS: IMMUNOGLOBULIN E 44 IU/mL (0-100)
[2017-03-07 12:28] VITALS: BP 98/52
[2017-03-07 17:31] VITALS: BP 119/47
[2017-03-07 21:16] VITALS: BP 103/53
[2017-03-08 01:23] VITALS: BP 102/51
[2017-03-08 05:58] VITALS: BP 106/57
[2017-03-08 06:09] LABS: BASOPHILS 0.1 % (0-2); EOSINOPHILS 0.1 % (0-7); HEMATOCRIT 25.6 % (36.0-48.0); HEMOGLOBIN 8.3 g/dL (12-16); IMMATURE GRANULOCYTES 8.1 % (0-5); LYMPHOCYTES 5.4 % (15-50); MCHC 32.4 g/dL (31.0-37.0); MEAN PLATELET VOLUME 9.8 fL (7.4-10.4); MONOCYTES 0.1 % (2-11); NEUTROPHILS 86.2 % (40-80); PLATELET COUNT 258 10x3/uL (130-400); RBC 2.68 10x6/uL (4.00-5.40); WBC 14.1 10x3/uL (4.8-10.8)
[2017-03-08 06:11] LABS: MCV 95.5 fL (80.0-100.0)
[2017-03-08 06:38] LABS: CALC OSMOLALITY 291 mosm/kg (275-300); CALCIUM 8.6 mg/dL (8.5-10.1); CARBON DIOXIDE 31.4 mmol/L (21.0-32.0); CHLORIDE - SERUM 99 mmol/L (98-107); CREATININE - SERUM 0.8 mg/dL (0.6-1.3); GLUCOSE 190 mg/dL (74-106); SODIUM 137 mmol/L (136-145); UREA NITROGEN 48 mg/dL (7-18); eGFR NON AFRICAN AMERICAN 76 mL/min (90-120)
[2017-03-08 08:13] VITALS: BP 104/47
[2017-03-08 11:48] VITALS: BP 129/65
[2017-03-08 13:03] LABS: % SATURATION 64 % (15-55); IRON 164 ug/dl (35-150); TOTAL IRON BIND CAPACITY 253 ug/dl (260-445); UNSAT IRON BIND CAPACITY 89 ug/dl (150-375)
[2017-03-08 16:20] VITALS: BP 108/51
[2017-03-08 21:39] VITALS: BP 109/50
[2017-03-09 00:54] VITALS: BP 107/41
[2017-03-09 06:02] VITALS: BP 107/52
[2017-03-09 07:28] LABS: ALKALINE PHOSPHATASE 52 U/L (46-116); ALT (SGPT) 33 U/L (10-68); CALC OSMOLALITY 287 mosm/kg (275-300); CALCIUM 8.4 mg/dL (8.5-10.1); CARBON DIOXIDE 28.3 mmol/L (21.0-32.0); CHLORIDE - SERUM 102 mmol/L (98-107); CREATININE - SERUM 0.7 mg/dL (0.6-1.3); GLUCOSE 155 mg/dL (74-106); POTASSIUM - SERUM 4.9 mmol/L (3.5-5.1); PROTEIN - SERUM 4.8 g/dL (6.4-8.2); SODIUM 137 mmol/L (136-145); UREA NITROGEN 44 mg/dL (7-18); eGFR NON AFRICAN AMERICAN 89 mL/min (90-120)
[2017-03-09 07:34] LABS: BASOPHILS 0.2 % (0-2); EOSINOPHILS 0 % (0-7); HEMATOCRIT 23.6 % (36.0-48.0); LYMPHOCYTES 6.8 % (15-50); MCH 29.9 pg (26.0-34.0); MCHC 31.8 g/dL (31.0-37.0); MEAN PLATELET VOLUME 10.2 fL (7.4-10.4); MONOCYTES 0.4 % (2-11); NEUTROPHILS 84.6 % (40-80); RBC 2.51 10x6/uL (4.00-5.40); RDW 14.9 % (11.5-14.5); WBC 13.3 10x3/uL (4.8-10.8)
[2017-03-09 07:35] LABS: HEMOGLOBIN 7.5 g/dL (12-16); PLATELET COUNT 194 10x3/uL (130-400)
[2017-03-09 09:46] VITALS: BP 100/50
[2017-03-09 16:32] VITALS: BP 92/52
[2017-03-09 19:00] VITALS: BP 90/42
[2017-03-10] VITALS: BP 69/34
[2017-03-10 06:56] LABS: ALBUMIN 1.9 g/dL (3.4-5.0); ANION GAP 13.7 mmol/L (8-16); BILIRUBIN - TOTAL 0.42 mg/dL (0.2-1.3); CALCIUM 8.2 mg/dL (8.5-10.1); CARBON DIOXIDE 28.4 mmol/L (21.0-32.0); POTASSIUM - SERUM 5.1 mmol/L (3.5-5.1); PROTEIN - SERUM 4.4 g/dL (6.4-8.2)
[2017-03-10 07:26] LABS: LYMPHOCYTES 10.6 % (15-50); MCV 93.8 fL (80.0-100.0); MEAN PLATELET VOLUME 10.7 fL (7.4-10.4); NEUTROPHILS 87.4 % (40-80); RDW 15.7 % (11.5-14.5); WBC 14.1 10x3/uL (4.8-10.8)
[2017-03-10 07:30] LABS: HEMATOCRIT 19.7 % (36.0-48.0); HEMOGLOBIN 6.5 g/dL (12-16); PLATELET COUNT 141 10x3/uL (130-400)
[2017-03-10 08:17] LABS: FOLATE (FOLIC ACID) - SERUM 8.2 ng/mL (>3.0)
[2017-03-10 08:36] VITALS: BP 90/36
[2017-03-10 09:33] VITALS: BP 90/36
[2017-03-10 12:11] VITALS: BP 71/36
[2017-03-10 14:17] LABS: HEMOGLOBIN 8.9 g/dL (12-16)
[2017-03-10 16:12] LABS: ASPERGILLUS - FLAVUS Negative (Neg:<1:1); ASPERGILLUS - FUMIGATUS Negative (Neg:<1:1); ASPERGILLUS - NIGER Negative (Neg:<1:1)
[2017-03-10 16:37] VITALS: Ht 165.1 cm; Wt 66.5 kg
[2017-03-10 17:43] LABS: % SATURATION 22 % (15-55); IRON 58 ug/dl (35-150); TOTAL IRON BIND CAPACITY 255 ug/dl (260-445); UNSAT IRON BIND CAPACITY 197 ug/dl (150-375)
[2017-03-10 17:50] VITALS: BP 92/40
[2017-03-10 22:14] VITALS: BP 73/35
[2017-03-11 01:10] VITALS: BP 83/37
[2017-03-11 05:07] VITALS: BP 82/63
[2017-03-11 05:50] LABS: BASOPHILS 0.2 % (0-2); EOSINOPHILS 0.2 % (0-7); HEMATOCRIT 24.6 % (36.0-48.0); IMMATURE GRANULOCYTES 7.9 % (0-5); LYMPHOCYTES 6.9 % (15-50); MCH 29.3 pg (26.0-34.0); MCHC 32.5 g/dL (31.0-37.0); MEAN PLATELET VOLUME 10.6 fL (7.4-10.4); NEUTROPHILS 82.8 % (40-80); PLATELET COUNT 115 10x3/uL (130-400)
[2017-03-11 06:02] LABS: MCV 90.1 fL (80.0-100.0); RBC 2.73 10x6/uL (4.00-5.40)
[2017-03-11 06:09] LABS: ALKALINE PHOSPHATASE 63 U/L (46-116); ALT (SGPT) 50 U/L (10-68); CALC OSMOLALITY 290 mosm/kg (275-300); CALCIUM 8.1 mg/dL (8.5-10.1); CARBON DIOXIDE 30.4 mmol/L (21.0-32.0); CHLORIDE - SERUM 104 mmol/L (98-107); CREATININE - SERUM 0.8 mg/dL (0.6-1.3); GLUCOSE 97 mg/dL (74-106); SODIUM 140 mmol/L (136-145); UREA NITROGEN 46 mg/dL (7-18); eGFR NON AFRICAN AMERICAN 76 mL/min (90-120)
[2017-03-11 08:41] VITALS: BP 96/47
[2017-03-11 12:30] VITALS: BP 110/64
[2017-03-11 17:16] LABS: APPEARANCE HAZY (CLEAR); COLOR DK YELLOW (YELLOW); GLUCOSE NEGATIVE (NEGATIVE); NITRITE NEGATIVE (NEGATIVE); PROTEIN NEGATIVE (NEGATIVE)
[2017-03-11 17:17] LABS: BILIRUBIN NEGATIVE (NEGATIVE); KETONE NEGATIVE (NEGATIVE); RED CELLS - URINE >50 /hpf (0-5); UROBILINOGEN NORMAL (NORMAL)
[2017-03-11 17:18] LABS: BACTERIA FEW /hpf (NONE SEEN)
[2017-03-11 17:27] VITALS: BP 94/49
[2017-03-11 21:59] VITALS: BP 86/50
[2017-03-12] VITALS (15 sets, daily range): BP systolic 77–112; BP diastolic 37–77
[2017-03-12 05:53] LABS: ALBUMIN 1.9 g/dL (3.4-5.0); ALKALINE PHOSPHATASE 60 U/L (46-116); ALT (SGPT) 53 U/L (10-68); BILIRUBIN - TOTAL 0.58 mg/dL (0.2-1.3); CALC OSMOLALITY 296 mosm/kg (275-300); CALCIUM 7.9 mg/dL (8.5-10.1); CARBON DIOXIDE 27.1 mmol/L (21.0-32.0); CHLORIDE - SERUM 106 mmol/L (98-107); CREATININE - SERUM 0.7 mg/dL (0.6-1.3); GLUCOSE 140 mg/dL (74-106); POTASSIUM - SERUM 3.7 mmol/L (3.5-5.1); PROTEIN - SERUM 4.5 g/dL (6.4-8.2); SODIUM 143 mmol/L (136-145); UREA NITROGEN 41 mg/dL (7-18); eGFR NON AFRICAN AMERICAN 89 mL/min (90-120)
[2017-03-12 05:56] LABS: BASOPHILS 0.4 % (0-2); EOSINOPHILS 0.2 % (0-7); HEMATOCRIT 22.9 % (36.0-48.0); HEMOGLOBIN 7.3 g/dL (12-16); IMMATURE GRANULOCYTES 9.2 % (0-5); LYMPHOCYTES 12.2 % (15-50); MCHC 31.9 g/dL (31.0-37.0); MCV 90.9 fL (80.0-100.0); MEAN PLATELET VOLUME 11.3 fL (7.4-10.4); MONOCYTES 2.5 % (2-11); NEUTROPHILS 75.5 % (40-80); PLATELET COUNT 102 10x3/uL (130-400); RBC 2.52 10x6/uL (4.00-5.40); RDW 17.5 % (11.5-14.5); WBC 8.3 10x3/uL (4.8-10.8)
[2017-03-12 18:14] LABS: HEMATOCRIT 26.4 % (36.0-48.0); HEMOGLOBIN 8.6 g/dL (12-16)
[2017-03-13] VITALS (25 sets, daily range): BP systolic 71–111; BP diastolic 50–76
[2017-03-13 03:53] LABS: BASOPHILS 0.5 % (0-2); EOSINOPHILS 0.2 % (0-7); HEMATOCRIT 28.1 % (36.0-48.0); HEMOGLOBIN 8.9 g/dL (12-16); IMMATURE GRANULOCYTES 8.7 % (0-5); LYMPHOCYTES 11.8 % (15-50); MCHC 31.7 g/dL (31.0-37.0); MCV 91.5 fL (80.0-100.0); MONOCYTES 2.4 % (2-11); NEUTROPHILS 76.4 % (40-80); PLATELET COUNT 111 10x3/uL (130-400); RBC 3.07 10x6/uL (4.00-5.40); RDW 18.1 % (11.5-14.5); WBC 5.8 10x3/uL (4.8-10.8)
[2017-03-13 04:14] LABS: INR 1.14 (0.85-1.17); PROTIME 14.2 SECONDS (11.6-15.0)
[2017-03-13 04:15] LABS: ALBUMIN 1.8 g/dL (3.4-5.0); ALKALINE PHOSPHATASE 63 U/L (46-116); ALT (SGPT) 51 U/L (10-68); CALC OSMOLALITY 290 mosm/kg (275-300); CALCIUM 7.5 mg/dL (8.5-10.1); CARBON DIOXIDE 27.9 mmol/L (21.0-32.0); CHLORIDE - SERUM 108 mmol/L (98-107); CREATININE - SERUM 0.5 mg/dL (0.6-1.3); D-DIMER-QUANTITATIVE 0.77 ug/mLFEU (0.20-0.54); GLUCOSE 127 mg/dL (74-106); LDH 466 U/L (81-234); POTASSIUM - SERUM 3.8 mmol/L (3.5-5.1); PROTEIN - SERUM 4.3 g/dL (6.4-8.2); SODIUM 143 mmol/L (136-145); UREA NITROGEN 24 mg/dL (7-18); eGFR NON AFRICAN AMERICAN > 90 mL/min (90-120)
[2017-03-13 10:48] LABS: CKMB 0.3 U/L (0.0-3.6); CREATINE KINASE 64 UL (21-215); TROPONIN-I 0.024 ng/mL (0.000-0.060)
[2017-03-13 16:28] LABS: HEMATOCRIT 26.6 % (36.0-48.0); HEMOGLOBIN 8.4 g/dL (12-16)
[2017-03-14] VITALS (24 sets, daily range): BP systolic 75–113; BP diastolic 43–75
[2017-03-14 06:02] LABS: BASOPHILS 0.2 % (0-2); EOSINOPHILS 0.4 % (0-7); HEMATOCRIT 28.9 % (36.0-48.0); HEMOGLOBIN 9.2 g/dL (12-16); IMMATURE GRANULOCYTES 4.3 % (0-5); LYMPHOCYTES 17.7 % (15-50); MCH 29.2 pg (26.0-34.0); MCHC 31.8 g/dL (31.0-37.0); MCV 91.7 fL (80.0-100.0); MEAN PLATELET VOLUME 10.8 fL (7.4-10.4); MONOCYTES 3.1 % (2-11); NEUTROPHILS 74.3 % (40-80); RBC 3.15 10x6/uL (4.00-5.40); RDW 18.5 % (11.5-14.5); WBC 5.4 10x3/uL (4.8-10.8)
[2017-03-14 06:03] LABS: PLATELET COUNT 101 10x3/uL (130-400)
[2017-03-14 06:19] LABS: ALBUMIN 1.5 g/dL (3.4-5.0); ALKALINE PHOSPHATASE 68 U/L (46-116); ALT (SGPT) 45 U/L (10-68); CALC OSMOLALITY 285 mosm/kg (275-300); CALCIUM 7.8 mg/dL (8.5-10.1); CARBON DIOXIDE 25.1 mmol/L (21.0-32.0); CHLORIDE - SERUM 109 mmol/L (98-107); CREATININE - SERUM 0.5 mg/dL (0.6-1.3); GLUCOSE 123 mg/dL (74-106); MAGNESIUM - SERUM 1.9 mg/dL (1.8-2.4); PHOSPHOROUS 2.8 mg/dL (2.5-4.9); POTASSIUM - SERUM 3.3 mmol/L (3.5-5.1); PROTEIN - SERUM 4.5 g/dL (6.4-8.2); SODIUM 143 mmol/L (136-145); eGFR NON AFRICAN AMERICAN > 90 mL/min (90-120)
[2017-03-14 06:26] LABS: UREA NITROGEN 12 mg/dL (7-18)
[2017-03-15] VITALS (24 sets, daily range): BP systolic 62–121; BP diastolic 44–98
[2017-03-15 03:23] LABS: BASOPHILS 0.2 % (0-2); EOSINOPHILS 0.4 % (0-7); HEMATOCRIT 25.3 % (36.0-48.0); HEMOGLOBIN 7.8 g/dL (12-16); IMMATURE GRANULOCYTES 2.2 % (0-5); LYMPHOCYTES 14.7 % (15-50); MCHC 30.8 g/dL (31.0-37.0); MEAN PLATELET VOLUME 9.4 fL (7.4-10.4); MONOCYTES 2.8 % (2-11); NEUTROPHILS 79.7 % (40-80); PLATELET COUNT 114 10x3/uL (130-400); RBC 2.69 10x6/uL (4.00-5.40); RDW 18.9 % (11.5-14.5); WBC 5.5 10x3/uL (4.8-10.8)
[2017-03-15 03:24] LABS: MCV 94.1 fL (80.0-100.0)
[2017-03-15 04:07] LABS: ALBUMIN 1.4 g/dL (3.4-5.0); ALKALINE PHOSPHATASE 70 U/L (46-116); ALT (SGPT) 40 U/L (10-68); BILIRUBIN - TOTAL 0.68 mg/dL (0.2-1.3); CALC OSMOLALITY 283 mosm/kg (275-300); CALCIUM 7.6 mg/dL (8.5-10.1); CARBON DIOXIDE 23.2 mmol/L (21.0-32.0); CHLORIDE - SERUM 110 mmol/L (98-107); CREATININE - SERUM 0.5 mg/dL (0.6-1.3); GLUCOSE 111 mg/dL (74-106); MAGNESIUM - SERUM 1.9 mg/dL (1.8-2.4); PHOSPHOROUS 2.8 mg/dL (2.5-4.9); POTASSIUM - SERUM 3.4 mmol/L (3.5-5.1); PROTEIN - SERUM 3.9 g/dL (6.4-8.2); SODIUM 142 mmol/L (136-145); UREA NITROGEN 13 mg/dL (7-18); eGFR NON AFRICAN AMERICAN > 90 mL/min (90-120)
[2017-03-15 14:24] LABS: HEMATOCRIT 22.4 % (36.0-48.0)
[2017-03-16] VITALS (25 sets, daily range): BP systolic 84–119; BP diastolic 44–79
[2017-03-16 03:44] LABS: BASOPHILS 0.2 % (0-2); EOSINOPHILS 0.4 % (0-7); IMMATURE GRANULOCYTES 1.6 % (0-5); LYMPHOCYTES 15.1 % (15-50); MCH 28.8 pg (26.0-34.0); MCHC 31.5 g/dL (31.0-37.0); MEAN PLATELET VOLUME 11.2 fL (7.4-10.4); MONOCYTES 3.9 % (2-11); NEUTROPHILS 78.8 % (40-80); RBC 3.12 10x6/uL (4.00-5.40); RDW 17.8 % (11.5-14.5); WBC 4.9 10x3/uL (4.8-10.8)
[2017-03-16 03:45] LABS: HEMATOCRIT 28.6 % (36.0-48.0); MCV 91.7 fL (80.0-100.0); PLATELET COUNT 53 10x3/uL (130-400)
[2017-03-16 04:05] LABS: ALBUMIN 1.3 g/dL (3.4-5.0); ALKALINE PHOSPHATASE 75 U/L (46-116); ALT (SGPT) 34 U/L (10-68); CALC OSMOLALITY 278 mosm/kg (275-300); CALCIUM 7.5 mg/dL (8.5-10.1); CARBON DIOXIDE 24.2 mmol/L (21.0-32.0); CHLORIDE - SERUM 109 mmol/L (98-107); CREATININE - SERUM 0.4 mg/dL (0.6-1.3); GLUCOSE 89 mg/dL (74-106); MAGNESIUM - SERUM 1.6 mg/dL (1.8-2.4); PHOSPHOROUS 2.8 mg/dL (2.5-4.9); POTASSIUM - SERUM 3.3 mmol/L (3.5-5.1); PROTEIN - SERUM 4.2 g/dL (6.4-8.2); SODIUM 141 mmol/L (136-145); UREA NITROGEN 11 mg/dL (7-18); eGFR NON AFRICAN AMERICAN > 90 mL/min (90-120)
[2017-03-16 11:19] LABS: MAGNESIUM - SERUM 1.6 mg/dL (1.8-2.4); POTASSIUM - SERUM 3.5 mmol/L (3.5-5.1)
[2017-03-16 13:23] LABS: HEMATOCRIT 27.6 % (36.0-48.0); HEMOGLOBIN 9.2 g/dL (12-16); LYMPHOCYTES 15.2 % (15-50); MCH 29.6 pg (26.0-34.0); MCHC 33.3 g/dL (31.0-37.0); MEAN PLATELET VOLUME 11.2 fL (7.4-10.4); NEUTROPHILS 80.7 % (40-80); RBC 3.11 10x6/uL (4.00-5.40); RDW 18.2 % (11.5-14.5); WBC 4.6 10x3/uL (4.8-10.8)
[2017-03-16 13:24] LABS: MCV 88.7 fL (80.0-100.0)
[2017-03-16 13:25] LABS: PLATELET COUNT 83 10x3/uL (130-400)
[2017-03-16 13:58] LABS: PLATELET ESTIMATE DECREASED
[2017-03-17] VITALS (24 sets, daily range): BP systolic 77–109; BP diastolic 47–76
[2017-03-17 04:29] LABS: BASOPHILS 0.3 % (0-2); EOSINOPHILS 0.3 % (0-7); IMMATURE GRANULOCYTES 2.2 % (0-5); MCH 28.8 pg (26.0-34.0); MCHC 31.7 g/dL (31.0-37.0); MONOCYTES 2.8 % (2-11); NEUTROPHILS 74.4 % (40-80); RDW 18.1 % (11.5-14.5)
[2017-03-17 04:45] LABS: ALBUMIN 1.3 g/dL (3.4-5.0); ALKALINE PHOSPHATASE 95 U/L (46-116); ALT (SGPT) 32 U/L (10-68); BILIRUBIN - TOTAL 0.96 mg/dL (0.2-1.3); CALC OSMOLALITY 279 mosm/kg (275-300); CALCIUM 7.9 mg/dL (8.5-10.1); CHLORIDE - SERUM 105 mmol/L (98-107); CREATININE - SERUM 0.5 mg/dL (0.6-1.3); GLUCOSE 93 mg/dL (74-106); POTASSIUM - SERUM 3.6 mmol/L (3.5-5.1); PROTEIN - SERUM 4.6 g/dL (6.4-8.2); SODIUM 140 mmol/L (136-145); eGFR NON AFRICAN AMERICAN > 90 mL/min (90-120)
[2017-03-17 04:48] LABS: UREA NITROGEN 14 mg/dL (7-18)
[2017-03-17 05:22] LABS: HEMATOCRIT 50.2 % (36.0-48.0); HEMOGLOBIN 15.9 g/dL (12-16); MCV 90.8 fL (80.0-100.0); PLATELET COUNT 71 10x3/uL (130-400); RBC 5.53 10x6/uL (4.00-5.40); WBC 3.2 10x3/uL (4.8-10.8)
[2017-03-17 07:59] LABS: BASOPHILS 0.2 % (0-2); EOSINOPHILS 0.2 % (0-7); IMMATURE GRANULOCYTES 2.1 % (0-5); LYMPHOCYTES 20.8 % (15-50); MCH 29.3 pg (26.0-34.0); MCHC 31.9 g/dL (31.0-37.0); MCV 91.8 fL (80.0-100.0); MEAN PLATELET VOLUME 12.1 fL (7.4-10.4); MONOCYTES 4.8 % (2-11); NEUTROPHILS 71.9 % (40-80); PLATELET COUNT 75 10x3/uL (130-400); RDW 17.9 % (11.5-14.5)
[2017-03-17 08:02] LABS: HEMATOCRIT 31.3 % (36.0-48.0); RBC 3.41 10x6/uL (4.00-5.40); WBC 5.3 10x3/uL (4.8-10.8)
[2017-03-18] VITALS (24 sets, daily range): BP systolic 86–134; BP diastolic 45–92
[2017-03-18 03:54] LABS: BASOPHILS 0.3 % (0-2); EOSINOPHILS 0.5 % (0-7); HEMATOCRIT 26.6 % (36.0-48.0); HEMOGLOBIN 8.4 g/dL (12-16); IMMATURE GRANULOCYTES 4.1 % (0-5); LYMPHOCYTES 22.6 % (15-50); MCHC 31.6 g/dL (31.0-37.0); MCV 91.7 fL (80.0-100.0); MEAN PLATELET VOLUME 11.3 fL (7.4-10.4); MONOCYTES 5.4 % (2-11); NEUTROPHILS 67.1 % (40-80); RDW 17.7 % (11.5-14.5)
[2017-03-18 03:58] LABS: PLATELET COUNT 50 10x3/uL (130-400); WBC 3.9 10x3/uL (4.8-10.8)
[2017-03-18 04:24] LABS: ALBUMIN 1.1 g/dL (3.4-5.0); ALKALINE PHOSPHATASE 89 U/L (46-116); ALT (SGPT) 31 U/L (10-68); CALC OSMOLALITY 283 mosm/kg (275-300); CALCIUM 7.3 mg/dL (8.5-10.1); CHLORIDE - SERUM 108 mmol/L (98-107); CREATININE - SERUM 0.4 mg/dL (0.6-1.3); GLUCOSE 123 mg/dL (74-106); MAGNESIUM - SERUM 1.8 mg/dL (1.8-2.4); POTASSIUM - SERUM 3.5 mmol/L (3.5-5.1); PRO BNP 506 pg/mL (0-125); PROTEIN - SERUM 3.8 g/dL (6.4-8.2); SODIUM 142 mmol/L (136-145); UREA NITROGEN 13 mg/dL (7-18); eGFR NON AFRICAN AMERICAN > 90 mL/min (90-120)
[2017-03-18 12:38] LABS: ERYTHROCYTE SEDIMENTATION RATE 20 mm/hr (0-30)
[2017-03-18 15:53] LABS: BASOPHILS 0 % (0-2); EOSINOPHILS 0.3 % (0-7); HEMATOCRIT 26.7 % (36.0-48.0); HEMOGLOBIN 8.3 g/dL (12-16); IMMATURE GRANULOCYTES 4.7 % (0-5); LYMPHOCYTES 27.3 % (15-50); MCH 28.8 pg (26.0-34.0); MCHC 31.1 g/dL (31.0-37.0); MCV 92.7 fL (80.0-100.0); MEAN PLATELET VOLUME 10.9 fL (7.4-10.4); MONOCYTES 6.6 % (2-11); NEUTROPHILS 61.1 % (40-80); RBC 2.88 10x6/uL (4.00-5.40); RDW 17.8 % (11.5-14.5); WBC 3.6 10x3/uL (4.8-10.8)
[2017-03-18 16:04] LABS: PLATELET COUNT 48 10x3/uL (130-400)
[2017-03-18 16:08] LABS: APTT 40.6 SECONDS (22.8-39.4); INR 1.15 (0.85-1.17); PROTIME 14.3 SECONDS (11.6-15.0)
[2017-03-18 16:27] LABS: BILIRUBIN - DIRECT 0.32 mg/dL (0.00-0.30); BILIRUBIN - TOTAL 0.8 mg/dL (0.2-1.3)
[2017-03-19] VITALS (57 sets, daily range): BP systolic 88–137; BP diastolic 47–73
[2017-03-19 07:42] LABS: ALBUMIN 1.3 g/dL (3.4-5.0); ALKALINE PHOSPHATASE 94 U/L (46-116); ALT (SGPT) 27 U/L (10-68); BILIRUBIN - TOTAL 0.95 mg/dL (0.2-1.3); CALC OSMOLALITY 282 mosm/kg (275-300); CALCIUM 7.4 mg/dL (8.5-10.1); CARBON DIOXIDE 26.5 mmol/L (21.0-32.0); CHLORIDE - SERUM 108 mmol/L (98-107); CREATININE - SERUM 0.3 mg/dL (0.6-1.3); GLUCOSE 85 mg/dL (74-106); PROTEIN - SERUM 4.4 g/dL (6.4-8.2); SODIUM 142 mmol/L (136-145); UREA NITROGEN 14 mg/dL (7-18); eGFR NON AFRICAN AMERICAN > 90 mL/min (90-120)
[2017-03-19 07:50] LABS: BASOPHILS 0.9 % (0-2); EOSINOPHILS 0.9 % (0-7); HEMATOCRIT 25.8 % (36.0-48.0); HEMOGLOBIN 8.1 g/dL (12-16); IMMATURE GRANULOCYTES 5.3 % (0-5); LYMPHOCYTES 32.4 % (15-50); MCH 29.1 pg (26.0-34.0); MCHC 31.4 g/dL (31.0-37.0); MCV 92.8 fL (80.0-100.0); MONOCYTES 8.2 % (2-11); NEUTROPHILS 52.3 % (40-80); RBC 2.78 10x6/uL (4.00-5.40); RDW 18.1 % (11.5-14.5); WBC 3.4 10x3/uL (4.8-10.8)
[2017-03-19 07:53] LABS: PLATELET COUNT 73 10x3/uL (130-400)
[2017-03-20] VITALS (59 sets, daily range): BP systolic 74–131; BP diastolic 43–87
[2017-03-20 04:21] LABS: BASOPHILS 0.9 % (0-2); EOSINOPHILS 0.7 % (0-7); IMMATURE GRANULOCYTES 8.3 % (0-5); LYMPHOCYTES 33.3 % (15-50); MCH 29.2 pg (26.0-34.0); MCV 91.3 fL (80.0-100.0); MEAN PLATELET VOLUME 11.5 fL (7.4-10.4); MONOCYTES 9.9 % (2-11); NEUTROPHILS 46.9 % (40-80); PLATELET COUNT 61 10x3/uL (130-400); RDW 17.3 % (11.5-14.5)
[2017-03-20 04:27] LABS: HEMATOCRIT 34.7 % (36.0-48.0); HEMOGLOBIN 11.1 g/dL (12-16); WBC 4.3 10x3/uL (4.8-10.8)
[2017-03-20 04:46] LABS: ALBUMIN 1.3 g/dL (3.4-5.0); ALKALINE PHOSPHATASE 108 U/L (46-116); ALT (SGPT) 26 U/L (10-68); BILIRUBIN - TOTAL 0.73 mg/dL (0.2-1.3); CALC OSMOLALITY 283 mosm/kg (275-300); CALCIUM 7.1 mg/dL (8.5-10.1); CHLORIDE - SERUM 111 mmol/L (98-107); CREATININE - SERUM 0.3 mg/dL (0.6-1.3); GLUCOSE 174 mg/dL (74-106); POTASSIUM - SERUM 3.2 mmol/L (3.5-5.1); PROTEIN - SERUM 4.4 g/dL (6.4-8.2); SODIUM 140 mmol/L (136-145); UREA NITROGEN 15 mg/dL (7-18); eGFR NON AFRICAN AMERICAN > 90 mL/min (90-120)
[2017-03-20 09:18] LABS: FOLATE (FOLIC ACID) - SERUM 11.5 ng/mL (>3.0)
[2017-03-20 13:19] LABS: HEPATITIS C ANTIBODY 0.1 (0.0-0.9)
[2017-03-20 17:12] LABS: ANA REFLEX - DIRECT Negative (Negative)
[2017-03-20 18:29] LABS: APPEARANCE CLEAR (CLEAR); BILIRUBIN NEGATIVE (NEGATIVE); COLOR YELLOW (YELLOW); GLUCOSE NEGATIVE (NEGATIVE); KETONE NEGATIVE (NEGATIVE); NITRITE NEGATIVE (NEGATIVE); PROTEIN NEGATIVE (NEGATIVE); UROBILINOGEN NORMAL (NORMAL)
[2017-03-20 18:30] LABS: RED CELLS - URINE 25-50 /hpf (0-5); WHITE CELLS - URINE 0-5 /hpf (0-5)
[2017-03-20 18:31] LABS: BACTERIA FEW /hpf (NONE SEEN); EPITHELIAL CELLS OCC /hpf (0-5)
[2017-03-21] VITALS (92 sets, daily range): BP systolic 76–166; BP diastolic 47–95
[2017-03-21 04:42] LABS: BASOPHILS 1.1 % (0-2); EOSINOPHILS 0.5 % (0-7); HEMATOCRIT 36.8 % (36.0-48.0); HEMOGLOBIN 11.9 g/dL (12-16); IMMATURE GRANULOCYTES 7.7 % (0-5); LYMPHOCYTES 39.4 % (15-50); MCH 29.5 pg (26.0-34.0); MCHC 32.3 g/dL (31.0-37.0); MCV 91.3 fL (80.0-100.0); MEAN PLATELET VOLUME 11.8 fL (7.4-10.4); NEUTROPHILS 41.3 % (40-80); PLATELET COUNT 63 10x3/uL (130-400); RBC 4.03 10x6/uL (4.00-5.40); RDW 17.7 % (11.5-14.5); WBC 5.7 10x3/uL (4.8-10.8)
[2017-03-21 04:58] LABS: HELICOBACTER PYLORI IGG NEGATIVE (NEGATIVE)
[2017-03-21 04:59] LABS: ALBUMIN 1.3 g/dL (3.4-5.0); ALKALINE PHOSPHATASE 136 U/L (46-116); ALT (SGPT) 27 U/L (10-68); BILIRUBIN - TOTAL 0.88 mg/dL (0.2-1.3); CALC OSMOLALITY 289 mosm/kg (275-300); CALCIUM 7.3 mg/dL (8.5-10.1); CARBON DIOXIDE 25.1 mmol/L (21.0-32.0); CHLORIDE - SERUM 110 mmol/L (98-107); GLUCOSE 161 mg/dL (74-106); PRO BNP 376 pg/mL (0-125); SODIUM 144 mmol/L (136-145); UREA NITROGEN 13 mg/dL (7-18)
[2017-03-21 05:04] LABS: CREATININE - SERUM 0.4 mg/dL (0.6-1.3); eGFR NON AFRICAN AMERICAN > 90 mL/min (90-120)
[2017-03-21 18:08] LABS: HEPARIN INDUCED PLATELET AB 0.281 OD (0.000-0.400)
[2017-03-22] VITALS (95 sets, daily range): BP systolic 74–168; BP diastolic 50–81
[2017-03-22 05:30] LABS: EOSINOPHILS 0.6 % (0-7); HEMATOCRIT 36.6 % (36.0-48.0); HEMOGLOBIN 11.5 g/dL (12-16); IMMATURE GRANULOCYTES 12.9 % (0-5); LYMPHOCYTES 36.9 % (15-50); MCH 29.5 pg (26.0-34.0); MCHC 31.4 g/dL (31.0-37.0); MEAN PLATELET VOLUME 11.3 fL (7.4-10.4); MONOCYTES 9.8 % (2-11); NEUTROPHILS 37.8 % (40-80); RDW 18.2 % (11.5-14.5)
[2017-03-22 05:37] LABS: MCV 93.8 fL (80.0-100.0); PLATELET COUNT 100 10x3/uL (130-400)
[2017-03-22 06:12] LABS: ALBUMIN 1.2 g/dL (3.4-5.0); ALKALINE PHOSPHATASE 128 U/L (46-116); ALT (SGPT) 23 U/L (10-68); BILIRUBIN - TOTAL 0.79 mg/dL (0.2-1.3); CALC OSMOLALITY 283 mosm/kg (275-300); CALCIUM 7.3 mg/dL (8.5-10.1); CARBON DIOXIDE 28.6 mmol/L (21.0-32.0); CHLORIDE - SERUM 107 mmol/L (98-107); CREATININE - SERUM 0.3 mg/dL (0.6-1.3); GLUCOSE 126 mg/dL (74-106); MAGNESIUM - SERUM 1.7 mg/dL (1.8-2.4); PRO BNP 464 pg/mL (0-125); PROTEIN - SERUM 4.4 g/dL (6.4-8.2); SODIUM 141 mmol/L (136-145); UREA NITROGEN 15 mg/dL (7-18); eGFR NON AFRICAN AMERICAN > 90 mL/min (90-120)
[2017-03-22 06:17] LABS: POTASSIUM - SERUM 3.8 mmol/L (3.5-5.1)
[2017-03-23] VITALS (57 sets, daily range): BP systolic 88–134; BP diastolic 50–79
[2017-03-23 04:23] LABS: EOSINOPHILS 0 % (0-7); HEMOGLOBIN 10.9 g/dL (12-16); IMMATURE GRANULOCYTES 12.9 % (0-5); LYMPHOCYTES 27.4 % (15-50); MCH 29.3 pg (26.0-34.0); MCHC 32.1 g/dL (31.0-37.0); MEAN PLATELET VOLUME 10.8 fL (7.4-10.4); MONOCYTES 7.2 % (2-11); NEUTROPHILS 51.5 % (40-80); PLATELET COUNT 107 10x3/uL (130-400); RBC 3.72 10x6/uL (4.00-5.40); RDW 17.6 % (11.5-14.5); WBC 7.2 10x3/uL (4.8-10.8)
[2017-03-23 04:27] LABS: MCV 91.4 fL (80.0-100.0)
[2017-03-23 05:04] LABS: ALBUMIN 1.2 g/dL (3.4-5.0); ALKALINE PHOSPHATASE 138 U/L (46-116); ALT (SGPT) 23 U/L (10-68); BILIRUBIN - TOTAL 0.64 mg/dL (0.2-1.3); CALCIUM 7.5 mg/dL (8.5-10.1); CARBON DIOXIDE 29.6 mmol/L (21.0-32.0); CREATININE - SERUM 0.3 mg/dL (0.6-1.3); PRO BNP 882 pg/mL (0-125); UREA NITROGEN 17 mg/dL (7-18); eGFR NON AFRICAN AMERICAN > 90 mL/min (90-120)
[2017-03-23 05:19] LABS: GLUCOSE 176 mg/dL (74-106)
[2017-03-23 05:39] LABS: CALC OSMOLALITY 283 mosm/kg (275-300); CHLORIDE - SERUM 103 mmol/L (98-107); SODIUM 139 mmol/L (136-145)
[2017-03-24] VITALS (24 sets, daily range): BP systolic 93–120; BP diastolic 43–81
[2017-03-24 07:19] LABS: EOSINOPHILS 0 % (0-7); HEMATOCRIT 28.8 % (36.0-48.0); HEMOGLOBIN 9.2 g/dL (12-16); IMMATURE GRANULOCYTES 11.5 % (0-5); LYMPHOCYTES 27.7 % (15-50); MCH 29.7 pg (26.0-34.0); MCHC 31.9 g/dL (31.0-37.0); MCV 92.9 fL (80.0-100.0); MEAN PLATELET VOLUME 10.8 fL (7.4-10.4); MONOCYTES 11.8 % (2-11); RDW 17.4 % (11.5-14.5); WBC 5.9 10x3/uL (4.8-10.8)
[2017-03-24 07:25] LABS: PLATELET COUNT 172 10x3/uL (130-400)
[2017-03-24 07:30] LABS: ALBUMIN 2.2 g/dL (3.4-5.0); ALKALINE PHOSPHATASE 99 U/L (46-116); ALT (SGPT) 22 U/L (10-68); CALC OSMOLALITY 289 mosm/kg (275-300); CALCIUM 7.7 mg/dL (8.5-10.1); CARBON DIOXIDE 30.6 mmol/L (21.0-32.0); CHLORIDE - SERUM 106 mmol/L (98-107); CREATININE - SERUM 0.4 mg/dL (0.6-1.3); GLUCOSE 136 mg/dL (74-106); PROTEIN - SERUM 5.4 g/dL (6.4-8.2); SODIUM 144 mmol/L (136-145); UREA NITROGEN 16 mg/dL (7-18); eGFR NON AFRICAN AMERICAN > 90 mL/min (90-120)
[2017-03-24 07:31] LABS: POTASSIUM - SERUM 2.7 mmol/L (3.5-5.1)
[2017-03-25] VITALS (24 sets, daily range): BP systolic 96–135; BP diastolic 65–90
[2017-03-25 03:58] LABS: BASOPHILS 0.8 % (0-2); EOSINOPHILS 0.2 % (0-7); HEMATOCRIT 29.3 % (36.0-48.0); HEMOGLOBIN 9.4 g/dL (12-16); IMMATURE GRANULOCYTES 17.6 % (0-5); LYMPHOCYTES 24.6 % (15-50); MCHC 32.1 g/dL (31.0-37.0); MCV 93.6 fL (80.0-100.0); MEAN PLATELET VOLUME 10.8 fL (7.4-10.4); MONOCYTES 12.4 % (2-11); NEUTROPHILS 44.4 % (40-80); RBC 3.13 10x6/uL (4.00-5.40); RDW 17.6 % (11.5-14.5); WBC 6.3 10x3/uL (4.8-10.8)
[2017-03-25 04:06] LABS: PLATELET COUNT 217 10x3/uL (130-400)
[2017-03-25 04:12] LABS: CALC OSMOLALITY 293 mosm/kg (275-300); CALCIUM 7.8 mg/dL (8.5-10.1); CARBON DIOXIDE 34.2 mmol/L (21.0-32.0); CHLORIDE - SERUM 105 mmol/L (98-107); CREATININE - SERUM 0.4 mg/dL (0.6-1.3); GLUCOSE 157 mg/dL (74-106); PHOSPHOROUS 1.9 mg/dL (2.5-4.9); SODIUM 145 mmol/L (136-145); UREA NITROGEN 19 mg/dL (7-18); eGFR NON AFRICAN AMERICAN > 90 mL/min (90-120)
[2017-03-25 04:16] LABS: POTASSIUM - SERUM 2.5 mmol/L (3.5-5.1)
[2017-03-26] VITALS (24 sets, daily range): BP systolic 94–128; BP diastolic 53–83
[2017-03-26 03:46] LABS: EOSINOPHILS 0.1 % (0-7); HEMATOCRIT 28.4 % (36.0-48.0); HEMOGLOBIN 8.8 g/dL (12-16); IMMATURE GRANULOCYTES 22.9 % (0-5); MCH 29.6 pg (26.0-34.0); MEAN PLATELET VOLUME 10.1 fL (7.4-10.4); MONOCYTES 9.4 % (2-11); NEUTROPHILS 41.6 % (40-80); RBC 2.97 10x6/uL (4.00-5.40); RDW 17.8 % (11.5-14.5)
[2017-03-26 03:52] LABS: MCV 95.6 fL (80.0-100.0); PLATELET COUNT 261 10x3/uL (130-400); WBC 8.9 10x3/uL (4.8-10.8)
[2017-03-26 04:06] LABS: CALCIUM 8.3 mg/dL (8.5-10.1); CARBON DIOXIDE 27.9 mmol/L (21.0-32.0); CHLORIDE - SERUM 111 mmol/L (98-107); CREATININE - SERUM 0.3 mg/dL (0.6-1.3); SODIUM 146 mmol/L (136-145); UREA NITROGEN 20 mg/dL (7-18); eGFR NON AFRICAN AMERICAN > 90 mL/min (90-120)
[2017-03-26 04:12] LABS: CALC OSMOLALITY 293 mosm/kg (275-300); GLUCOSE 92 mg/dL (74-106); POTASSIUM - SERUM 3.5 mmol/L (3.5-5.1)
[2017-03-27] VITALS (24 sets, daily range): BP systolic 95–121; BP diastolic 47–82
[2017-03-27 04:17] LABS: BASOPHILS 2.9 % (0-2); EOSINOPHILS 0 % (0-7); HEMATOCRIT 27.1 % (36.0-48.0); HEMOGLOBIN 8.4 g/dL (12-16); IMMATURE GRANULOCYTES 23.6 % (0-5); LYMPHOCYTES 24.4 % (15-50); MCH 29.8 pg (26.0-34.0); MCV 96.1 fL (80.0-100.0); MEAN PLATELET VOLUME 10.1 fL (7.4-10.4); MONOCYTES 6.9 % (2-11); NEUTROPHILS 42.2 % (40-80); RBC 2.82 10x6/uL (4.00-5.40); RDW 18.1 % (11.5-14.5); WBC 9.7 10x3/uL (4.8-10.8)
[2017-03-27 04:19] LABS: PLATELET COUNT 315 10x3/uL (130-400)
[2017-03-27 04:25] LABS: CALC OSMOLALITY 292 mosm/kg (275-300); CALCIUM 8.6 mg/dL (8.5-10.1); CARBON DIOXIDE 29.3 mmol/L (21.0-32.0); CHLORIDE - SERUM 106 mmol/L (98-107); CREATININE - SERUM 0.3 mg/dL (0.6-1.3); POTASSIUM - SERUM 3.3 mmol/L (3.5-5.1); SODIUM 144 mmol/L (136-145); UREA NITROGEN 20 mg/dL (7-18); eGFR NON AFRICAN AMERICAN > 90 mL/min (90-120)
[2017-03-27 04:26] LABS: GLUCOSE 159 mg/dL (74-106)
[2017-03-28] VITALS (24 sets, daily range): BP systolic 94–128; BP diastolic 46–69
[2017-03-28 04:38] LABS: EOSINOPHILS 0 % (0-7); HEMATOCRIT 27.1 % (36.0-48.0); HEMOGLOBIN 8.3 g/dL (12-16); IMMATURE GRANULOCYTES 21.7 % (0-5); LYMPHOCYTES 17.7 % (15-50); MCH 29.6 pg (26.0-34.0); MCHC 30.6 g/dL (31.0-37.0); MCV 96.8 fL (80.0-100.0); MEAN PLATELET VOLUME 9.8 fL (7.4-10.4); MONOCYTES 7.3 % (2-11); NEUTROPHILS 52.3 % (40-80); PLATELET COUNT 345 10x3/uL (130-400); RDW 18.5 % (11.5-14.5); WBC 11.3 10x3/uL (4.8-10.8)
[2017-03-28 04:58] LABS: CALC OSMOLALITY 296 mosm/kg (275-300); CALCIUM 8.7 mg/dL (8.5-10.1); CARBON DIOXIDE 26.4 mmol/L (21.0-32.0); CHLORIDE - SERUM 106 mmol/L (98-107); CREATININE - SERUM 0.3 mg/dL (0.6-1.3); GLUCOSE 165 mg/dL (74-106); MAGNESIUM - SERUM 2.2 mg/dL (1.8-2.4); PHOSPHOROUS 3.7 mg/dL (2.5-4.9); SODIUM 145 mmol/L (136-145); UREA NITROGEN 23 mg/dL (7-18); eGFR NON AFRICAN AMERICAN > 90 mL/min (90-120)
[2017-03-28 05:06] LABS: POTASSIUM - SERUM 3.1 mmol/L (3.5-5.1)
[2017-03-28 21:07] LABS: ACID FAST SMEAR Negative (()); AFB SPECIMEN PROCESSING Concentration (())
[2017-03-29] VITALS (24 sets, daily range): BP systolic 90–118; BP diastolic 44–87
[2017-03-29 04:27] LABS: BASOPHILS 2.7 % (0-2); EOSINOPHILS 0.1 % (0-7); HEMATOCRIT 26.7 % (36.0-48.0); HEMOGLOBIN 8.2 g/dL (12-16); IMMATURE GRANULOCYTES 18.2 % (0-5); LYMPHOCYTES 17.9 % (15-50); MCH 29.8 pg (26.0-34.0); MCHC 30.7 g/dL (31.0-37.0); MCV 97.1 fL (80.0-100.0); MEAN PLATELET VOLUME 9.4 fL (7.4-10.4); MONOCYTES 7.5 % (2-11); NEUTROPHILS 53.6 % (40-80); PLATELET COUNT 359 10x3/uL (130-400); RBC 2.75 10x6/uL (4.00-5.40); RDW 18.9 % (11.5-14.5); WBC 12.1 10x3/uL (4.8-10.8)
[2017-03-29 04:41] LABS: CALC OSMOLALITY 297 mosm/kg (275-300); CARBON DIOXIDE 26.9 mmol/L (21.0-32.0); CHLORIDE - SERUM 110 mmol/L (98-107); GLUCOSE 134 mg/dL (74-106); MAGNESIUM - SERUM 2.1 mg/dL (1.8-2.4); PHOSPHOROUS 3.5 mg/dL (2.5-4.9); POTASSIUM - SERUM 3.6 mmol/L (3.5-5.1); SODIUM 147 mmol/L (136-145); UREA NITROGEN 24 mg/dL (7-18)
[2017-03-29 04:47] LABS: CREATININE - SERUM 0.4 mg/dL (0.6-1.3); eGFR NON AFRICAN AMERICAN > 90 mL/min (90-120)
[2017-03-30] VITALS (23 sets, daily range): BP systolic 85–135; BP diastolic 43–77
[2017-03-30 04:17] LABS: BASOPHILS 1.3 % (0-2); EOSINOPHILS 0 % (0-7); HEMATOCRIT 29.4 % (36.0-48.0); IMMATURE GRANULOCYTES 15.3 % (0-5); LYMPHOCYTES 18.8 % (15-50); MCH 29.8 pg (26.0-34.0); MCHC 30.6 g/dL (31.0-37.0); MCV 97.4 fL (80.0-100.0); MEAN PLATELET VOLUME 9.6 fL (7.4-10.4); MONOCYTES 7.7 % (2-11); NEUTROPHILS 56.9 % (40-80); PLATELET COUNT 416 10x3/uL (130-400); RBC 3.02 10x6/uL (4.00-5.40); RDW 18.7 % (11.5-14.5); WBC 11.9 10x3/uL (4.8-10.8)
[2017-03-30 04:30] LABS: CALC OSMOLALITY 300 mosm/kg (275-300); CALCIUM 9.2 mg/dL (8.5-10.1); CARBON DIOXIDE 27.3 mmol/L (21.0-32.0); CHLORIDE - SERUM 106 mmol/L (98-107); CREATININE - SERUM 0.5 mg/dL (0.6-1.3); GLUCOSE 155 mg/dL (74-106); SODIUM 147 mmol/L (136-145); UREA NITROGEN 29 mg/dL (7-18); eGFR NON AFRICAN AMERICAN > 90 mL/min (90-120)
[2017-03-30 04:33] LABS: POTASSIUM - SERUM 2.9 mmol/L (3.5-5.1)
[2017-03-30 10:12] LABS: FUNGUS STAIN Final report (())
[2017-03-31] VITALS (24 sets, daily range): BP systolic 95–126; BP diastolic 54–90
[2017-03-31 04:49] LABS: BASOPHILS 0.9 % (0-2); EOSINOPHILS 0.1 % (0-7); HEMATOCRIT 27.1 % (36.0-48.0); HEMOGLOBIN 8.3 g/dL (12-16); IMMATURE GRANULOCYTES 14.8 % (0-5); LYMPHOCYTES 19.2 % (15-50); MCH 30.3 pg (26.0-34.0); MCHC 30.6 g/dL (31.0-37.0); MCV 98.9 fL (80.0-100.0); MEAN PLATELET VOLUME 9.8 fL (7.4-10.4); MONOCYTES 8.5 % (2-11); NEUTROPHILS 56.5 % (40-80); PLATELET COUNT 362 10x3/uL (130-400); RBC 2.74 10x6/uL (4.00-5.40); RDW 18.9 % (11.5-14.5); WBC 10.7 10x3/uL (4.8-10.8)
[2017-03-31 05:00] LABS: CALC OSMOLALITY 301 mosm/kg (275-300); CALCIUM 9.1 mg/dL (8.5-10.1); CARBON DIOXIDE 25.1 mmol/L (21.0-32.0); CHLORIDE - SERUM 108 mmol/L (98-107); CREATININE - SERUM 0.5 mg/dL (0.6-1.3); GLUCOSE 144 mg/dL (74-106); SODIUM 147 mmol/L (136-145); UREA NITROGEN 31 mg/dL (7-18); eGFR NON AFRICAN AMERICAN > 90 mL/min (90-120)
[2017-03-31 05:16] LABS: POTASSIUM - SERUM 3.5 mmol/L (3.5-5.1)
[2017-04-01] VITALS (24 sets, daily range): BP systolic 92–121; BP diastolic 55–76
[2017-04-01 04:20] LABS: BASOPHILS 1.2 % (0-2); EOSINOPHILS 0.2 % (0-7); HEMATOCRIT 28.7 % (36.0-48.0); HEMOGLOBIN 8.7 g/dL (12-16); IMMATURE GRANULOCYTES 12.2 % (0-5); MCH 29.7 pg (26.0-34.0); MCHC 30.3 g/dL (31.0-37.0); MEAN PLATELET VOLUME 9.8 fL (7.4-10.4); MONOCYTES 8.4 % (2-11); PLATELET COUNT 370 10x3/uL (130-400); RBC 2.93 10x6/uL (4.00-5.40); RDW 18.7 % (11.5-14.5); WBC 11.1 10x3/uL (4.8-10.8)
[2017-04-01 04:34] LABS: CALC OSMOLALITY 298 mosm/kg (275-300); CALCIUM 9.4 mg/dL (8.5-10.1); CARBON DIOXIDE 24.9 mmol/L (21.0-32.0); CHLORIDE - SERUM 109 mmol/L (98-107); CREATININE - SERUM 0.4 mg/dL (0.6-1.3); GLUCOSE 142 mg/dL (74-106); SODIUM 145 mmol/L (136-145); UREA NITROGEN 35 mg/dL (7-18); eGFR NON AFRICAN AMERICAN > 90 mL/min (90-120)
[2017-04-02] VITALS (42 sets, daily range): BP systolic 91–145; BP diastolic 53–81
[2017-04-02 04:46] LABS: BASOPHILS 1.4 % (0-2); EOSINOPHILS 0.1 % (0-7); HEMATOCRIT 28.2 % (36.0-48.0); HEMOGLOBIN 8.5 g/dL (12-16); IMMATURE GRANULOCYTES 12.5 % (0-5); LYMPHOCYTES 19.6 % (15-50); MCH 29.7 pg (26.0-34.0); MCHC 30.1 g/dL (31.0-37.0); MCV 98.6 fL (80.0-100.0); MONOCYTES 7.6 % (2-11); NEUTROPHILS 58.8 % (40-80); PLATELET COUNT 355 10x3/uL (130-400); RBC 2.86 10x6/uL (4.00-5.40); RDW 18.6 % (11.5-14.5); WBC 11.3 10x3/uL (4.8-10.8)
[2017-04-02 04:50] LABS: CALC OSMOLALITY 302 mosm/kg (275-300); CALCIUM 9.5 mg/dL (8.5-10.1); CARBON DIOXIDE 25.6 mmol/L (21.0-32.0); CHLORIDE - SERUM 110 mmol/L (98-107); CREATININE - SERUM 0.4 mg/dL (0.6-1.3); GLUCOSE 132 mg/dL (74-106); MAGNESIUM - SERUM 2.1 mg/dL (1.8-2.4); POTASSIUM - SERUM 4.1 mmol/L (3.5-5.1); SODIUM 146 mmol/L (136-145); UREA NITROGEN 40 mg/dL (7-18); eGFR NON AFRICAN AMERICAN > 90 mL/min (90-120)
[2017-04-02 15:25] LABS: FUNGUS CULTURE RESULT 1 Candida glabrata (()); FUNGUS MYCOLOGY CULTURE Preliminary report (())
[2017-04-03] VITALS (22 sets, daily range): BP systolic 91–127; BP diastolic 54–79
[2017-04-03 03:55] LABS: BASOPHILS 0.5 % (0-2); EOSINOPHILS 0.1 % (0-7); HEMOGLOBIN 8.3 g/dL (12-16); IMMATURE GRANULOCYTES 5.1 % (0-5); LYMPHOCYTES 12.4 % (15-50); MCH 30.1 pg (26.0-34.0); MCHC 30.7 g/dL (31.0-37.0); MCV 97.8 fL (80.0-100.0); MEAN PLATELET VOLUME 9.8 fL (7.4-10.4); MONOCYTES 5.7 % (2-11); NEUTROPHILS 76.2 % (40-80); PLATELET COUNT 286 10x3/uL (130-400); RBC 2.76 10x6/uL (4.00-5.40); RDW 18.3 % (11.5-14.5)
[2017-04-03 03:59] LABS: WBC 18.2 10x3/uL (4.8-10.8)
[2017-04-03 04:16] LABS: CALC OSMOLALITY 288 mosm/kg (275-300); CALCIUM 9.4 mg/dL (8.5-10.1); CARBON DIOXIDE 20.6 mmol/L (21.0-32.0); CHLORIDE - SERUM 108 mmol/L (98-107); CREATININE - SERUM 0.3 mg/dL (0.6-1.3); GLUCOSE 143 mg/dL (74-106); MAGNESIUM - SERUM 1.9 mg/dL (1.8-2.4); POTASSIUM - SERUM 3.9 mmol/L (3.5-5.1); SODIUM 141 mmol/L (136-145); eGFR NON AFRICAN AMERICAN > 90 mL/min (90-120)
[2017-04-03 04:17] LABS: UREA NITROGEN 28 mg/dL (7-18)
[2017-04-04] VITALS (24 sets, daily range): BP systolic 93–138; BP diastolic 60–90
[2017-04-04 03:56] LABS: BASOPHILS 0.5 % (0-2); EOSINOPHILS 0.1 % (0-7); HEMATOCRIT 26.5 % (36.0-48.0); HEMOGLOBIN 8.1 g/dL (12-16); IMMATURE GRANULOCYTES 7.7 % (0-5); MCH 29.8 pg (26.0-34.0); MCHC 30.6 g/dL (31.0-37.0); MCV 97.4 fL (80.0-100.0); MEAN PLATELET VOLUME 9.7 fL (7.4-10.4); MONOCYTES 4.8 % (2-11); NEUTROPHILS 72.9 % (40-80); PLATELET COUNT 256 10x3/uL (130-400); RBC 2.72 10x6/uL (4.00-5.40); RDW 18.8 % (11.5-14.5)
[2017-04-04 04:10] LABS: CALCIUM 9.6 mg/dL (8.5-10.1); CARBON DIOXIDE 18.4 mmol/L (21.0-32.0); CHLORIDE - SERUM 110 mmol/L (98-107); GLUCOSE 127 mg/dL (74-106); MAGNESIUM - SERUM 1.8 mg/dL (1.8-2.4); POTASSIUM - SERUM 4.1 mmol/L (3.5-5.1); SODIUM 143 mmol/L (136-145)
[2017-04-04 04:14] LABS: CALC OSMOLALITY 288 mosm/kg (275-300); CREATININE - SERUM 0.2 mg/dL (0.6-1.3); UREA NITROGEN 19 mg/dL (7-18); eGFR NON AFRICAN AMERICAN > 90 mL/min (90-120)
[2017-04-05] VITALS (24 sets, daily range): BP systolic 109–159; BP diastolic 62–108
[2017-04-05 03:36] LABS: BASOPHILS 0.4 % (0-2); EOSINOPHILS 0 % (0-7); HEMATOCRIT 28.8 % (36.0-48.0); HEMOGLOBIN 8.8 g/dL (12-16); IMMATURE GRANULOCYTES 5.7 % (0-5); LYMPHOCYTES 9.2 % (15-50); MCH 29.7 pg (26.0-34.0); MCHC 30.6 g/dL (31.0-37.0); MCV 97.3 fL (80.0-100.0); MEAN PLATELET VOLUME 9.8 fL (7.4-10.4); MONOCYTES 5.6 % (2-11); NEUTROPHILS 79.1 % (40-80); PLATELET COUNT 267 10x3/uL (130-400); RBC 2.96 10x6/uL (4.00-5.40); RDW 18.7 % (11.5-14.5)
[2017-04-05 03:37] LABS: WBC 18.2 10x3/uL (4.8-10.8)
[2017-04-05 04:05] LABS: CALC OSMOLALITY 291 mosm/kg (275-300); CALCIUM 9.6 mg/dL (8.5-10.1); CARBON DIOXIDE 20.3 mmol/L (21.0-32.0); CHLORIDE - SERUM 108 mmol/L (98-107); GLUCOSE 154 mg/dL (74-106); POTASSIUM - SERUM 3.6 mmol/L (3.5-5.1); SODIUM 144 mmol/L (136-145); UREA NITROGEN 17 mg/dL (7-18)
[2017-04-05 04:06] LABS: CREATININE - SERUM 0.3 mg/dL (0.6-1.3); eGFR NON AFRICAN AMERICAN > 90 mL/min (90-120)
[2017-04-06] VITALS (13 sets, daily range): BP systolic 72–149; BP diastolic 52–93
[2017-04-06 03:40] LABS: BASOPHILS 0.2 % (0-2); EOSINOPHILS 0 % (0-7); HEMATOCRIT 28.7 % (36.0-48.0); HEMOGLOBIN 8.7 g/dL (12-16); IMMATURE GRANULOCYTES 5.1 % (0-5); MCH 29.8 pg (26.0-34.0); MCHC 30.3 g/dL (31.0-37.0); MCV 98.3 fL (80.0-100.0); MEAN PLATELET VOLUME 9.8 fL (7.4-10.4); MONOCYTES 5.6 % (2-11); NEUTROPHILS 80.1 % (40-80); PLATELET COUNT 278 10x3/uL (130-400); RBC 2.92 10x6/uL (4.00-5.40); RDW 18.4 % (11.5-14.5); WBC 20.5 10x3/uL (4.8-10.8)
[2017-04-06 03:57] LABS: CALCIUM 9.3 mg/dL (8.5-10.1); CHLORIDE - SERUM 110 mmol/L (98-107); CREATININE - SERUM 0.3 mg/dL (0.6-1.3); GLUCOSE 189 mg/dL (74-106); SODIUM 143 mmol/L (136-145); eGFR NON AFRICAN AMERICAN > 90 mL/min (90-120)
[2017-04-06 04:00] LABS: CALC OSMOLALITY 295 mosm/kg (275-300); CARBON DIOXIDE 25.6 mmol/L (21.0-32.0); UREA NITROGEN 29 mg/dL (7-18)
== END 2017-04-06 17:04 | DRG 4 ==
LOC: D.ER 12:17 → D.M2 15:17 → D.ICU 15:17
PROVIDERS: Emergency Medicine; Family Medicine; Internal Medicine Cardiovascular Disease; Internal Medicine Gastroenterology; Internal Medicine Hematology & Oncology; Internal Medicine Nephrology; Internal Medicine Pulmonary Disease; Student in an Organized Health Care Education/Training Program
PROC: 0BCB8ZZ Extirpation of Matter from Left Lower Lobe Bronchus, Via Natural or Artificial Opening Endoscopic (ICD-10-PCS; principal; 2017-02-25)
PROC: 0BC48ZZ Extirpation of Matter from Right Upper Lobe Bronchus, Via Natural or Artificial Opening Endoscopic (ICD-10-PCS; 2017-02-25)
PROC: 05HC33Z Insertion of Infusion Device into Left Basilic Vein, Percutaneous Approach (ICD-10-PCS; 2017-03-10)
PROC: B54NZZA Ultrasonography of Left Upper Extremity Veins, Guidance (ICD-10-PCS; 2017-03-10)
PROC: 5A1945Z Respiratory Ventilation, 24-96 Consecutive Hours (ICD-10-PCS; 2017-03-19)
PROC: 0BH17EZ Insertion of Endotracheal Airway into Trachea, Via Natural or Artificial Opening (ICD-10-PCS; 2017-03-19)
PROC: 0DJ08ZZ Inspection of Upper Intestinal Tract, Via Natural or Artificial Opening Endoscopic (ICD-10-PCS; 2017-03-20)
PROC: 0BDB8ZX Extraction of Left Lower Lobe Bronchus, Via Natural or Artificial Opening Endoscopic, Diagnostic (ICD-10-PCS; 2017-03-27)
PROC: 0B113F4 Bypass Trachea to Cutaneous with Tracheostomy Device, Percutaneous Approach (ICD-10-PCS; 2017-04-02)
PROC: 0DH63UZ Insertion of Feeding Device into Stomach, Percutaneous Approach (ICD-10-PCS; 2017-04-03)
DX: J15.9 Unspecified bacterial pneumonia (principal); I50.31 Acute diastolic (congestive) heart failure; J96.21 Acute and chronic respiratory failure with hypoxia; K29.01 Acute gastritis with bleeding; I47.1 Supraventricular tachycardia; J44.1 Chronic obstructive pulmonary disease with (acute) exacerbation; T17.590A Other foreign object in bronchus causing asphyxiation, initial encounter; J44.0 Chronic obstructive pulmonary disease with (acute) lower respiratory infection; J98.11 Atelectasis; N39.0 Urinary tract infection, site not specified; D61.818 Other pancytopenia; D62 Acute posthemorrhagic anemia; A04.72 Enterocolitis due to Clostridium difficile, not specified as recurrent; I11.0 Hypertensive heart disease with heart failure; I48.91 Unspecified atrial fibrillation; M85.80 Other specified disorders of bone density and structure, unspecified site; I95.2 Hypotension due to drugs; R39.2 Extrarenal uremia; E86.0 Dehydration; R10.2 Pelvic and perineal pain; I25.119 Atherosclerotic heart disease of native coronary artery with unspecified angina pectoris; E87.6 Hypokalemia; S20.219A Contusion of unspecified front wall of thorax, initial encounter; X58.XXXA Exposure to other specified factors, initial encounter; D69.6 Thrombocytopenia, unspecified; Z66 Do not resuscitate